=== PATIENT | male | born 1950 | race Caucasian/White ===

== ENCOUNTER 2022-08-23 13:56 | Emergency (ER) | payer MEDICARE, OTHER, SELFPAY ==
[2022-08-23] VITALS (10 sets, daily range): BP systolic 94–176; BP diastolic 71–99; PULSE 72–83; RESP 14–20; TEMP 36.8; O2SAT 88–100; BMI 25.2
--- NOTE | 2022-08-23 14:07 | ECG_ITS ---
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
--- NOTE | 2022-08-23 14:07 | XR_ITS ---
The [place] [id number] Patient Name: LYSSA VÁZQUEZ MRN: [id number] date: 1950 Sex: M Assigned Patient Location: ER Current Patient Location: ED.MAIN Accession/Order Number: [id number] Exam Date: 08/23/2022 14:20 Report Date: 08/23/2022 15:00 At the request of: ASTER LOPES Procedure: XR chest 1V EXAMINATION: XR chest 1V HISTORY: Dyspnea COMPARISON: XR chest 04/22/2022 FINDINGS: LUNGS: Hyperexpanded lungs without appreciable infiltrates or mass. VASCULATURE: No increased pulmonary vasculature. PLEURA: No pneumothorax, effusion, or pleural thickening. CARDIAC: No cardiomegaly or cardiac silhouette abnormality. MEDIASTINUM: No visible mass or adenopathy. BONES: No fracture or visible bone lesion. OTHER: Negative. IMPRESSION: 1. No acute cardiopulmonary process. Stable chest. Electronically authenticated by: HUGO DELEON Date: 08/23/2022 15:00
--- NOTE | 2022-08-23 14:11 | ED.SOB1 ---
HPI - SOB/Dyspnea General Chief Complaint: Shortness of Breath/Dyspnea Stated Complaint: SHORTNESS OF BREATH Time Seen by Provider: 08/23/22 13:58 Source: patient and family Mode of arrival: walk-in Limitations: no limitations History of Present Illness HPI Narrative: Patient is a 72-year-old male who presents to the emergency department for the evaluation of increasing shortness of breath over the last three days. 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 He wears oxygen by 3 L most of the time while he is at home and ambulatory although he arrives without oxygen. He states he is more winded when he is up and moving around although he states he is in no distress or significant dyspnea at rest. He reports some tightness in the chest when he feels like he cannot take a deep breath but has no chest pain. He denies fevers, vomiting, diarrhea, leg swelling. He has had cough with yellow sputum production. No hemoptysis. He has not been on any recent antibiotics or steroids. Related Data Previous Rx's Medication Instructions Recorded azithromycin 250 mg tablet See Rx Instructions PO .COMPLEX #6 08/23/22 (Zithromax Z-Robert) tabs prednisone 20 mg tablet 60 mg PO DAILY #12 tabs 08/23/22 Allergies Allergy/AdvReac Type Severity Reaction Status Date / Time ciprofloxacin [From Cipro] AdvReac Severe Cramping Verified 08/23/22 14:56 of the Muscles levofloxacin AdvReac Severe Cramping Verified 08/23/22 14:56 of the Muscles Review of Systems ROS Constitutional Denies: fever or chills Ears, nose, mouth, and throat Denies: throat pain Cardiovascular Denies: chest pain Respiratory Reports: shortness of breath and cough Gastrointestinal Denies: nausea or vomiting Integumentary/Breast Denies: rash Allergic/Immunologic Denies: hives PFSH PFSH Social History Smoking status: Former smoker Exam Narrative Exam Narrative: Gen.: Awake, alert, in no distress Head: Normocephalic, atraumatic ENT: Moist mucous membranes Respiratory: No respiratory distress, speaks in full sentences, diminished lung sounds globally Cardio: Regular rate and rhythm Gastrointestinal: Abdomen is soft, nondistended and nontender to palpation Extremities: Moves extremities equally, no injuries noted, no pedal edema Psych: Normal mood and affect Neuro: No focal neuro deficit Skin: Warm, dry, intact Constitutional Vital Signs - 24 hr 08/23/22 14:00 08/23/22 14:27 08/23/22 14:28 Temperature 98.2 F Pulse Rate 83 Pulse Rate [Monitor] 83 Respiratory Rate 18 Blood Pressure [Left Arm] 176/99 H Pulse Oximetry 88 L 99 Oxygen Delivery Method Room Air Nasal Cannula Oxygen Delivery Flow Rate 2.5 Course Vital Signs Vital signs: Vital Signs Temperature 98.2 F 08/23/22 14:00 Pulse Rate 83 08/23/22 14:00 Respiratory Rate 18 08/23/22 14:00 Blood Pressure 176/99 H 08/23/22 14:00 Pulse Oximetry 88 L 08/23/22 14:00 Oxygen Delivery Method Room Air 08/23/22 14:00 Temperature 98.2 F 08/23/22 14:00 Pulse Rate 83 08/23/22 14:27 Respiratory Rate 18 08/23/22 14:00 Blood Pressure 176/99 H 08/23/22 14:00 Pulse Oximetry 99 08/23/22 14:28 Oxygen Delivery Method Nasal Cannula 08/23/22 14:28 Oxygen Delivery Flow Rate 2.5 08/23/22 14:28 MDM - SOB/Dyspnea MDM Narrative Medical decision making narrative: Patient was treated with IV steroids, breathing treatments in the emergency department. He has no hypoxia on his regular home oxygen by nasal cannula. Lab studies show normal troponin and BNP. Chest x-ray is stable. Patient with no tachycardia and blood pressure improved on reevaluation. He will be started on antibiotics and steroids for chronic obstructive pulmonary disease exacerbation. He is encouraged to continue to wear his oxygen [id number], continue breathing treatments and inhalers at home. Follow-up with pulmonology and PCP and return to the emergency department if symptoms change or worsen. Patient reevaluated by attending physician prior to discharge in no distress. Medical Records Attestation: I reviewed the patient's medical records. Lab Data Attestation: I reviewed the patient's lab results. Labs: Lab Results 08/23/22 Range/Units 14:10 WBC 10.3 (4.0-11.0) 10^3/uL RBC 4.69 L (4.70-6.10) 10^6/uL Hgb 15.2 (14.0-18.0) g/dL Hct 46.9 (42.0-54.0) % MCV 100.0 H (80.0-94.0) fL MCH 32.4 (25.9-34.0) pg MCHC 32.4 (29.9-35.2) g/dL RDW 12.7 (11.0-15.0) % Plt Count 231 (150-450) 10^3/uL MPV 10.3 (9.5-13.5) fL Neut % (Auto) 70.5 (43.0-75.0) % Lymph % (Auto) 17.6 L (20.5-60.0) % [place] % (Auto) 7.1 (1.7-12.0) % Eos % (Auto) 3.2 (0.9-7.0) % Baso % (Auto) 0.3 (0.2-2.0) % Neut # (Auto) 7.2 H (1.4-6.5) 10^3/uL Lymph # (Auto) 1.8 (1.2-3.8) 10^3/uL [place] # (Auto) 0.7 (0.3-0.8) 10^3/uL Eos # (Auto) 0.3 (0.0-0.7) 10^3/uL Baso # (Auto) 0.0 (0.0-0.1) 10^3/uL Abs Immat Gran (auto) 0.13 H (0.00-0.03) 10^3/uL Imm/Tot Granulo (auto) 1.3 H (0.0-0.5) % PT 9.9 (9.0-11.6) sec INR 0.93 APTT 29.2 (22.3-36.2) sec Sodium 141 (136-145) mmol/L Potassium 4.1 (3.5-5.1) mmol/L Chloride 103 (98-107) mmol/L Carbon Dioxide 33.0 H (21.0-32.0) mmol/L Anion Gap 9.1 BUN 11.0 (7.0-18.0) mg/dL Creatinine 0.80 (0.70-1.30) mg/dL Est GFR ( Amer) >60 (>=60) Est GFR (Non-Af Amer) >60 (>=60) BUN/Creatinine Ratio 13.8 Glucose 105 (74-106) mg/dL Calcium 9.0 (8.5-10.1) mg/dL Total Bilirubin 0.3 (0.2-1.0) mg/dL AST 22 (15-37) U/L ALT 37 (16-63) U/L Alkaline Phosphatase 82 (46-116) U/L Troponin I High Sens 9.0 (4.0-76.1) pg/mL NT-Pro-B Natriuret Pep 255.0 (<=900.0) pg/mL Total Protein 7.4 (6.4-8.2) g/dL Albumin 3.8 (3.4-5.0) g/dL Globulin 3.6 g/dL Albumin/Globulin Ratio 1.1 Imaging Data Chest x-ray: Radiologist's impression: Procedure: XR chest 1V EXAMINATION: XR chest 1V HISTORY: Dyspnea COMPARISON: XR chest 04/22/2022 FINDINGS: LUNGS: Hyperexpanded lungs without appreciable infiltrates or mass. VASCULATURE: No increased pulmonary vasculature. PLEURA: No pneumothorax, effusion, or pleural thickening. CARDIAC: No cardiomegaly or cardiac silhouette abnormality. MEDIASTINUM: No visible mass or adenopathy. BONES: No fracture or visible bone lesion. OTHER: Negative. IMPRESSION: 1. No acute cardiopulmonary process. Stable chest. Electronically authenticated by: HUGO DELEON Date: 08/23/2022 15:00 ECG Data Attestation: ?I have reviewed the pertinent ECG results. (Normal sinus rhythm at a rate of seventy-two with no acute [address] elevation or ectopy. EKG reviewed by attending physician) ECG interpretation date: 08/23/22 ECG interpretation time: 14:14 Discharge Plan Discharge Chief Complaint: Shortness of Breath/Dyspnea Clinical Impression: Shortness of breath, Chronic obstructive pulmonary disease Patient Disposition: Home, Self-Care Time of Disposition Decision: 15:07 Condition: Good Prescriptions / Home Meds: New prednisone 20 mg tablet 60 mg PO DAILY Qty: 12 0RF Rx Instructions: 3 tabs daily for 2 days, then 2 tabs daily for 2 days, then 1 tab daily for 2 days azithromycin [Zithromax Z-Robert] 250 mg tablet See Rx Instructions .ROUTE .COMPLEX Qty: 6 0RF Rx Instructions: For 250 mg dose pack: take 500 mg today (day 1), then 250 mg for 4 days (days 2-5) Instructions: COPD (Chronic Obstructive Pulmonary Disease) (ED), Dyspnea (ED) Stand Alone Forms: Portal Instructions Referrals: BRITTANI CALERO [Primary Care Provider] - 1 week
[2022-08-23 14:27] LABS: Basophils Percent Auto 0.3 % (0.2-2.0); Eosinophils Absolute Auto 0.3 10^3/uL (0.0-0.7); Eosinophils Percent Auto 3.2 % (0.9-7.0); Hematocrit 46.9 % (42.0-54.0); Hemoglobin 15.2 g/dL (14.0-18.0); Immature Granulocytes Abs Auto 0.13 10^3/uL (0.00-0.03); Immature Granulocytes Pct Auto 1.3 % (0.0-0.5); Lymphocytes Absolute Auto 1.8 10^3/uL (1.2-3.8); Lymphocytes Percent Auto 17.6 % (20.5-60.0); Mean Corpuscular HGB Conc 32.4 g/dL (29.9-35.2); Mean Corpuscular Hemoglobin 32.4 pg (25.9-34.0); Mean Platelet Volume 10.3 fL (9.5-13.5); Monocytes Absolute Auto 0.7 10^3/uL (0.3-0.8); Monocytes Percent Auto 7.1 % (1.7-12.0); Neutrophils Absolute Auto 7.2 10^3/uL (1.4-6.5); Neutrophils Percent Auto 70.5 % (43.0-75.0); Platelet Count 231 10^3/uL (150-450); Red Blood Count 4.69 10^6/uL (4.70-6.10); Red Cell Distribution Width 12.7 % (11.0-15.0); White Blood Count 10.3 10^3/uL (4.0-11.0)
[2022-08-23] MEDS: IPRATROPIUM/ALBUTEROL SULFATE 3 ML AMPUL.NEB IH (14:27)
[2022-08-23] MEDS: ALBUTEROL SULFATE 2.5 MG/3 ML VIAL NEB IH (14:27)
--- NOTE | 2022-08-23 14:29 | RESP.RT ---
titrated down to 1L
[2022-08-23 14:47] LABS: INR 0.93; Partial Thromboplastin Time 29.2 sec (22.3-36.2); Prothrombin Time 9.9 sec (9.0-11.6)
[2022-08-23 14:51] LABS: Alanine Aminotransferase 37 U/L (16-63); Albumin Globulin Ratio 1.1; Albumin Level 3.8 g/dL (3.4-5.0); Alkaline Phosphatase 82 U/L (46-116); Anion Gap 9.1; Aspartate Amino Transferase 22 U/L (15-37); BUN Creatinine Ratio 13.8; Bilirubin Total 0.3 mg/dL (0.2-1.0); Chloride 103 mmol/L (98-107); Estimated GFR (African America >60 (>=60); Estimated GFR (Non-African Ame >60 (>=60); Globulin 3.6 g/dL; Glucose 105 mg/dL (74-106); Potassium 4.1 mmol/L (3.5-5.1); Sodium 141 mmol/L (136-145); Total Protein 7.4 g/dL (6.4-8.2)
[2022-08-23] MEDS: METHYLPREDNISOLONE SOD SUCC PF 125 MG/2 ML VIAL IVP (14:55)
--- NOTE | 2022-08-23 15:06 | PC.NURSE ---
placed on home O2 upon arrival of 3L NC -- pt did not bring his home 02. SpO2 upon arrival was 88-89% on RA. Pt did walk back to room. pt has h/o COPD
== END 2022-08-23 15:48 | disposition home or self-care (01) ==
PROVIDERS: Physician Assistant; Emergency Provider Emergency Medicine Emergency Medical Services; PCP Family Medicine
DX: R06.02 Shortness of breath (principal); J44.9 Chronic obstructive pulmonary disease, unspecified; Z99.81 Dependence on supplemental oxygen; Z87.891 Personal history of nicotine dependence
CPT/HCPCS: 36415; 71045; 80053; 83880; 84484; 85025; 85610; 85730; 93005; 94640; 96374; 99285; J2930

== ENCOUNTER 2022-12-31 12:27 | Emergency (ER) | payer MEDICARE, OTHER, SELFPAY ==
[2022-12-31] VITALS (12 sets, daily range): BP systolic 128–180; BP diastolic 70–98; PULSE 70–80; RESP 8–22; TEMP 36.7; O2SAT 88–100; BMI 24.4
--- NOTE | 2022-12-31 12:30 | XR_ITS ---
The [address] [address] Patient Name: LYSSA VÁZQUEZ MRN: [id number] date: 1950 Sex: M Assigned Patient Location: ER Current Patient Location: ER Accession/Order Number: [id number] Exam Date: 12/31/2022 13:15 Report Date: 12/31/2022 14:08 At the request of: SAPNA BRUNO Procedure: XR chest 1V EXAM: XR chest 1V INDICATION: cp. COMPARISON: Chest radiograph 08/23/2022 TECHNIQUE: Single frontal view of the chest FINDINGS: Normal cardiomediastinal contours. No acute infiltrative process. No pleural effusion or pneumothorax. No acute osseous abnormality. XR/XR chest 1V IMPRESSION: No acute cardiopulmonary process. Electronically authenticated by: ASHOK WATKINS Date: 12/31/2022 14:08
--- NOTE | 2022-12-31 12:30 | ECG_ITS ---
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
--- NOTE | 2022-12-31 12:41 | PC.NURSE ---
Patient pulse ox, 88-90% on room air after walking back to room, patient feels SOB with exertion. After resting pulsd Ox. up to 96% on room air. Patient does use home oxygen.
--- NOTE | 2022-12-31 12:48 | ED.SOB1 ---
HPI - SOB/Dyspnea General Chief Complaint: Shortness of Breath/Dyspnea Stated Complaint: CHEST PAIN FLAM AND SHORTNESS OF BREATH Time Seen by Provider: 12/31/22 12:30 Source: patient Mode of arrival: walk-in Limitations: no limitations History of Present Illness HPI Narrative: Patient presented to us with a 2 days 3 of cough productive associated shortness of breath and chest congestion, there was no exposure to anybody with similar symptoms the patient also had no fever chills or nausea or vomiting or any diarrhea Otherwise he have no complaints Related Data Home Medications Medication Instructions Recorded Confirmed albuterol sulfate 90 mcg/actuation 2 puff inhalation Q6H PRN 12/31/22 12/31/22 aerosol inhaler shortness of breath or wheezing budesonide-formoterol HFA 160 1 puff inhalation Q12H 12/31/22 12/31/22 mcg-4.5 mcg/actuation aerosol inhaler (Symbicort) ipratropium 0.5 mg-albuterol 3 mg ml inhalation Q6H 12/31/22 (2.5 mg base)/3 mL nebulization soln levothyroxine 88 mcg tablet 88 mcg PO DAILY 12/31/22 12/31/22 metoprolol succinate 100 mg 100 mg PO DAILY 12/31/22 12/31/22 tablet,extended release 24 hr primidone 50 mg tablet 50 mg PO DAILY 12/31/22 12/31/22 tamsulosin 0.4 mg capsule 0.4 mg PO Q24H 12/31/22 12/31/22 Previous Rx's Medication Instructions Recorded azithromycin 250 mg tablet See Rx Instructions PO .COMPLEX #6 12/31/22 (Zithromax Z-Robert) tabs prednisone 20 mg tablet 40 mg PO DAILY 5 days #10 tabs 12/31/22 Allergies Allergy/AdvReac Type Severity Reaction Status Date / Time ciprofloxacin [From Cipro] AdvReac Severe Cramping Verified 12/31/22 12:33 of the Muscles levofloxacin AdvReac Severe Cramping Verified 12/31/22 12:33 of the Muscles Review of Systems ROS Status of ROS 10 or more systems reviewed and unremarkable except as noted in history and below PFSH PFSH Social History Smoking status: Former smoker Exam Narrative Exam Narrative: Nurses notes and vital signs reviewed and patient is not hypoxic. General: Well-appearing and in no apparent distress. Skin: Warm, dry, no pallor noted. No rash. Head: Normocephalic, atraumatic. Neck: Supple, non-tender. Eye: Pupils are equal, round and EOMI. No scleral icterus. Ears, Nose, Mouth, and Throat: TM are clear, no nasal mucosal hypertrophy. Oral mucosa is moist, no posterior oropharynx erythema, uvula is mid-line Cardiovascular: Regular Rate and Rhythm without murmur, gallop or rub. Respiratory: No accessory muscle use or respiratory distress. Lungs there is distant breathing sound in both lung rocha and decreased airway in the bases Chest Wall: no tenderness Back: No midline thoracic or lumbar vertebral tenderness. No CVA tenderness Musculoskeletal: normal ROM, no calf or popliteal tenderness, no lower extremity edema/swelling GI: Abdomen is soft, non-distended. Normal bowel sounds. No masses appreciated. No tenderness to palpation. No rebound, guarding, or rigidity noted. Neurological: A&O x4. No cranial nerve dysfunction observed. No truncal ataxia. Moves all extremities. Sensation intact. Psychiatric: Cooperative and interactive. Normal mood and affect. Constitutional Vital Signs, click to edit/add: Last Vital Signs Temp 98.0 F 12/31/22 12:33 Pulse 70 12/31/22 14:00 Resp 13 12/31/22 14:00 BP 128/70 12/31/22 14:00 Pulse Ox 95 12/31/22 14:00 O2 Del Method Room Air 12/31/22 13:02 Course Vital Signs Vital signs: Vital Signs Temperature 98.0 F 12/31/22 12:33 Pulse Rate 80 12/31/22 12:33 Respiratory Rate 22 12/31/22 12:33 Blood Pressure 180/98 H 12/31/22 12:33 Pulse Oximetry 90 L 12/31/22 12:33 Oxygen Delivery Method Room Air 12/31/22 12:33 Temperature 98.0 F 12/31/22 12:33 Pulse Rate 70 12/31/22 14:00 Respiratory Rate 13 12/31/22 14:00 Blood Pressure 128/70 12/31/22 14:00 Pulse Oximetry 95 12/31/22 14:00 Oxygen Delivery Method Room Air 12/31/22 13:02 MDM - SOB/Dyspnea MDM Narrative Medical decision making narrative: The patient EKG showing sinus rhythm with a heart rate of [address] elevation or depression he also has a right bundle masha block The patient chest x-ray showed no acute pathology and the CBC and chemistry are within normal Also negative troponin but the patient did not had any chest pain mostly chest congestion secondary to his COPD exacerbation The patient feeling better after being treated with Solu-Medrol he had to stop his prednisone 5 mg daily right now and continue 5 Days course of 40 mg daily The patient also started on a Z-Robert he is instructed to follow-up with his primary care within a week The patient is to follow up with primary care physician in next 2-3 days or to return to the emergency department should any of the signs or symptoms worsen or new symptoms develop. The patient agrees with the following Diagnosis and Treatment plan and the patient will be discharged home. Lab Data Labs: Lab Results 12/31/22 Range/Units 12:45 WBC 9.9 (4.0-11.0) 10^3/uL RBC 4.45 L (4.70-6.10) 10^6/uL Hgb 14.5 (14.0-18.0) g/dL Hct 44.5 (42.0-54.0) % MCV 100.0 H (80.0-94.0) fL MCH 32.6 (25.9-34.0) pg MCHC 32.6 (29.9-35.2) g/dL RDW 12.6 (11.0-15.0) % Plt Count 175 (150-450) 10^3/uL MPV 10.6 (9.5-13.5) fL Neut % (Auto) 62.4 (43.0-75.0) % Lymph % (Auto) 24.7 (20.5-60.0) % [place] % (Auto) 7.9 (1.7-12.0) % Eos % (Auto) 3.2 (0.9-7.0) % Baso % (Auto) 0.5 (0.2-2.0) % Neut # (Auto) 6.2 (1.4-6.5) 10^3/uL Lymph # (Auto) 2.4 (1.2-3.8) 10^3/uL [place] # (Auto) 0.8 (0.3-0.8) 10^3/uL Eos # (Auto) 0.3 (0.0-0.7) 10^3/uL Baso # (Auto) 0.1 (0.0-0.1) 10^3/uL Abs Immat Gran (auto) 0.13 H (0.00-0.03) 10^3/uL Imm/Tot Granulo (auto) 1.3 H (0.0-0.5) % PT 10.4 (9.0-11.6) sec INR 0.98 Sodium 140 (136-145) mmol/L Potassium 4.3 (3.5-5.1) mmol/L Chloride 103 (98-107) mmol/L Carbon Dioxide 33.1 H (21.0-32.0) mmol/L Anion Gap 8.2 BUN 14.0 (7.0-18.0) mg/dL Creatinine 0.90 (0.70-1.30) mg/dL Est GFR ( Amer) >60 (>=60) Est GFR (Non-Af Amer) >60 (>=60) BUN/Creatinine Ratio 15.6 Glucose 92 (74-106) mg/dL Calcium 8.9 (8.5-10.1) mg/dL Total Bilirubin 0.7 (0.2-1.0) mg/dL AST 33 (15-37) U/L ALT 38 (16-63) U/L Alkaline Phosphatase 76 (46-116) U/L Troponin I High Sens 21.7 (4.0-76.1) pg/mL Total Protein 7.0 (6.4-8.2) g/dL Albumin 3.8 (3.4-5.0) g/dL Globulin 3.2 g/dL Albumin/Globulin Ratio 1.2 Discharge Plan Discharge Chief Complaint: Shortness of Breath/Dyspnea Clinical Impression: COPD exacerbation Patient Disposition: Home, Self-Care Condition: Good Prescriptions / Home Meds: New azithromycin [Zithromax Z-Robert] 250 mg tablet See Rx Instructions .ROUTE .COMPLEX Qty: 6 0RF Rx Instructions: For 250 mg dose pack: take 500 mg today (day 1), then 250 mg for 4 days (days 2-5) prednisone 20 mg tablet 40 mg PO DAILY 5 Days Qty: 10 0RF Discontinued prednisone 20 mg tablet 60 mg PO DAILY Qty: 12 0RF Rx Instructions: 3 tabs daily for 2 days, then 2 tabs daily for 2 days, then 1 tab daily for 2 days azithromycin [Zithromax Z-Robert] 250 mg tablet See Rx Instructions .ROUTE .COMPLEX Qty: 6 0RF Rx Instructions: For 250 mg dose pack: take 500 mg today (day 1), then 250 mg for 4 days (days 2-5) No Action albuterol sulfate 90 mcg/actuation HFA aerosol inhaler 2 puff INHALATION Q6H PRN (Reason: shortness of breath or wheezing) budesonide-formoterol [Symbicort] 160-4.5 mcg/actuation HFA aerosol inhaler 1 puff INHALATION Q12H ipratropium-albuterol 0.5 mg-3 mg(2.5 mg base)/3 mL solution for nebulization INHALATION Q6H levothyroxine 88 mcg tablet 88 mcg PO DAILY metoprolol succinate 100 mg tablet extended release 24 hr 100 mg PO DAILY primidone 50 mg tablet 50 mg PO DAILY tamsulosin 0.4 mg capsule 0.4 mg PO Q24H Instructions: COPD (Chronic Obstructive Pulmonary Disease) (ED) Stand Alone Forms: Portal Instructions Referrals: BRITTANI CALERO [Primary Care Provider] - 1 week
[2022-12-31 13:02] LABS: Basophils Absolute Auto 0.1 10^3/uL (0.0-0.1); Basophils Percent Auto 0.5 % (0.2-2.0); Eosinophils Absolute Auto 0.3 10^3/uL (0.0-0.7); Eosinophils Percent Auto 3.2 % (0.9-7.0); Hematocrit 44.5 % (42.0-54.0); Hemoglobin 14.5 g/dL (14.0-18.0); Immature Granulocytes Abs Auto 0.13 10^3/uL (0.00-0.03); Immature Granulocytes Pct Auto 1.3 % (0.0-0.5); Lymphocytes Absolute Auto 2.4 10^3/uL (1.2-3.8); Lymphocytes Percent Auto 24.7 % (20.5-60.0); Mean Corpuscular HGB Conc 32.6 g/dL (29.9-35.2); Mean Corpuscular Hemoglobin 32.6 pg (25.9-34.0); Mean Platelet Volume 10.6 fL (9.5-13.5); Monocytes Absolute Auto 0.8 10^3/uL (0.3-0.8); Monocytes Percent Auto 7.9 % (1.7-12.0); Neutrophils Absolute Auto 6.2 10^3/uL (1.4-6.5); Neutrophils Percent Auto 62.4 % (43.0-75.0); Platelet Count 175 10^3/uL (150-450); Red Blood Count 4.45 10^6/uL (4.70-6.10); Red Cell Distribution Width 12.6 % (11.0-15.0); White Blood Count 9.9 10^3/uL (4.0-11.0)
[2022-12-31 13:09] LABS: INR 0.98; Prothrombin Time 10.4 sec (9.0-11.6)
[2022-12-31 13:13] LABS: Anion Gap 8.2
[2022-12-31 13:16] LABS: Alanine Aminotransferase 38 U/L (16-63); Albumin Globulin Ratio 1.2; Albumin Level 3.8 g/dL (3.4-5.0); Alkaline Phosphatase 76 U/L (46-116); Aspartate Amino Transferase 33 U/L (15-37); BUN Creatinine Ratio 15.6; Bilirubin Total 0.7 mg/dL (0.2-1.0); Calcium 8.9 mg/dL (8.5-10.1); Carbon Dioxide 33.1 mmol/L (21.0-32.0); Chloride 103 mmol/L (98-107); Estimated GFR (African America >60 (>=60); Estimated GFR (Non-African Ame >60 (>=60); Globulin 3.2 g/dL; Glucose 92 mg/dL (74-106); Potassium 4.3 mmol/L (3.5-5.1); Sodium 140 mmol/L (136-145); Troponin I High Sensitivity 21.7 pg/mL (4.0-76.1)
[2022-12-31] MEDS: IPRATROPIUM/ALBUTEROL SULFATE 3 ML AMPUL.NEB IH (13:16)
[2022-12-31] MEDS: METHYLPREDNISOLONE SOD SUCC PF 125 MG/2 ML VIAL IVP (13:21)
[2022-12-31] MEDS: AZITHROMYCIN 250 MG TABLET 500 MG PO (14:38)
== END 2022-12-31 14:49 | disposition home or self-care (01) ==
PROVIDERS: Emergency Provider Emergency Medicine; PCP Family Medicine
DX: J44.1 Chronic obstructive pulmonary disease with (acute) exacerbation (principal); Z87.891 Personal history of nicotine dependence; Z79.899 Other long term (current) drug therapy; Z79.890 Hormone replacement therapy
CPT/HCPCS: 36415; 71045; 80053; 84484; 85025; 85610; 93005; 94640; 96374; 99285; J2930

== ENCOUNTER 2023-02-08 13:03 | Outpatient (OUT) | payer MEDICARE, OTHER, SELFPAY | END 2023-02-08 13:04 | disposition home or self-care (01) | LOC: LAB 13:05 | PROVIDERS: PCP Family Medicine; Visit Provider Psychiatry & Neurology Neurology | DX: G21.8 Other secondary parkinsonism (principal) | CPT/HCPCS: 36415; 82607; 82746; 84443 ==

== ENCOUNTER 2023-03-21 10:30 | Outpatient (OUT) | payer MEDICARE, OTHER, SELFPAY ==
--- OUTSIDE RECORDS SUMMARY | 2023-03-21 10:37 | XMS_ITS | CCD ---
Author Name Unknown Address [address] [facility] [place] [address] Organization [facility] Care Team Providers Care Court Recorder Name Role Phone SIOBHAN CALERO Primary Care Physician [phone] SUSANA KAYE Attending Unavailable LOS George, SUSANA Admitting Unavailable MARCELLA HENDERSON Consulting Unavailable ABDIAS, DR PETER Primary Care Unavailable LOS George, SUSANA Consulting Unavailable DEEPIKA HENDRICKS Admitting Unavailable DEEPIKA HENDRICKS Attending Unavailable DEEPIKA HENDRICKS Consulting Unavailable ABDIAS, DR PETER Primary Care Unavailable LOS George, SUSANA Admitting Unavailable ADRIENNE, DR HUGO Mahajan Consulting Unavailable SUSANA KAYE Attending Unavailable ABDIAS, DR PETER Primary Care Unavailable SUSANA KAYE Consulting Unavailable ABDIAS, DR PETER Primary Care Unavailable DIAB ., SAPNA Admitting Unavailable LETICIA MARTINEZ Consulting Unavailable DAMION .ODINM Attending Unavailable DAMION ., SAPNA Consulting Unavailable ABDIAS, DR PETER Admitting Unavailable ABDIAS, DR PETER Attending Unavailable ABDIAS, DR PETER Consulting Unavailable ABDIAS, DR PETER Primary Care Unavailable Edwige Lindsey Unavailable Guy PATRICIA Attending Unavailable SIOBHAN KRAUSE Attending Unavailable SIOBHAN KRAUSE Attending Unavailable KVNG ARTHUR Attending Unavailable KVNG ARTHUR Referring Unavailable SIOBHAN CALERO Primary Care Unavailable Allergies Allergy Classification Reported Allergen(s) Allergy Type Date of Onset Reaction(s) Facility (1 source) Ciprofloxacin Drug Allergy [facility] Repository (2 sources) levoFLOXacin; Translations: [LEVOFLOXACIN] Drug Allergy 04-06-2021 [facility] Repository (1 source) Ciprofloxacin; Translations: [CIPROFLOXACIN] Drug Allergy 01-06-2023 [facility] Repository Medications Current Medications Medication Drug Class(es) Dates Sig (Normalized) Sig (Original) Aircast AirSport Ankle Brace 1 (1 source) Start: 11-13-2016 Aircast AirSport Ankle Brace 1 as directed air cast as directed for days Nov, Active Ascorbic Acid (1 source) Vitamin C Vitamin C Active Aspir-81 (1 source) Aspir-81 Active Symbicort (3 sources) Corticosteroid, beta2-Adrenergic Agonist Start: 12-11-2018 Symbicort Start Date: 12/11/18 Status: Ordered Symbicort Active Co Q-10 (1 source) Co Q-10 Active levothyroxine sodium 0.125 mg oral tablet (2 sources) l-Thyroxine Start: 03-22-19 levothyroxine 125 mcg (0.125 mg) Tab Refills(s) 0 Start Date: 03/22/22 Status: Ordered Lisinopril (1 source) Angiotensin Converting Enzyme Inhibitor Lisinopril Active 24 hr metoprolol succinate 50 mg extended release oral tablet (3 sources) beta-Adrenergic Ace Start: 12-12-19 take 1 tablet by mouth once daily metoprolol 50 mg ER Tab 50 mg = 1 tab(s), Oral, Daily Start Date: 12/11/18 Status: Ordered Metoprolol Tartr ate Active predniSONE 20 mg oral tablet (3 sources) Start: 11-18-2022 take 1 tablet by sony th every twenty-four hours predniSONE 20 MG 1 tablet Orally Once a day for 5 days Nov, Active Start: 03-22-2022 predniSONE 5 m g Tab Refills(s) 0 Start Date: 03/22/22 Status: Ordered primidone 50 mg oral tablet (2 sources) Anti-epileptic Agent Start: 08-24-2022 primidone 50 mg Tab Refills(s) 0 Start Date: 08/24/22 Status: Ordered Primidone Active simvastatin 40 mg oral tablet (2 sources) HMG-CoA Reductase Inhibitor Start: 12-11-2018 take 1 tablet by mouth once daily simvastatin 40 mg Tab 40 mg = 1 tab(s), Oral, Daily Start Date: 12/11/18 Status: Ordered Spiriva HandiHaler (1 source) Spiriva HandiHal er Active tamsulosin hydrochloride 0.4 mg oral capsule (3 sources) alpha-Adrenergic Ace Start: 03-22-2022 End: 03-17-2023 take 1 capsule by mouth twice daily tamsulosin 0.4 mg Cap 0.4 mg = 1 cap(s), Oral, BID, X 90 day(s), # 180 cap(s), Refills(s) 3, Pharmacy: [facility]/pharmacy #[id number], 175, cm, 03/22/22 14:18:00 EST, Height/Length Dosing, 90, kg, 03/22/22 14:18:00 EST, Weight Dosing Start Date: 03/22/22 Stop Date: 03/17/23 Status: Ordered Tamsulosin HCl A ctive Vitamin B Complex (1 source) Vitamin B-Comple x Active Vitamin D (1 source) Vitamin D Active Vitamin E (1 source) Vitamin E Active Completed/Discontinued Medications Medication Drug Class(es) Dates Sig (Normalized) Sig (Original) atorvastatin (1 source) HMG-CoA Reductase Inhibitor Atorvastatin Calcium Not-Taking Problems Active Problems Problem Classification Problem Date Documented Date Episodic/Chronic Acute myocardial infarction (2 sources) Myocardial infarction 12-11-2018 Chronic Asthma (2 sources) Asthma 12-11-2018 Chronic Chronic obstructive pulmonary disease and bronchiectasis (6 sources) Chronic obstructive pulmonary disease with (acute) exacerbation; Translations: [Chronic obstructive pulmonary disease, unspecified] Onset: 2 Chronic Coronary atherosclerosis and other heart disease (1 source) Atherosclerotic heart disease of havasupai coronary artery without angina pectoris; Translations: [ASHD [place] CA W/O ANGINA PECTORIS] Onset: 3 Chronic Disorders of lipid metabolism (1 source) Pure hypercholesterolemia, unspecified; Translations: [PURE HYPERCHOLESTEROLEMIA UNSPEC] Onset: 3 Chronic Essential hypertension (1 source) Essential (primary) hypertension; Translations: [ESSENTIAL PRIMARY HYPERTENSION] Onset: 3 Chronic Genitourinary symptoms and ill-defined conditions (2 sources) Post-micturition incontinence 03-03-2020 Chronic Genitourinary symptoms and ill-defined conditions (2 sources) Nocturia 03-03-2020 Episodic Hyperplasia of prostate (6 sources) Benign prostatic hypertrophy with outflow obstruction; Translations: [Benign prostatic hyperplasia with lower urinary tract symptoms] Onset: 3 Chronic Menopausal disorders (1 source) Hormone replacement therapy; Translations: [HORMONE REPLACEMENT THERAPY] Onset: 3 Episodic Mood disorders (2 sources) Depressive disorder 12-11-2018 Chronic Other aftercare (1 source) skilled nursing (current) use of aspirin; Translations: [SHELTER CURRENT USE OF ASPIRIN] Onset: 3 Episodic Other aftercare (1 source) Other prison (current) drug therapy; Translations: [OTH MUSEUM SECURITY CHIEF CURRENT DRUG THERAPY] Onset: 3 Episodic Other lower respiratory disease (4 sources) Shortness of breath; Translations: [SHORTNESS OF BREATH] Onset: 2 Episodic Other lower respiratory disease (1 source) Personal history of other diseases of the respiratory system Episodic Other lower respiratory disease (1 source) Wheezing Episodic Other male genital disorders (2 sources) Impotence 12-11-2018 Chronic Other nervous system disorders (1 source) Other secondary parkinsonism; 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] Onset: 4 Chronic Other nervous system disorders (2 sources) Tremor 12-11-2018 Episodic Other screening for suspected conditions (not mental disorders or infectious disease) (4 sources) Raised prostate specific antigen; Translations: [Elevated prostate specific antigen [PSA]] Onset: 3 Episodic Residual codes; unclassified (2 sources) Sleep apnea 12-11-2018 Chronic Residual codes; unclassified (1 source) Sleep apnea, unspecified; Translations: [SLEEP APNEA UNSPECIFIED] Onset: 3 Chronic Respiratory failure; insufficiency; arrest (adult) (1 source) Dependence on supplemental oxygen; Translations: [DEPENDENCE ON SUPPLEMENTAL OXYGEN] Onset: 3 Chronic Screening and history of mental health and substance abuse codes (1 source) Personal history of nicotine dependence; Translations: [PERSONAL HISTORY OF NICOTINE DEPEND] Onset: 3 Episodic Substance-related disorders (2 sources) Smoker 03-03-2020 Chronic Comment on above: Added secondary to d ocumentation in Social History. Unclassified (1 source) CONTACT W/AND (SUSP) EXPOS COVID-19; Translations: [CONTACT W/AND (SUSP) EXPOS COVID-19] Onset: 2 Past or Other Problems Problem Classification Problem Date Documented Da te Episodic/Chronic E Codes: Cut/pierceb (1 source) Other foreign body or object entering through skin, initial encounter; Translations: [OTH FB/OBJ ENTERING THRU SKIN INIT] Onset: 09-08-2021 Episodic Immunizations and screening for infectious disease (1 source) Encounter for immunization; Translations: [ENCOUNTER FOR IMMUNIZATION] Onset: 09-08-2021 Episodic Nonspecific chest pain (4 sources) Chest pain, unspecified; Translations: [CHEST PAIN UNSPECIFIED] Onset: 08-15-2021 Episodic Open wounds of extremities (1 source) Laceration without foreign body, left lower leg, initial encounter; Translations: [LACERATION W/O FB LT LOW LEG INIT] Onset: 09-08-2021 Episodic Superficial injury; contusion (3 sources) Abrasion, left lower leg, initial encounter; Translations: [ABRASION LEFT LOWER LEG INITIAL ENC] Onset: 09-04-2021 Episodic Results Test Name Value Interpretation Reference Range Facility CT BRAIN WO CONTon CT BRAIN WO CONT CT BRAIN WO CONT HISTORY: A 72-year-old male with the history of the parkinsonian syndrome and confusion. EXAM/TECHNIQUE: Multidetector spiral CT scan of brain is obtained. Multiplanar reconstruction images are reformatted. All CT scans at this facility use dose modulation, iterative reconstruction, and/or weight based dosing when appropriate to reduce radiation dose to as low as reasonably achievable. COMPARISON: None available. FINDINGS: The ventricular system is normal in size and configuration. There is mild degree of generalized atrophy. There is normal differentiation of li and white matters. There is no evidence of intracranial hemorrhage or acute pathology. The cerebellum and brainstem are unremarkable. No mass effect, midline shift of the structures or extra-axial fluid collections are noted. The calvarium is intact. The visualized paranasal sinuses and mastoid air cells are clear. IMPRESSION: * No evidence of intracranial hemorrhage or acute pathology. * Mild degree of generalized atrophy. Finalized by Yo Parisi MD on 03/08/2023 4:12 PM Normal [facility] Lab Reportson 11-01-2022 Lab Reports [id number]: 127 Normal [facility] Screenson 08-26-2022 Screens [id number] :127 Normal [facility] Patient Educationon 08-25-19 Patient Education Urology Transurethral Resection of the Prostate Transurethral resection of the prostate (TURP) is the removal, or resection, of part of the prostate tissue. This procedure is done to treat an enlarged prostate gland (benign prostatic hyperplasia). The goal of TURP is to remove enough prostate tissue to allow for a normal flow of urine. The procedure will allow you to empty your bladder more completely when you urinate so that you can urinate less often. In a transurethral resection, a thin telescope with a light, a camera, and an electric cutting edge (resectoscope) is passed through the urethra and into the prostate. The opening of the urethra is at the end of the penis. Tell a health care provider about: ? Any allergies you have. ? All medicines you are taking, including vitamins, herbs, eye drops, creams, and umox-sbk-lvpbqyz medicines. ? Any problems you or family members have had with anesthetic medicines. ? Any bleeding problems you have. ? Any surgeries you have had. ? Any medical conditions you have. ? Any prostate infections you have had. What are the risks? Generally, this is a safe procedure. However, problems may occur, including: ? Infection. ? Bleeding. ? Allergic reactions to medicines. ? Blood in the urine (hematuria). ? Damage to nearby structures or organs. Other problems may occur, but they are rare. They include: ? Dry ejaculation, or having no semen come out during orgasm. ? Erectile dysfunction, or being unable to have or keep an erection. ? Scarring that leads to narrowing of the urethra. This narrowing may block the flow of urine. ? Inability to control when you urinate (incontinence). ? Deep vein thrombosis. This is a blood clot that can develop in your leg. ? TURP syndrome. This can happen when you lose too much sodium during or after the procedure. Some signs and symptoms of this condition include: ? Weakness. ? Headaches. ? Nausea or vomiting. ? Muscle cramping. What happens before the procedure? When to stop eating and drinking Follow instructions from your health care provider about what you may eat and drink before your procedure. These may include: ? 8 hours before your procedure ? Stop eating most foods. Do not eat meat, fried foods, or fatty foods. ? Eat only light foods, such as toast or crackers. ? All liquids are okay except energy drinks and alcohol. ? 6 hours before your procedure ? Stop eating. ? Drink only clear liquids, such as water, clear fruit juice, black coffee, plain tea, and sports drinks. ? Do not drink energy drinks or alcohol. ? 2 hours before your procedure ? Stop drinking all liquids. ? You may be allowed to take medicines with small sips of water. If you do not follow your health care provider's instructions, your procedure may be delayed or canceled. Medicines Ask your health care provider about: ? Changing or stopping your regular medicines. This is especially important if you are taking diabetes medicines or blood thinners. ? Taking medicines such as aspirin and ibuprofen. These medicines can thin your blood. Do not take these medicines unless your health care provider tells you to take them. ? Taking asms-uup-ouczfds medicines, vitamins, herbs, and supplements. Surgery safety Ask your health care provider what steps will be taken to help prevent infection. These steps may include: ? Removing hair at the surgery site. ? Washing skin with a germ-killing soap. ? Taking antibiotic medicine. General instructions ? Do not use any products that contain nicotine or tobacco for at least 4 weeks before the procedure. These products include cigarettes, chewing tobacco, and vaping devices, such as e-cigarettes. If you need help quitting, ask your health care provider. ? If you will be going home right after the procedure, plan to have a responsible adult: ? Take you home from the hospital or clinic. You will not be allowed to drive. ? Care for you for the time you are told. What happens during the procedure? ? An IV will be inserted into one of your veins. ? You will be given one or more of the following: ? A medicine to help you relax (sedative). ? A medicine to make you fall asleep (general anesthetic). ? A medicine that is injected into your spine to numb the area below and slightly above the injection site (spinal anesthetic). ? Your legs will be placed in foot rests (stirrups) so that your legs are apart and your knees are bent. ? The resectoscope will be passed through your urethra to your prostate. ? Parts of your prostate will be resected using the cutting edge of the resectoscope. ? Fluid will be passed to rinse out the cut tissues (irrigation). ? The resectoscope will be removed. ? A small, thin tube (catheter) will be passed through your urethra and into your bladder. The catheter will drain urine into a bag outside of your body. The procedure may vary among health care (more content not included)... Normal [facility] Urology Office/Clinic Noteon 08-24-2022 Urology Office/Clinic Note Chief Complaint Follow up to Flomax Dosage Change HPI Staff Follow up to Flomax dosage change. Was previously taking Tamsulosin TID from Dr Goyal. Called for refill, instructed to decrease to BID then follow up. DX: Elevated PSA & BPH Last seen by JUAN JOSÉ in office 03/22/22. To repeat PSA in September then 1yr follow up scheduled for 03/22/23 w/PSA Has not noticed any changes in voiding since decreasing dosage. Content with current voiding habits. No concerns at this time. History of Present Illness staff HPI reviewed and agree. Review of Systems PHQ Score Initial Depression Screen Score: 0 no fever, chills, malaise, myalgia. no rash/lesions. no chest pain, palpitations, or SOB. no abdominal pain, nausea, vomiting. no unilateral calf swelling, redness, pain Physical Exam Vitals & Measurements HR: 68(Peripheral) RR: 16 BP: 130/70 HT: 69 in HT: 175 cm WT: 75.5 kg WT: 166.1 lb BMI: 24.65 General: nontoxic, NAD Mouth: moist mucosa Lungs: normal respiratory effort Cardio: regular rate, good distal perfusion Abdomen: nondistended, no suprapubic distention or tenderness, no CVA tenderness Neurologic: Grossly normal Skin: No rashes or suspicious lesions Assessment/Plan UA today is negative for blood and infection. 1. BPH with urinary obstruction (N40.1: Benign prostatic hyperplasia with lower urinary tract symptoms) per message 06/27/22: --Patient was instructed by Dr. Goyal to take three tablets a day of his tamsulosin, 2 in the morning and 1 in the evening. his prescription is not written to accommodate this many pills and he is running out before he is allowed to refill. Can the quantity per month be changed or how should he handle this? He uses the [facility] mail order. --I've never prescribed that many per day. I would recommend he just use 2 per day (and be sure the rx reflects this) and then schedule f/u w me in about 6-8 weeks to see how he's doing on 2 a day. JUAN JOSÉ Pt is here to discuss the change in dosage of Tamsulosin, was taking 3 tabs a day. Pt is now taking tamsulosin BID. Pt states his symptoms have improved since the change in med dosage and he is highly satisfied with overall symptom control. IPSS 8, QOL 1. Pt is experiencing no side effects. Will continue at this dose. 2. Elevated PSA (R97.20: Elevated prostate specific antigen [PSA]) PSA 03/23 - 2.95 05/22 - 4.70 01/23 - 3.37 03/27 - 2.20 03/08/22 - 4.58 Pt due to repeat PSA f&t in September 2022, as of prior OV, and we will call pt w results (assuming things stable/improve). Then he will f/u in Mar 2023 w another PSA prior. Follow-up With When Contact Information JIMI GARCIA, SIOBHAN Bullock, URL [address] [place] [address] Additional Instructions: Patient Education Transurethral Resection of the Prostate Documentation recorded by the scribara Parker accurately reflects the services(s) I performed and decisions made by me. Authenticated by Siobhan Krause PA-C on 08/24/2022 16:16:14. I, Mariam Parker, personally scribed for Siobhan Krause PA-C on 08/24/2022 15:30:42. . Problem List/Past Medical History Ongoing Asthma BPH with urinary obstruction Depression Elevated PSA Enlarged prostate with urinary obstruction Impotence Myocardial infarction Nocturia Post-void dribbling Sleep apnea Smoker Tremor Historical No qualifying data Procedure/Surgical History Carotid endarterectomy (12/22/2018), Cystoscopy (09/28/2012), Eye surgery, Hand Surgery, Nose Surgery, Repair of inguinal hernia. Medications levothyroxine 125 mcg (0.125 mg) Tab metoprolol 50 mg ER Tab, 50 mg= 1 tab(s), Oral, Daily predniSONE 5 mg Tab primidone 50 mg Tab simvastatin 40 mg Tab, 40 mg= 1 tab(s), Oral, Daily Symbicort tamsulosin 0.4 mg Cap, 0.4 mg= 1 cap(s), Oral, BID, 3 refills Allergies No Known Allergies Social History Alcohol - Denies Alcohol Use, 12/18/2018 Tobacco - Low Risk, 01/22/2019 Former smoker, quit more than 30 days ago Tobacco Use:. Never Smokeless Tobacco Use:. Cigarettes, Household tobacco concerns: No. Yes, 08/24/2022 Family History BPH - benign prostatic hyperplasia: Father. Immunizations Vaccine Date Status Comments zoster vaccine, inactivated 01/11/2022 Recorded influenza virus vaccine, inactivated 01/11/2022 Recorded pneumococcal 23-valent vaccine 07/15/2021 Recorded zoster vaccine, inactivated 02/16/2021 Recorded influenza virus vaccine, inactivated 12/29/2020 Recorded SARS-CoV-2 (COVID-19) mRNA-1273 vaccine 12/23/2020 Recorded influenza virus vaccine, inactivated 12/16/2020 Recorded SARS-CoV-2 (COVID-19) mRNA BNT-162b2 vax 12/16/2020 Recorded SARS-CoV-2 (COVID-19) mRNA-1273 vaccine 11/29/2020 Recorded SARS-CoV-2 (COVID-19) mRNA BNT-162b2 vax 05/06/2020 Recorded 2022-03-22: TPV65 SARS-CoV-2 (COVID-19) mRNA BNT-162b2 vax 04/14/2020 Recorded 2022-03-22: TPV70 SARS-CoV-2 (COVID-19) mRNA BNT-162b2 va (more content not included)... Normal [facility] Comment on above: Result Comment: Elec tronically Signed By: SIOBHAN KRAUSE PA-C\.br\Date and Time Signed: 08/24/22 16:16 EDT\.br\Electronically Co-Signed By: Mariam Parker\.br\Date and Time Co-Signed: 08/24/22 15:31 EDT BNPon 04-22-2022 Natriuretic peptide B (Bld) [Mass/Vol] 289.0 pg/mL Normal <=900.0 [facility] Comment on above: Performed By: #### B ZINC MINER, CMP, CMADM #### [facility] [address] [place] [address] Dr. Oliver Thornton CARDIAC STEPHANIA ADMITon 023 CK [Catalytic activity/Vol] 224 U/L Normal 39-308 [facility] Comment on above: Performed By: #### B ZINC MINER, CMP, CMADM #### [facility] [address] [address] [address] Oliver Thornton CK.MB [Mass/Vol] 12.03 ng/mL Critically high <=3.60 [facility] Comment on above: Performed By: #### B ZINC MINER, CMP, CMADM #### [facility] [address] [place] [address] Dr. Oliver Thornton HSTROP 8.3 pg/mL Normal 4.0-76.1 [facility] Comment on above: Result Comment: CUT- OFF POINTS HAVE BEEN ESTABLISHED BASED ON THE FOURTH UNIVERSAL DEFINITIONS OF MYOCARDIAL INFARCTION. THE UPPER REFERENCE LIMIT (URL) OF TROPONIN, DEFINED THE 99TH PERCENTILE OF cTnI DISTRIBUTION IN A REFERENCE POPULATION, HAS BEEN CONFIRMED THE DECISION THRESHOLD FOR DE DIAGNOSIS. Performed By: #### B ZINC MINER, CMP, CMADM #### [facility] [address] [place] [address] Dr. Oliver Thornton KARON 149 ng/mL Critically high 16-96 [facility] Comment on above: Performed By: #### B ZINC MINER, CMP, CMADM #### [facility] [address] [place] [address] Dr. Oliver Thornton CBC AUTO DIFFon 04-22-2022 BASO # 0.0 103/ul Normal 0.0-0.1 [facility] Comment on above: Performed By: #### C BC #### [facility] [address] [place] [address] Dr. Oliver Thornton Basophils/100 WBC (Bld) 0.3 % Normal 0.2-2.0 [facility] Comment on above: Performed By: #### C BC #### [facility] [address] [place] [address] Dr. Oliver Thornton EO # 0.3 103/ul Normal 0.0-0.7 [facility] Comment on above: Performed By: #### C BC #### [facility] [address] [place] [address] Dr. Oliver Thornton Eosinophils/100 WBC (Bld) 2.9 % Normal 0.9-7.0 [facility] Comment on above: Performed By: #### C BC #### [facility] [address] [place] [address] Dr. Oliver Thornton Erythrocyte distribution width (RBC) [Ratio] 12.5 % Normal 11.0-15.0 [facility] Comment on above: Performed By: #### C BC #### [facility] [address] [place] [address] Dr. Oliver Thornton Hematocrit (Bld) [Volume fraction] 45.5 % Normal 42.0-54.0 [facility] Comment on above: Performed By: #### C BC #### [facility] [address] [place] [address] Dr. Oliver Thornton Hemoglobin (Bld) [Mass/Vol] 14.9 g/dL Normal 14.0-18.0 [facility] Comment on above: Performed By: #### C BC #### [facility] [address] [place] [address] Dr. Oliver Thornton IG # 0.12 10e3/ul Critically high 0.00-0.03 [facility] Comment on above: Performed By: #### C BC #### [facility] [address] [place] [address] Dr. Oliver Thornton IG % 1.2 % Critically high 0.0-0.5 [facility] Comment on above: Performed By: #### C BC #### [facility] [address] [place] [id number] Dr. Oliver Thornton LYMPH # 2.9 103/ul Normal 1.2-3.8 [facility] Comment on above: Performed By: #### C BC #### [facility] [address] [place] [address] Dr. Oliver Thornton Lymphocytes/100 WBC (Bld) 27.7 % Normal 20.5-60.0 [facility] Comment on above: Performed By: #### C BC #### [facility] [address] [place] [address] Dr. Oliver Thornton MANUAL DIFF REQ NO Normal [facility] Comment on above: Performed By: #### C BC #### [facility] [address] [place] [address] Dr. Oliver Thornton MCH (RBC) [Entitic mass] 32.0 pg Normal 25.9-34.0 [facility] Comment on above: Performed By: #### C BC #### [facility] [address] [place] [address] Dr. Oliver Thornton MCHC (RBC) [Mass/Vol] 32.7 g/dL Normal 29.9-35.2 [facility] Comment on above: Performed By: #### C BC #### [facility] [address] [place] [address] Dr. Oliver Thornton MCV (RBC) [Entitic vol] 97.8 fL Critically high 80.0-94.0 [facility] Comment on above: Performed By: #### C BC #### [facility] [address] [place] [address] Dr. Oliver Thornton MONO # 0.9 103/ul Critically high 0.3-0.8 [facility] Comment on above: Performed By: #### C BC #### [facility] [address] [place] [address] Dr. Oliver Thornton Monocytes/100 WBC (Bld) 8.6 % Normal 1.7-12.0 [facility] Comment on above: Performed By: #### C BC #### [facility] [address] [place] [address] Dr. Oliver Thornton NEUT # 6.2 103/ul Normal 1.4-6.5 [facility] Comment on above: Performed By: #### C BC #### [facility] [address] [place] [address] Dr. Oliver Thornton Neutrophils/100 WBC (Bld) 59.3 % Normal 43.0-75.0 [facility] Comment on above: Performed By: #### C BC #### [facility] [address] [place] [address] Dr. Oliver Thornton Platelet mean volume (Bld) [Entitic vol] 10.2 fL Normal 9.5-13.5 [facility] Comment on above: Performed By: #### C BC #### [facility] [address] [place] [address] Dr. Oliver Thornton PLT 239 103/ul Normal 150-450 [facility] Comment on above: Performed By: #### C BC #### [facility] [address] [place] [address] Dr. Oliver Thornton RBC 4.65 106/ul Critically low 4.70-6.10 [facility] Comment on above: Performed By: #### C BC #### [facility] [address] [place] [address] Dr. Oliver Thornton WBC 10.4 103/ul Normal 4.0-11.0 [facility] Comment on above: Performed By: #### C BC #### [facility] [address] [place] [address] Dr. Oliver Thornton PROF 14(COMP METB)on 023 Albumin [Mass/Vol] 3.8 g/dL Normal 3.4-5.0 [facility] Comment on above: Performed By: #### B ZINC MINER, CMP, CMADM #### [facility] [address] [place] [address] Dr. Oliver Thornton Albumin/Globulin [Mass ratio] 1.2 {ratio} Normal [facility] Comment on above: Performed By: #### B ZINC MINER, CMP, CMADM #### [facility] [address] [place] [address] Dr. Oliver Thornton ALP [Catalytic activity/Vol] 91 U/L Normal 46-116 [facility] Comment on above: Performed By: #### B ZINC MINER, CMP, CMADM #### [facility] [address] [place] [address] Dr. Oliver Thornton ALT [Catalytic activity/Vol] 41 U/L Normal 16-63 [facility] Comment on above: Performed By: #### B ZINC MINER, CMP, CMADM #### [facility] [address] [place] [address] Dr. Oliver Thornton Anion gap [Moles/Vol] 8.3 mmol/L Normal [facility] Comment on above: Performed By: #### B ZINC MINER, CMP, CMADM #### [facility] [address] [place] [address] Dr. Oliver Thornton AST [Catalytic activity/Vol] 29 U/L Normal 15-37 [facility] Comment on above: Performed By: #### B ZINC MINER, CMP, CMADM #### [facility] [address] [place] [address] Dr. Oliver Thornton Bilirubin [Mass/Vol] 0.2 mg/dL Normal 0.2-1.0 [facility] Comment on above: Performed By: #### B ZINC MINER, CMP, CMADM #### [facility] [address] [place] [address] Dr. Oliver Thornton Calcium [Mass/Vol] 9.1 mg/dL Normal 8.5-10.1 [facility] Comment on above: Performed By: #### B ZINC MINER, CMP, CMADM #### [facility] [address] [place] [address] Dr. Oliver Thornton Chloride [Moles/Vol] 104 mmol/L Normal 98-107 [facility] Comment on above: Performed By: #### B ZINC MINER, CMP, CMADM #### [facility] [address] [place] [address] Dr. Oliver Thornton CO2 [Moles/Vol] 33.6 mmol/L Critically high 21.0-32.0 [facility] Comment on above: Performed By: #### B ZINC MINER, CMP, CMADM #### [facility] [address] [place] [address] Dr. Oliver Thornton Creatinine [Mass/Vol] 0.99 mg/dL Normal 0.70-1.30 [facility] Comment on above: Performed By: #### B ZINC MINER, CMP, CMADM #### [facility] [address] [place] [address] Dr. Oliver Thornton EGFR-AF FILIPINO >60 Normal >=60 [facility] Comment on above: Performed By: #### B ZINC MINER, CMP, CMADM #### [facility] [address] [address] [address] Oliver Thornton EGFR-NON AF FILIPINO >60 Normal >=60 [facility] Comment on above: Performed By: #### B ZINC MINER, CMP, CMADM #### [facility] [address] [address] [address] Oliver Thornton Globulin (S) [Mass/Vol] 3.1 g/dL Normal [facility] Comment on above: Performed By: #### B ZINC MINER, CMP, CMADM #### [facility] [address] [address] [address] Oliver Thornton Glucose [Mass/Vol] 111 mg/dL Critically high 74-106 [facility] Comment on above: Performed By: #### B ZINC MINER, CMP, CMADM #### [facility] [address] [place] [address] Dr. Oliver Thornton Potassium [Moles/Vol] 3.9 mmol/L Normal 3.5-5.1 [facility] Comment on above: Performed By: #### B ZINC MINER, CMP, CMADM #### [facility] [address] [address] [address] Oliver Thornton Protein [Mass/Vol] 6.9 g/dL Normal 6.4-8.2 [facility] Comment on above: Performed By: #### B ZINC MINER, CMP, CMADM #### [facility] [address] [address] [address] Oliver Thornton Sodium [Moles/Vol] 142 mmol/L Normal 136-145 [facility] Comment on above: Performed By: #### B ZINC MINER, CMP, CMADM #### [facility] [address] [address] [address] Oliver Thornton Urea nitrogen [Mass/Vol] 13.0 mg/dL Normal 7.0-18.0 [facility] Comment on above: Performed By: #### B ZINC MINER, CMP, CMADM #### [facility] [address] [address] [address] Oliver Thornton Urea nitrogen/Creatinin e [Mass ratio] 13.1 mg/mg Normal [facility] Comment on above: Performed By: #### B ZINC MINER, CMP, CMADM #### [facility] [id number] Oliver Thornton TROPONIN, HIGH SENSITIVITYon 04-22-2022 HSTROP 8.0 pg/mL Normal 4.0-76.1 [facility] Comment on above: Result Comment: CUT- OFF POINTS HAVE BEEN ESTABLISHED BASED ON THE FOURTH UNIVERSAL DEFINITIONS OF MYOCARDIAL INFARCTION. THE UPPER REFERENCE LIMIT (URL) OF TROPONIN, DEFINED THE 99TH PERCENTILE OF cTnI DISTRIBUTION IN A REFERENCE POPULATION, HAS BEEN CONFIRMED THE DECISION THRESHOLD FOR DE DIAGNOSIS. Performed By: #### H STROPN #### [facility] [id number] Oliver Thornton XR CHEST 1 Von 04-22-2022 XR CHEST 1 V EXAM: XR CHEST 1 V HISTORY: SHORTNESS OF BREATH COMPARISON: 12/30/2021 TECHNIQUE: Chest single view. FINDINGS: Lines/tubes/devices: EKG leads overlie the chest. No indwelling lines are seen. Cardiomediastinum: Cardiac silhouette appears normal in size. Unremarkable mediastinal silhouette. Vasculature: No increased pulmonary vasculature. Lungs/pleura: Lungs appear hyperinflated with interstitial coarsening, findings suggestive of COPD/emphysema. No consolidation, sizeable effusion, or visible pneumothorax. Bones/soft tissues: Bony thorax appears grossly intact as seen. Regional soft tissues unremarkable. IMPRESSION: Changes of COPD/emphysema suggested, without evidence of acute superimposed airspace disease. Electronically authenticated by: LETICIA MARTINEZ Date: 2022-04-22 00:48 Normal [facility] Lab Reportson 03-23-2022 Lab Reports [id number]: 127 Normal [facility] Screenson 03-23-2022 Screens [id number] [id number]: 127 Normal [facility] Patient Educationon 03-22-19 Patient Education Urology Benign Prostatic Hyperplasia Benign prostatic hyperplasia (BPH) is an enlarged prostate gland that is caused by the normal aging process and not by cancer. The prostate is a walnut-sized gland that is involved in the production of semen. It is located in front of the rectum and below the bladder. The bladder stores urine and the urethra is the tube that carries the urine out of the body. The prostate may get bigger as a man gets older. An enlarged prostate can press on the urethra. This can make it harder to pass urine. The build-up of urine in the bladder can cause infection. Back pressure and infection may progress to bladder damage and kidney (renal) failure. What are the causes? This condition is part of a normal aging process. However, not all men develop problems from this condition. If the prostate enlarges away from the urethra, urine flow will not be blocked. If it enlarges toward the urethra and compresses it, there will be problems passing urine. What increases the risk? This condition is more likely to develop in men over the age of 50 years. What are the signs or symptoms? Symptoms of this condition include: ? Getting up often during the night to urinate. ? Needing to urinate frequently during the day. ? Difficulty starting urine flow. ? Decrease in size and strength of your urine stream. ? Leaking (dribbling) after urinating. ? Inability to pass urine. This needs immediate treatment. ? Inability to completely empty your bladder. ? Pain when you pass urine. This is more common if there is also an infection. ? Urinary tract infection (UTI). How is this diagnosed? This condition is diagnosed based on your medical history, a physical exam, and your symptoms. Tests will also be done, such as: ? A post-void bladder scan. This measures any amount of urine that may remain in your bladder after you finish urinating. ? A digital rectal exam. In a rectal exam, your health care provider checks your prostate by putting a lubricated, gloved finger into your rectum to feel the back of your prostate gland. This exam detects the size of your gland and any abnormal lumps or growths. ? An exam of your urine (urinalysis). ? A prostate specific antigen (PSA) screening. This is a blood test used to screen for prostate cancer. ? An ultrasound. This test uses sound waves to electronically produce a picture of your prostate gland. Your health care provider may refer you to a specialist in kidney and prostate diseases (urologist). How is this treated? Once symptoms begin, your health care provider will monitor your condition (active surveillance or watchful waiting). Treatment for this condition will depend on the severity of your condition. Treatment may include: ? Observation and yearly exams. This may be the only treatment needed if your condition and symptoms are mild. ? Medicines to relieve your symptoms, including: ? Medicines to shrink the prostate. ? Medicines to relax the muscle of the prostate. ? Surgery in severe cases. Surgery may include: ? Prostatectomy. In this procedure, the prostate tissue is removed completely through an open incision or with a laparoscope or robotics. ? Transurethral resection of the prostate (TURP). In this procedure, a tool is inserted through the opening at the tip of the penis (urethra). It is used to cut away tissue of the inner core of the prostate. The pieces are removed through the same opening of the penis. This removes the blockage. ? Transurethral incision (TUIP). In this procedure, small cuts are made in the prostate. This lessens the prostate's pressure on the urethra. ? Transurethral microwave thermotherapy (TUMT). This procedure uses microwaves to create heat. The heat destroys and removes a small amount of prostate tissue. ? Transurethral needle ablation (TUNA). This procedure uses radio frequencies to destroy and remove a small amount of prostate tissue. ? Interstitial laser coagulation (ILC). This procedure uses a laser to destroy and remove a small amount of prostate tissue. ? Transurethral electrovaporization (TUVP). This procedure uses electrodes to destroy and remove a small amount of prostate tissue. ? Prostatic urethral lift. This procedure inserts an implant to push the lobes of the prostate away from the urethra. Follow these instructions at home: ? Take [id number]-hco-[id number] and prescription medicines only as told by your health care provider. ? Monitor your symptoms for any changes. Contact your health care provider with any changes. ? Avoid drinking large amounts of liquid before going to bed or out in public. ? Avoid or reduce how much caffeine or alcohol you drink. ? Give yourself time when you urinate. ? Keep all follow-up visits as told by your health care provider. This is important. Contact a health care provider if: ? You have unexplained back pain. ? Your symptoms do not get better with treatment. ? You d (more content not included)... Normal [facility] Urology Office/Clinic Noteon 01-17-2023 Urology Office/Clinic Note Chief Complaint 1yr PSA HPI Staff 1yr w/PSA due to elevated PSA. Additional DX: BPH *Tamsulosin 0.4mg BID therapy. PSA done 03/08/22- 4.58 IPSS 6Pt denies all urinary complaints at this time. History of Present Illness staff HPI reviewed and agree. Review of Systems PHQ Score Initial Depression Screen Score: 0 no fever, chills, malaise, myalgia. no rash/lesions. no chest pain, palpitations, or SOB. no abdominal pain, nausea, vomiting. no unilateral calf swelling, redness, pain Physical Exam Vitals & Measurements HR: 68(Peripheral) RR: 16 BP: 132/82 HT: 69 in HT: 175 cm WT: 90 kg WT: 198 lb BMI: 29.39 General: nontoxic, NAD Mouth: moist mucosa Lungs: normal respiratory effort Cardio: regular rate, good distal perfusion Abdomen: nondistended, no suprapubic distention or tenderness, no CVA tenderness Neurologic: Grossly normal Skin: No rashes or suspicious lesions ROXANE: benign. no discrete nodules, asymmetry, induration. Assessment/Plan UA completed in office today shows no microhematuria or signs of infection. 1. Elevated PSA (R97.20: Elevated prostate specific antigen [PSA]) PSA back up, but has been slightly higher previously. 03/08/22 - 4.Mar - 2.06 Dec 2019 - 3.May - 4.12 Mar 2017 - 2.95 I discussed the pros and cons of PSA with the patient today. The various causes of PSA elevation were outlined, including prostate cancer, prostate enlargement, infection of the prostate, inflammation without infection, as well as prostate manipulation. The options regarding this PSA elevation, including prostate biopsy versus close monitoring, versus obtaining an MRI of the prostate were discussed. The patient has decided upon close monitoring. Will repeat PSA f&t in 6 mos and call pt w results (assuming things improve). If they continue to rise, could consider Select MDX vs biopsy. (Pt has cardiac stent that he says is NOT compatible w MRI) f/u 1 yr w another PSA f&t. Ordered: E&M of Est. Patient Moderate 30-39 Min 32787 PSA Free & Total PSA Free & Total Urnls Dip Stick Auto w/o Microscopy POC [id number] 2. BPH with urinary obstruction (N40.1: Benign prostatic hyperplasia with lower urinary tract symptoms) Pt is taking tamsulosin BID and is highly satisfiedwith overall symptom control. Pt is experiencing noside effects. We discussed current dose and optional changes: decreasing tamsulosin to QD adding an additional agent such as finasteride/dutasteride I discussed with the patient the different surgical treatment options for bladder outlet obstruction including TURP, Rezum, and Urolift. The patient prefers to continue the BPH medications at this time. Pt prefers to continue current regimen with no changes at this time. Ordered: E&M of Est. Patient Moderate 30-39 Min [id number] Orders: tamsulosin, 0.4 mg = 1 cap(s), Oral, BID, X 90 day(s), # 180 cap(s), Refills(s) 3, Pharmacy: [facility]/pharmacy #[id number], 175, cm, 03/22/22 14:18:00 EST, Height/Length Dosing, 90, kg, 03/22/22 14:18:00 EST, Weight Dosing Follow-up With When Contact Information SIOBHAN KRAUSE PA-C, URL Within 1 year Additional Instructions: Patient Education Benign Prostatic Hyperplasia Problem List/Past Medical History Ongoing Asthma BPH with urinary obstruction Depression Elevated PSA Enlarged prostate with urinary obstruction Impotence Myocardial infarction Nocturia Post-void dribbling Sleep apnea Smoker Tremor Historical No qualifying data Procedure/Surgical History Carotid endarterectomy (12/22/2018), Cystoscopy (09/28/2012), Eye surgery, Hand Surgery, Nose Surgery, Repair of inguinal hernia. Medications levothyroxine 125 mcg (0.125 mg) Tab metoprolol 50 mg ER Tab, 50 mg= 1 tab(s), Oral, Daily predniSONE 5 mg Tab simvastatin 40 mg Tab, 40 mg= 1 tab(s), Oral, Daily Symbicort tamsulosin 0.4 mg Cap, 0.4 mg= 1 cap(s), Oral, BID, 3 refills Allergies No Known Allergies Social History Alcohol - Denies Alcohol Use, 12/18/2018 Tobacco - Low Risk, 01/22/2019 Former smoker, quit more than 30 days ago Tobacco Use:. Cigarettes, 03/22/2022 Family History BPH - benign prostatic hyperplasia: Father. Immunizations Vaccine Date Status Comments zoster vaccine, inactivated 01/11/2022 Recorded influenza virus vaccine, inactivated 01/11/2022 Recorded pneumococcal 23-valent vaccine 07/15/2021 Recorded zoster vaccine, inactivated 02/16/2021 Recorded influenza virus vaccine, inactivated 12/29/2020 Recorded SARS-CoV-2 (COVID-19) mRNA-1273 vaccine 12/23/2020 Recorded influenza virus vaccine, inactivated 12/16/2020 Recorded SARS-CoV-2 (COVID-19) mRNA BNT-162b2 vax 12/16/2020 Recorded SARS-CoV-2 (COVID-19) mRNA-1273 vaccine 11/29/2020 Recorded SARS-CoV-2 (COVID-19) mRNA BNT-162b2 vax 05/06/2020 Recorded 2022-03-22: [id number] SARS-CoV-2 (COVID-19) mRNA BNT-162b2 vax 04/14/2020 Recorded 2022-03-22: [id number] SARS-CoV-2 (COVID-19) mRNA BNT-162b2 vax 2020 Recorded Pt states he (more content not included)... Normal [facility] Comment on above: Result Comment: Elec tronically Signed By: JIMI GARCIA, SIOBHAN Bullock\.br\Date and Time Signed: 03/22/22 14:51 EST BNPon 12-30-2021 Natriuretic peptide B (Bld) [Mass/Vol] 514.0 pg/mL Normal <=900.0 [facility] Comment on above: Performed By: #### B ZINC MINER, CMP #### [facility] [address] [place] [address] Dr. Oliver Thornton CBC AUTO DIFFon 12-30-2021 BASO # 0.0 103/ul Normal 0.0-0.1 [facility] Comment on above: Performed By: #### B ZINC MINER, CMP #### [facility] [address] [place] [address] Dr. Oliver Thornton Basophils/100 WBC (Bld) 0.2 % Normal 0.2-2.0 [facility] Comment on above: Performed By: #### B ZINC MINER, CMP #### [facility] [address] [address] [address] Oliver Thornton EO # 0.1 103/ul Normal 0.0-0.7 [facility] Comment on above: Performed By: #### B ZINC MINER, CMP #### [facility] [address] [place] [address] Dr. Oliver Thornton Eosinophils/100 WBC (Bld) 1.2 % Normal 0.9-7.0 [facility] Comment on above: Performed By: #### B ZINC MINER, CMP #### [facility] [address] [place] [address] Dr. Oliver Thornton Erythrocyte distribution width (RBC) [Ratio] 12.6 % Normal 11.0-15.0 [facility] Comment on above: Performed By: #### B ZINC MINER, CMP #### [facility] [address] [place] [address] Dr. Oliver Thornton Hematocrit (Bld) [Volume fraction] 45.2 % Normal 42.0-54.0 [facility] Comment on above: Performed By: #### B ZINC MINER, CMP #### [facility] [address] [place] [address] Dr. Oliver Thornton Hemoglobin (Bld) [Mass/Vol] 14.9 g/dL Normal 14.0-18.0 [facility] Comment on above: Performed By: #### B ZINC MINER, CMP #### [facility] [address] [place] [address] Dr. Oliver Thornton IG # 0.06 10e3/ul Critically high 0.00-0.03 [facility] Comment on above: Performed By: #### B ZINC MINER, CMP #### [facility] [address] [place] [address] Dr. Oliver Thornton IG % 0.6 % Critically high 0.0-0.5 [facility] Comment on above: Performed By: #### B ZINC MINER, CMP #### [facility] [address] [place] [address] Dr. Oliver Thornton LYMPH # 1.5 103/ul Normal 1.2-3.8 [facility] Comment on above: Performed By: #### B ZINC MINER, CMP #### [facility] [address] [place] [address] Dr. Oliver Thornton Lymphocytes/100 WBC (Bld) 15.7 % Critically low 20.5-60.0 [facility] Comment on above: Performed By: #### B ZINC MINER, CMP #### [facility] [address] [place] [address] Dr. Oliver Thornton MANUAL DIFF REQ NO Normal [facility] Comment on above: Performed By: #### B ZINC MINER, CMP #### [facility] [address] [place] [address] Dr. Oliver Thornton MCH (RBC) [Entitic mass] 32.0 pg Normal 25.9-34.0 [facility] Comment on above: Performed By: #### B ZINC MINER, CMP #### [facility] [address] [place] [address] Dr. Oliver Thornton MCHC (RBC) [Mass/Vol] 33.0 g/dL Normal 29.9-35.2 The [facility] Comment on above: Performed By: #### B ZINC MINER, CMP #### [facility] [address] [place] [address] Dr. Oliver Thornton MCV (RBC) [Entitic vol] 97.0 fL Critically high 80.0-94.0 [facility] Comment on above: Performed By: #### B ZINC MINER, CMP #### [facility] [address] [place] [address] Dr. Oliver Thornton MONO # 0.7 103/ul Normal 0.3-0.8 [facility] Comment on above: Performed By: #### B ZINC MINER, CMP #### [facility] [address] [place] [address] Dr. Olvier Thornton Monocytes/100 WBC (Bld) 6.6 % Normal 1.7-12.0 [facility] Comment on above: Performed By: #### B ZINC MINER, CMP #### [facility] [address] [place] [address] Dr. Oliver Thornton NEUT # 7.4 103/ul Critically high 1.4-6.5 [facility] Comment on above: Performed By: #### B ZINC MINER, CMP #### [facility] [address] [address] [address] Oliver Thornton Neutrophils/100 WBC (Bld) 75.7 % Critically high 43.0-75.0 [facility] Comment on above: Performed By: #### B ZINC MINER, CMP #### [facility] [address] [address] [address] Oliver Thornton Platelet mean volume (Bld) [Entitic vol] 9.8 fL Normal 9.5-13.5 [facility] Comment on above: Performed By: #### B ZINC MINER, CMP #### [facility] [address] [address] [address] Oliver Thornton PLT 209 103/ul Normal 150-450 [facility] Comment on above: Performed By: #### B ZINC MINER, CMP #### [facility] [address] [place] [address] Dr. Oliver Thornton RBC 4.66 106/ul Critically low 4.70-6.10 [facility] Comment on above: Performed By: #### B ZINC MINER, CMP #### [facility] [address] [address] [address] Oliver Thornton WBC 9.8 103/ul Normal 4.0-11.0 [facility] Comment on above: Performed By: #### B ZINC MINER, CMP #### [facility] [address] [address] [address] Oliver Thornton Covid-19 PCR ([facility])on 12-05 SARS-CoV-2 (COVID-19) RNA REGULO+probe Ql (Unsp spec) Not detected Normal NOT DETECTED [facility] Comment on above: Result Comment: When diagnostic testing is negative, the possibility of a false negative should be considered in the context of a patient's recent exposures and the presence of clinical signs and symptoms consistent with SARS-CoV-2. This test is not yet approved or cleared by the [place] FDA. When there are no FDA-approved or cleared tests available, and other criteria are met, FDA can make tests available under an emergency access mechanism called an Emergency Use Authorization (EUA). The EUA for this test is supported by the Drawing Tracer of Health and Human Service's declaration that circumstances exist to justify the emergency use of in vitro diagnostics for the detection and/or diagnosis of the virus that causes COVID-19. This EUA will remain in effect for the duration of the COVID-19 declaration justifying emergency of IVDs, unless it is terminated or revoked by the FDA (after which the test may no longer be used). Performed By: #### C VDTB #### [facility] [address] [place] [address] Dr. Oliver Thornton PROF 14(COMP METB)on 022 Albumin [Mass/Vol] 3.7 g/dL Normal 3.4-5.0 [facility] Comment on above: Performed By: #### B ZINC MINER, CMP #### [facility] [address] [place] [address] Dr. Oliver Thornton Albumin/Globulin [Mass ratio] 1.2 {ratio} Normal [facility] Comment on above: Performed By: #### B ZINC MINER, CMP #### [facility] [address] [place] [address] Dr. Oliver Thornton ALP [Catalytic activity/Vol] 78 U/L Normal 46-116 [facility] Comment on above: Performed By: #### B ZINC MINER, CMP #### [facility] [address] [place] [address] Dr. Oliver Thornton ALT [Catalytic activity/Vol] 38 U/L Normal 16-63 [facility] Comment on above: Performed By: #### B ZINC MINER, CMP #### [facility] [address] [place] [address] Dr. Oliver Thornton Anion gap [Moles/Vol] 8.0 mmol/L Normal [facility] Comment on above: Performed By: #### B ZINC MINER, CMP #### [facility] [address] [place] [address] Dr. Oliver Thornton AST [Catalytic activity/Vol] 29 U/L Normal 15-37 [facility] Comment on above: Performed By: #### B ZINC MINER, CMP #### [facility] [address] [place] [address] Dr. Oliver Thornton Bilirubin [Mass/Vol] 0.3 mg/dL Normal 0.2-1.0 [facility] Comment on above: Performed By: #### B ZINC MINER, CMP #### [facility] [address] [place] [address] Dr. Oliver Thornton Calcium [Mass/Vol] 8.7 mg/dL Normal 8.5-10.1 [facility] Comment on above: Performed By: #### B ZINC MINER, CMP #### [facility] [address] [place] [address] Dr. Oliver Thornton Chloride [Moles/Vol] 103 mmol/L Normal 98-107 [facility] Comment on above: Performed By: #### B ZINC MINER, CMP #### [facility] [address] [place] [address] Dr. Oliver Thornton CO2 [Moles/Vol] 32.1 mmol/L Critically high 21.0-32.0 [facility] Comment on above: Performed By: #### B ZINC MINER, CMP #### [facility] [address] [place] [address] Dr. Oliver Thornton Creatinine [Mass/Vol] 0.75 mg/dL Normal 0.70-1.30 [facility] Comment on above: Performed By: #### B ZINC MINER, CMP #### [facility] [address] [place] [address] Dr. Oliver Thornotn EGFR-AF FILIPINO >60 Normal >=60 [facility] Comment on above: Performed By: #### B ZINC MINER, CMP #### [facility] [address] [place] [address] Dr. Oliver Thornton EGFR-NON AF FILIPINO >60 Normal >=60 [facility] Comment on above: Performed By: #### B ZINC MINER, CMP #### [facility] [address] [place] [address] Dr. Oliver Thornton Globulin (S) [Mass/Vol] 3.1 g/dL Normal [facility] Comment on above: Performed By: #### B ZINC MINER, CMP #### [facility] [address] [place] [address] Dr. Oliver Thornton Glucose [Mass/Vol] 101 mg/dL Normal 74-106 [facility] Comment on above: Performed By: #### B ZINC MINER, CMP #### [facility] [address] [place] [address] Dr. Oliver Thornton Potassium [Moles/Vol] 4.1 mmol/L Normal 3.5-5.1 [facility] Comment on above: Performed By: #### B ZINC MINER, CMP #### [facility] [address] [place] [address] Dr. Oliver Thornton Protein [Mass/Vol] 6.8 g/dL Normal 6.4-8.2 [facility] Comment on above: Performed By: #### B ZINC MINER, CMP #### [facility] [address] [place] [address] Dr. Oliver Thornton Sodium [Moles/Vol] 139 mmol/L Normal 136-145 [facility] Comment on above: Performed By: #### B ZINC MINER, CMP #### [facility] [address] [place] [address] Dr. Oliver Thornton Urea nitrogen [Mass/Vol] 9.0 mg/dL Normal 7.0-18.0 [facility] Comment on above: Performed By: #### B ZINC MINER, CMP #### [facility] [address] [place] [address] Dr. Oliver Thornton Urea nitrogen/Creatinin e [Mass ratio] 12.0 mg/mg Normal [facility] Comment on above: Performed By: #### B ZINC MINER, CMP #### [facility] [address] [place] [address] Dr. Oliver Thornton TROPONIN, HIGH SENSITIVITYon 12-30-2021 HSTROP 16.4 pg/mL Normal 4.0-76.1 [facility] Comment on above: Result Comment: CUT- OFF POINTS HAVE BEEN ESTABLISHED BASED ON THE FOURTH UNIVERSAL DEFINITIONS OF MYOCARDIAL INFARCTION. THE UPPER REFERENCE LIMIT (URL) OF TROPONIN, DEFINED THE 99TH PERCENTILE OF cTnI DISTRIBUTION IN A REFERENCE POPULATION, HAS BEEN CONFIRMED THE DECISION THRESHOLD FOR DE DIAGNOSIS. Performed By: #### B ZINC MINER, CMP #### [facility] [address] [place] [address] Dr. Oliver Thornton HSTROP 14.9 pg/mL Normal 4.0-76.1 [facility] Comment on above: Result Comment: CUT- OFF POINTS HAVE BEEN ESTABLISHED BASED ON THE FOURTH UNIVERSAL DEFINITIONS OF MYOCARDIAL INFARCTION. THE UPPER REFERENCE LIMIT (URL) OF TROPONIN, DEFINED THE 99TH PERCENTILE OF cTnI DISTRIBUTION IN A REFERENCE POPULATION, HAS BEEN CONFIRMED THE DECISION THRESHOLD FOR DE DIAGNOSIS. Performed By: #### B ZINC MINER, CMP #### [facility] [id number] Oliver Thornton XR CHEST 1 Von 12-30-2021 XR CHEST 1 V EXAMINATION: XR CHES T 1 V HISTORY: SHORTNESS OF BREATH COMPARISON: XR chest 08/15/2021 FINDINGS: LUNGS: No significant pulmonary parenchymal abnormalities. VASCULATURE: No increased pulmonary vasculature. PLEURA: No pneumothorax, effusion, or pleural thickening. CARDIAC: No cardiomegaly or cardiac silhouette abnormality. MEDIASTINUM: No visible mass or adenopathy. BONES: No fracture or visible bone lesion. OTHER: Negative. IMPRESSION: 1. Slightly hyperexpanded lungs. No acute cardiopulmonary process. Stable chest. Electronically authenticated by: HUGO DELEON Date: 2021-12-30 13:30 Normal [facility] XR Chest 2 Views*on 10-23-19 22 XR Chest 2 Views* FINDINGS: Comparison made with prior examination of August 04, 2021. No change. Persistent indistinctness of the right cardiophrenic angle, hemidiaphragm dome with underlying hyper-epxanded COPD. No acute cardiac or pulmonary disease is identified. No worrisome mass lesions or infiltrates are seen. No pulmonary edema or pneumothorax is present. Cardiac silhouette size is normal IMPRESSION: 1. Stable, chronic COPD changes. 2. No pulmonary edema or localizing infiltrates. COMMENT: Low dose chest CT imaging would be of assistance if the patient has a significant pack year smoking history. Report reported and signed by Austen Maria on 10/22/2021 1447 Normal [facility] Closing Coordinator BNPon 08-15-2021 Natriuretic peptide B (Bld) [Mass/Vol] 148.0 pg/mL Normal <=900.0 [facility] Comment on above: Performed By: #### B ZINC MINER, CMP #### [facility] [address] [place] [address] Dr. Oliver Thornton CBC AUTO DIFFon 08-15-2021 BASO # 0.1 103/ul Normal 0.0-0.1 [facility] Comment on above: Performed By: #### B ZINC MINER, CMP #### [facility] [address] [place] [address] Dr. Oliver Thornton Basophils/100 WBC (Bld) 0.7 % Normal 0.2-2.0 [facility] Comment on above: Performed By: #### B ZINC MINER, CMP #### [facility] [address] [place] [address] Dr. Oliver Thornton EO # 0.3 103/ul Normal 0.0-0.7 [facility] Comment on above: Performed By: #### B ZINC MINER, CMP #### [facility] [address] [place] [address] Dr. Oliver Thornton Eosinophils/100 WBC (Bld) 1.6 % Normal 0.9-7.0 [facility] Comment on above: Performed By: #### B ZINC MINER, CMP #### [facility] [address] [place] [address] Dr. Oliver Thornton Erythrocyte distribution width (RBC) [Ratio] 12.5 % Normal 11.0-15.0 [facility] Comment on above: Performed By: #### B ZINC MINER, CMP #### [facility] [address] [place] [address] Dr. Oliver Thornton Hematocrit (Bld) [Volume fraction] 48.0 % Normal 42.0-54.0 [facility] Comment on above: Performed By: #### B ZINC MINER, CMP #### [facility] [address] [place] [address] Dr. Oliver Thornton Hemoglobin (Bld) [Mass/Vol] 15.6 g/dL Normal 14.0-18.0 [facility] Comment on above: Performed By: #### B ZINC MINER, CMP #### [facility] [address] [place] [address] Dr. Oliver Thornton IG # 0.80 10e3/ul Critically high 0.00-0.03 [facility] Comment on above: Performed By: #### B ZINC MINER, CMP #### [facility] [address] [address] [address] Oliver Thornton IG % 4.8 % Critically high 0.0-0.5 [facility] Comment on above: Performed By: #### B ZINC MINER, CMP #### [facility] [address] [address] [address] Oliver Thornton LYMPH # 2.2 103/ul Normal 1.2-3.8 [facility] Comment on above: Performed By: #### B ZINC MINER, CMP #### [facility] [address] [address] [address] Oliver Thornton Lymphocytes/100 WBC (Bld) 13.2 % Critically low 20.5-60.0 [facility] Comment on above: Performed By: #### B ZINC MINER, CMP #### [facility] [address] [address] [address] Oliver Thornton MANUAL DIFF REQ NO Normal [facility] Comment on above: Performed By: #### B ZINC MINER, CMP #### [facility] [address] [address] [address] Oliver Thornton MCH (RBC) [Entitic mass] 32.0 pg Normal 25.9-34.0 [facility] Comment on above: Performed By: #### B ZINC MINER, CMP #### [facility] [address] [address] [address] Oliver Thornton MCHC (RBC) [Mass/Vol] 32.5 g/dL Normal 29.9-35.2 [facility] Comment on above: Performed By: #### B ZINC MINER, CMP #### [facility] [address] [address] [address] Oliver Thornton MCV (RBC) [Entitic vol] 98.4 fL Critically high 80.0-94.0 [facility] Comment on above: Performed By: #### B ZINC MINER, CMP #### [facility] [address] [address] [address] Oliver Thornton MONO # 1.1 103/ul Critically high 0.3-0.8 [facility] Comment on above: Performed By: #### B ZINC MINER, CMP #### [facility] [address] [place] [address] Dr. Oliver Thornton Monocytes/100 WBC (Bld) 6.6 % Normal 1.7-12.0 [facility] Comment on above: Performed By: #### B ZINC MINER, CMP #### [facility] [address] [place] [address] Dr. Oliver Thornton NEUT # 12.1 103/ul Critically high 1.4-6.5 [facility] Comment on above: Performed By: #### B ZINC MINER, CMP #### [facility] [address] [place] [address] Dr. Oliver Thornton Neutrophils/100 WBC (Bld) 73.1 % Normal 43.0-75.0 [facility] Comment on above: Performed By: #### B ZINC MINER, CMP #### [facility] [address] [place] [address] Dr. Oliver Thornton Platelet mean volume (Bld) [Entitic vol] 9.9 fL Normal 9.5-13.5 [facility] Comment on above: Performed By: #### B ZINC MINER, CMP #### [facility] [address] [place] [address] Dr. Oliver Thornton PLT 229 103/ul Normal 150-450 [facility] Comment on above: Performed By: #### B ZINC MINER, CMP #### [facility] [address] [place] [address] Dr. Oliver Thornton RBC 4.88 106/ul Normal 4.70-6.10 [facility] Comment on above: Performed By: #### B ZINC MINER, CMP #### [facility] [address] [place] [address] Dr. Oliver Thornton WBC 16.5 103/ul Critically high 4.0-11.0 [facility] Comment on above: Performed By: #### B ZINC MINER, CMP #### [facility] [address] [place] [address] Dr. Oliver Thornton PROF 14(COMP METB)on 022 Albumin [Mass/Vol] 3.4 g/dL Normal 3.4-5.0 [facility] Comment on above: Performed By: #### B ZINC MINER, CMP #### [facility] [address] [place] [address] Dr. Oliver Thornton Albumin/Globulin [Mass ratio] 1.1 {ratio} Normal [facility] Comment on above: Performed By: #### B ZINC MINER, CMP #### [facility] [address] [place] [address] Dr. Oliver Thornton ALP [Catalytic activity/Vol] 100 U/L Normal 46-116 [facility] Comment on above: Performed By: #### B ZINC MINER, CMP #### [facility] [address] [place] [address] Dr. Oliver Thornton ALT [Catalytic activity/Vol] 58 U/L Normal 16-63 [facility] Comment on above: Performed By: #### B ZINC MINER, CMP #### [facility] [address] [place] [address] Dr. Oliver Thornton Anion gap [Moles/Vol] 8.8 mmol/L Normal [facility] Comment on above: Performed By: #### B ZINC MINER, CMP #### [facility] [address] [place] [address] Dr. Oliver Thornton AST [Catalytic activity/Vol] 25 U/L Normal 15-37 [facility] Comment on above: Performed By: #### B ZINC MINER, CMP #### [facility] [address] [place] [address] Dr. Oliver Thornton Bilirubin [Mass/Vol] 0.6 mg/dL Normal 0.2-1.0 [facility] Comment on above: Performed By: #### B ZINC MINER, CMP #### [facility] [address] [place] [address] Dr. Oliver Thornton Calcium [Mass/Vol] 8.6 mg/dL Normal 8.5-10.1 [facility] Comment on above: Performed By: #### B ZINC MINER, CMP #### [facility] [address] [place] [address] Dr. Oliver Thornton Chloride [Moles/Vol] 101 mmol/L Normal 98-107 [facility] Comment on above: Performed By: #### B ZINC MINER, CMP #### [facility] [address] [place] [address] Dr. Oliver Thornton CO2 [Moles/Vol] 32.4 mmol/L Critically high 21.0-32.0 [facility] Comment on above: Performed By: #### B ZINC MINER, CMP #### [facility] [address] [place] [address] Dr. Oliver Thornton Creatinine [Mass/Vol] 0.89 mg/dL Normal 0.70-1.30 [facility] Comment on above: Performed By: #### B ZINC MINER, CMP #### [facility] [address] [place] [address] Dr. Oliver Thornton EGFR-AF FILIPINO >60 Normal >=60 [facility] Comment on above: Performed By: #### B ZINC MINER, CMP #### [facility] [address] [place] [address] Dr. Oliver Thornton EGFR-NON AF FILIPINO >60 Normal >=60 [facility] Comment on above: Performed By: #### B ZINC MINER, CMP #### [facility] [address] [place] [address] Dr. Oliver Thornton Globulin (S) [Mass/Vol] 3.1 g/dL Normal [facility] Comment on above: Performed By: #### B ZINC MINER, CMP #### [facility] [address] [place] [address] Dr. Oliver Thornton Glucose [Mass/Vol] 126 mg/dL Critically high 74-106 [facility] Comment on above: Performed By: #### B ZINC MINER, CMP #### [facility] [address] [place] [address] Dr. Oliver Thornton Potassium [Moles/Vol] 4.2 mmol/L Normal 3.5-5.1 [facility] Comment on above: Performed By: #### B ZINC MINER, CMP #### [facility] [address] [place] [address] Dr. Oliver Thornton Protein [Mass/Vol] 6.5 g/dL Normal 6.4-8.2 [facility] Comment on above: Performed By: #### B ZINC MINER, CMP #### [facility] [address] [place] [address] Dr. Oliver Thornton Sodium [Moles/Vol] 138 mmol/L Normal 136-145 [facility] Comment on above: Performed By: #### B ZINC MINER, CMP #### [facility] [address] [place] [address] Dr. Oliver Thornton Urea nitrogen [Mass/Vol] 18.0 mg/dL Normal 7.0-18.0 [facility] Comment on above: Performed By: #### B ZINC MINER, CMP #### [facility] [address] [place] [address] Dr. Oliver Thornton Urea nitrogen/Creatinin e [Mass ratio] 20.2 mg/mg Normal [facility] Comment on above: Performed By: #### B ZINC MINER, CMP #### [facility] [address] [place] [address] Dr. Oliver Thornton PROTIMEon 08-15-2021 INR Coag (PPP) [Relative time] 0.94 {INR} Normal [facility] Comment on above: Performed By: #### B ZINC MINER, CMP #### [facility] [address] [place] [address] Dr. Oliver Thornton INR GUIDELINES SEE BELOW Normal [facility] Comment on above: Result Comment: LEILANI RED INR: 2.0 - 3.0 CONDITIONS NOT LISTED BELOW 2.5 - 3.5 FOR PROSTHETIC HEART VALVE REPLACEMENT 2.5 - 3.5 RECURRENT THROMBOSIS Performed By: #### B ZINC MINER, CMP #### [facility] [address] [place] [address] Dr. Oliver Thornton PT Coag (PPP) [Time] 10.2 s Normal 9.0-11.6 [facility] Comment on above: Performed By: #### B ZINC MINER, CMP #### [facility] [address] [place] [address] Dr. Oliver Thornton PTTon 08-15-2021 aPTT Coag (Bld) [Time] 24.3 s Normal 22.3-36.2 [facility] Comment on above: Performed By: #### B ZINC MINER, CMP #### [facility] [address] [place] [address] Dr. Oliver Thornton TROPONIN, HIGH SENSITIVITYon 08-15-2021 HSTROP 16.6 pg/mL Normal 4.0-76.1 [facility] Comment on above: Result Comment: CUT- OFF POINTS HAVE BEEN ESTABLISHED BASED ON THE FOURTH UNIVERSAL DEFINITIONS OF MYOCARDIAL INFARCTION. THE UPPER REFERENCE LIMIT (URL) OF TROPONIN, DEFINED THE 99TH PERCENTILE OF cTnI DISTRIBUTION IN A REFERENCE POPULATION, HAS BEEN CONFIRMED THE DECISION THRESHOLD FOR DE DIAGNOSIS. Performed By: #### H STROPN #### [facility] [address] [address] [address] Oliver Thornton HSTROP 14.8 pg/mL Normal 4.0-76.1 [facility] Comment on above: Result Comment: CUT- OFF POINTS HAVE BEEN ESTABLISHED BASED ON THE FOURTH UNIVERSAL DEFINITIONS OF MYOCARDIAL INFARCTION. THE UPPER REFERENCE LIMIT (URL) OF TROPONIN, DEFINED THE 99TH PERCENTILE OF cTnI DISTRIBUTION IN A REFERENCE POPULATION, HAS BEEN CONFIRMED THE DECISION THRESHOLD FOR DE DIAGNOSIS. Performed By: #### B ZINC MINER, CMP #### [facility] [id number] Oliver Thornton XR CHEST 1 Von 08-15-2021 XR CHEST 1 V EXAMINATION: XR CHES T 1 V, , 08/15/2021 1:40 PM EDT INDICATION: CHEST PAIN, UNSPECIFIED HISTORY: Ordering Provider Reason for Exam: Technologist Note: Additional: COMPARISON: Chest x-ray of 04/06/2021. TECHNIQUE: Chest x-ray: One view. FINDINGS: No pneumothorax, pleural effusion or focal airspace consolidation. Heart is normal in size. Bony thorax is unremarkable. IMPRESSION: No acute cardiopulmonary process. Electronically authenticated by: MARCELLA HENDERSON Date: 2021-08-15 15:03 Normal [facility] XR Chest 2 Views*on 08-05-19 22 XR Chest 2 Views* FINDINGS: Comparison made with prior examination of May 11, 2018. No change. Lung volumes are slightly increased consistent with early COPD changes. No focal infiltrates, nodules or suspicious mass lesions are seen. Cardiac silhouette and skeletal structure are unremarkable. IMPRESSION: 1. COPD, stable appearance 2. No acute disease Report reported and signed by Austen Maria on 08/05/2021 0653 Normal [facility] Complete Blood Counton 07-15 Erythrocyte distribution width (RBC) [Ratio] 12.3 % Normal 11.0-15.0 [facility] Comment on above: Performed By: #### F T4, VITD, TSH reflex FT4, LIPD, CBC, CMP #### [facility] [address], [place] [id number] Hematocrit (Bld) [Volume fraction] 47.3 % Normal 38.5-50.0 [facility] Comment on above: Performed By: #### F T4, VITD, TSH reflex FT4, LIPD, CBC, CMP #### [facility] [address], [place] [id number] Hemoglobin (Bld) [Mass/Vol] 15.5 g/dL Normal 13.0-17.1 [facility] Comment on above: Performed By: #### F T4, VITD, TSH reflex FT4, LIPD, CBC, CMP #### [facility] [address], [place] [id number] MCH (RBC) [Entitic mass] 32.2 pg Normal 27.0-33.0 [facility] Comment on above: Performed By: #### F T4, VITD, TSH reflex FT4, LIPD, CBC, CMP #### [facility] [address], [place] [id number] MCHC (RBC) [Mass/Vol] 32.8 g/dL Normal 32.0-36.0 [facility] Comment on above: Performed By: #### F T4, VITD, TSH reflex FT4, LIPD, CBC, CMP #### [facility] [address], [place] [id number] MCV (RBC) [Entitic vol] 98 fL Normal 80-100 [facility] Comment on above: Performed By: #### F T4, VITD, TSH reflex FT4, LIPD, CBC, CMP #### [facility] [address] [place], [place] [id number] Platelet mean volume (Bld) [Entitic vol] 11.00 fL Normal 7.50-12.50 [facility] Comment on above: Performed By: #### F T4, VITD, TSH reflex FT4, LIPD, CBC, CMP #### [facility] [address], [place] [id number] Platelets (Bld) [#/Vol] 243 10*3/uL Normal 140-400 [facility] Comment on above: Performed By: #### F T4, VITD, TSH reflex FT4, LIPD, CBC, CMP #### [facility] [address], [place] [id number] RBC (Bld) [#/Vol] 4.82 10*6/uL Normal 4.20-5.80 [facility] Comment on above: Performed By: #### F T4, VITD, TSH reflex FT4, LIPD, CBC, CMP #### [facility] [address], [place] [id number] RDW-SD 44.6 fL Normal 37.0-50.0 [facility] Comment on above: Performed By: #### F T4, VITD, TSH reflex FT4, LIPD, CBC, CMP #### [facility] [address], [place] [id number] WBC (Bld) [#/Vol] 10.4 10*3/uL Normal 3.8-11.0 [facility] Comment on above: Performed By: #### F T4, VITD, TSH reflex FT4, LIPD, CBC, CMP #### [facility] [address] [place], [place] [id number] Comprehensive Metabolic Pane [facility] 07-15-2021 Albumin [Mass/Vol] 4.7 g/dL Normal 3.6-5.[address] [facility] Comment on above: Performed By: #### F T4, VITD, TSH reflex FT4, LIPD, CBC, CMP #### [facility] [address] [place], [place] [id number] Albumin/Globulin [Mass ratio] 2.2 {ratio} Normal 1.0-2.5 [facility] Comment on above: Performed By: #### F T4, VITD, TSH reflex FT4, LIPD, CBC, CMP #### [facility] [address] [place], [place] [id number] ALP [Catalytic activity/Vol] 91 U/L Normal 40-129 [facility] Comment on above: Performed By: #### F T4, VITD, TSH reflex FT4, LIPD, CBC, CMP #### [facility] [address] [place], [place] [id number] ALT [Catalytic activity/Vol] 36 U/L Normal 9-46 [facility] Comment on above: Result Comment: 02/03 Female reference range changed. Performed By: #### F T4, VITD, TSH reflex FT4, LIPD, CBC, CMP #### [facility] [address] [place], [place] [id number] Anion gap [Moles/Vol] 16 mmol/L Normal 12-20 [facility] Comment on above: Result Comment: Effe ctive 03/11/2019 reference range changed. Performed By: #### F T4, VITD, TSH reflex FT4, LIPD, CBC, CMP #### [facility] [address], [place] [id number] AST [Catalytic activity/Vol] 37 U/L Normal 10-40 [facility] Comment on above: Performed By: #### F T4, VITD, TSH reflex FT4, LIPD, CBC, CMP #### [facility] [address] [place], [place] [id number] Bilirubin [Mass/Vol] 0.33 mg/dL Normal 0.30-1.20 [facility] Comment on above: Performed By: #### F T4, VITD, TSH reflex FT4, LIPD, CBC, CMP #### [facility] [address] [place], [place] [id number] BUN/CREA 22 Ratio Normal 6-22 [facility] Comment on above: Performed By: #### F T4, VITD, TSH reflex FT4, LIPD, CBC, CMP #### [facility] [address] [place], [place] [id number] Calcium [Mass/Vol] 9.7 mg/dL Normal 8.6-10.[address] [facility] Comment on above: Performed By: #### F T4, VITD, TSH reflex FT4, LIPD, CBC, CMP #### [facility] [address] [place], [place] [id number] Chloride [Moles/Vol] 102 mmol/L Normal 98-107 [facility] Comment on above: Performed By: #### F T4, VITD, TSH reflex FT4, LIPD, CBC, CMP #### [facility] [address] [place], [place] [id number] CO2 [Moles/Vol] 28 mmol/L Normal 20-31 [facility] Comment on above: Performed By: #### F T4, VITD, TSH reflex FT4, LIPD, CBC, CMP #### [facility] [address], [place] [id number] Creatinine [Mass/Vol] 0.8 mg/dL Normal 0.7-1.4 [facility] Comment on above: Performed By: #### F T4, VITD, TSH reflex FT4, LIPD, CBC, CMP #### [facility] [address] [place], [place] [id number] eGFRAA 117 mL/min/1.73m2 Normal >60 [facility] Comment on above: Performed By: #### F T4, VITD, TSH reflex FT4, LIPD, CBC, CMP #### [facility] [address], [place] [id number] eGFRNAA 97 mL/min/1.73m2 Normal >60 [facility] Comment on above: Performed By: #### F T4, VITD, TSH reflex FT4, LIPD, CBC, CMP #### [facility] [address], [place] [id number] Globulin (S) [Mass/Vol] 2.1 g/dL Normal 1.9-3.7 [facility] Comment on above: Performed By: #### F T4, VITD, TSH reflex FT4, LIPD, CBC, CMP #### [facility] [address], [place] [id number] Glucose [Mass/Vol] 106 mg/dL High 65-[address] [facility] Comment on above: Result Comment: For FASTING Glucose --- ADA reference ranges: Normal 65-99 mg/dl Prediabetes 100-125 Diabetes >/= 126 Performed By: #### F T4, VITD, TSH reflex FT4, LIPD, CBC, CMP #### [facility] [address], [place] [id number] Potassium [Moles/Vol] 4.4 mmol/L Normal 3.5-5.5 [facility] Comment on above: Performed By: #### F T4, VITD, TSH reflex FT4, LIPD, CBC, CMP #### [facility] [address], [place] [id number] Protein [Mass/Vol] 6.8 g/dL Normal 6.1-8.1 [facility] Comment on above: Performed By: #### F T4, VITD, TSH reflex FT4, LIPD, CBC, CMP #### [facility] [address], [place] [id number] Sodium [Moles/Vol] 142 mmol/L Normal 135-146 [facility] Comment on above: Performed By: #### F T4, VITD, TSH reflex FT4, LIPD, CBC, CMP #### [facility] [address], [place] [id number] Urea nitrogen [Mass/Vol] 17 mg/dL Normal 7-25 [facility] Comment on above: Performed By: #### F T4, VITD, TSH reflex FT4, LIPD, CBC, CMP #### [facility] [address], [place] [id number] Free T4on 07-15-2021 Free T4 [Mass/Vol] 1.25 ng/dL Normal 0.80-1.80 [facility] Comment on above: Performed By: #### F T4, VITD, TSH reflex FT4, LIPD, CBC, CMP #### [facility] [address], [place] [id number] Lipid Panelon 07-15-2021 Cholesterol [Mass/Vol] 138 mg/dL Normal 125-200 [facility] Comment on above: Result Comment: Low risk < 200mg/dL Borderline risk 201-239 mg/dl High risk > or equal to 240 Performed By: #### F T4, VITD, TSH reflex FT4, LIPD, CBC, CMP #### [facility] [address], [place] [id number] Cholesterol in HDL [Mass/Vol] 51 mg/dL Normal >40 [facility] Comment on above: Result Comment: High Cardiovascular Risk HDL <40 mg/dL Low Cardiovascular Risk HDL > or equal to 60 mg/dl Performed By: #### F T4, VITD, TSH reflex FT4, LIPD, CBC, CMP #### [facility] [address], [place] [id number] Cholesterol in LDL [Mass/Vol] 67 mg/dL Normal [facility] Comment on above: Result Comment: LDL ATP III CLASSIFICATION LDL less than 100 mg/dl Optimal LDL 100-129 mg/dl Near or above optimal LDL 130-159 Borderline high LDL 160-189 High LDL greater than 189 mg/dl Very High Performed By: #### F T4, VITD, TSH reflex FT4, LIPD, CBC, CMP #### [facility] [address], [place] [id number] Cholesterol in VLDL [Mass/Vol] 20 mg/dL Normal [facility] Comment on above: Performed By: #### F T4, VITD, TSH reflex FT4, LIPD, CBC, CMP #### [facility] [address], [place] [id number] Cholesterol.total/ Cholesterol in HDL [Mass ratio] 3 {ratio} Normal [facility] Comment on above: Performed By: #### F T4, VITD, TSH reflex FT4, LIPD, CBC, CMP #### [facility] [address], [place] [id number] Triglyceride [Mass/Vol] 101 mg/dL Normal 30-150 [facility] Comment on above: Result Comment: TRIG ATPIII CLASSIFICATIONS TRIG less than 150 mg/dl Normal TRIG 150-199 mg/dl Borderline High TRIG 200-500 mg/dl High TRIG greather than 500 mg/dl Very High Performed By: #### F T4, VITD, TSH reflex FT4, LIPD, CBC, CMP #### [facility] [address], [place] [id number] TSH w/ Reflex to Free T4on 0 07-15-2021 FT4 reflex Free T4 Normal [facility] Comment on above: Performed By: #### F T4, VITD, TSH reflex FT4, LIPD, CBC, CMP #### [facility] [address] [place], [place] [id number] TSH 4.570 uIU/mL High 0.400-4.500 [facility] Comment on above: Performed By: #### F T4, VITD, TSH reflex FT4, LIPD, CBC, CMP #### [facility] [address] [place], [place] [id number] Vitamin D 25-OHon 07-15-2021 VIT D 25 OH 66 ng/ml Normal >29 [facility] Comment on above: Result Comment: Anu min D Status Deficiency <20 ng/mL Insufficiency 20-29 ng/mL Optimal 30-100 ng/mL Possible Toxicity >=150 ng/mL Performed By: #### F T4, VITD, TSH reflex FT4, LIPD, CBC, CMP #### [facility] [address] [place], [place] [id number] XR Wrist 2 Views Righton XR Wrist 2 Views Right FINDINGS: Mild dorsal lunate tilt. Mild generalized wrist soft tissue swelling. No fracture. Widening of the scapholunate space (5 mm) with suboptimal visualization of the scaphoid body/neck junction on the PA view, no displaced fracture seen on the lateral view. 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 IMPRESSION: 1. Unusual scaphoid morphology, remote fracture vs acute injury. If localizing symptoms are present, MRI will be of assistance for further characterization 2. Widening of the scapholunate joint consistent with ligament disruption Report reported and signed by Austen Maria on 07/15/2021 1509 Normal [facility] Prostatic Specific Antigen, Totalon 03-08-2021 TPSA 4.140 ng/mL High <4.000 [facility] Comment on above: Result Comment: PSA Test Method: ECLIA/Breanna e 601 Performed By: #### P SA #### [facility] [address], [place] [id number] Vital Signs Date Time Vital Sign Value Performing Clinician Facility 11-18-2022 13:05-0400 Body height 175.26 cm Edwige Lindsey Other [facility] Other 11-18-2022 13:05-0400 Body mass index (BMI) [Ratio] 25.54 kg/m2 Edwige Lindsey Other [facility] 11-18-2022 13:05-0400 Body temperature 98.1 [degF] Edwige Lindsey Other [facility] Other 11-18-2022 13:05-0400 Body weight 78.47 kg Edwige Lindsey Other [facility] Other 11-18-2022 13:05-0400 Diastolic blood pressure 73 mm[Hg] Edwige Lindsey Other [facility] Other 11-18-2022 13:05-0400 Respiratory rate 18 /min Edwige Lindsey Other [facility] Other 11-18-2022 13:05-0400 SaO2% (BldA) [Mass fraction] 92 % Edwige Lindsey Other [facility] Other 11-18-2022 13:05-0400 Systolic blood pressure 124 mm[Hg] Edwige Lindsey Other [facility] Other 08-24-2022 14:45-0400 Blood Pressure Location SIOBHAN KRAUSE [facility] 08-24-2022 14:45-0400 Diastolic blood pressure 70 mm[Hg] SIOBHAN KRAUSE [facility] 08-24-2022 14:45-0400 Heart rate 68 /min SIOBHAN JIMI [facility] 08-24-2022 14:45-0400 Respiratory rate 16 /min SIOBHAN JIMI [facility] 08-24-2022 14:45-0400 Systolic blood pressure 130 mm[Hg] SIOBHAN JIMI [facility] 03-22-2022 14:16-0500 Blood Pressure Location SIOBHAN JIMI [facility] 03-22-2022 14:16-0500 Diastolic blood pressure 82 mm[Hg] SIOBHAN JIMI [facility] 03-22-2022 14:16-0500 Heart rate 68 /min SIOBHAN JIMI [facility] 03-22-2022 14:16-0500 Respiratory rate 16 /min SIOBHAN JIMI [facility] 03-22-2022 14:16-0500 Systolic blood pressure 132 mm[Hg] SIOBHAN JIMI [facility] Encounters Encounter Date Encounter Type Care Provider Facility Start: 03-08-2023 End: 03-09-2023 ambulatory KVNG ARTHUR [facility] Start: 11-18-2022 End: 11-18-2022 ambulatory Edwige Lindsey Other [facility] Other Start: 11-18-2022 Office outpatient ne w 10 minutes Edwige Lindsey [facility] Start: 08-24-2022 End: 08-25-2022 ambulatory SIOBHAN KRAUSE Facility:[facility] Start: 08-24-2022 End: 08-24-2022 Patient encounter procedure SIOBHAN ARAGONRY [facility] Start: 04-22-2022 End: 04-22-[address] SIOBHAN CALERO Facility: Start: 03-22-2022 End: 03-23-2022 ambulatory SIOBHAN KRAUSE Facility:[facility] Start: 03-22-2022 End: 03-22-2022 Patient encounter procedure [facility]IOBHAN KRAUSE [facility] Start: 12-30-2021 End: 12-30-2021 ambulatory SUSANA MADISON . Facility:[facility] Start: 09-04-2021 End: 09-04-2021 ambulatory DEEPIKA HENDRICKS Facility:[facility] Start: 08-15-2021 End: 08-15-2021 ambulatory SUSANA MADISON . Facility:[facility] Start: 06-22-2021 End: 01-06-[address] SIOBHAN CALERO Facility: Procedures Date Procedure Procedure Detail Performing Clinician Start: 12-22-2018 Carotid endarterectomy SIOBHAN KRAUSE Comment on above: Left side Start: 09-28-2012 Cystoscopy SIOBHAN SHAW Hand Surgery SIOBHAN KRAUSE Nose Surgery SIOBHAN KRAUSE Ophthalmic surgery (qualifier value) SIOBHAN KRAUSE Repair of inguinal hernia JE HANNA ARAGONRY Plan of Treatment Date Care Activity Detail Author Start: 03-31-2023 ambulatory Ambulatory Facility:[facility] Immunizations Immunization Date Immunization Notes Care Provider Latisha millan 01-11-2022 influenza virus vacc ine, unspecified formulation SIOBHAN KRAUSE [facility] 01-11-2022 zoster vaccine recombinant SIOBHAN KRAUSE [facility] 07-15-2021 pneumococcal polysaccharide vaccine, 23 valent SIOBHAN JIMI [facility] 02-16-2021 zoster vaccine recombinant SIOBHAN JIMI [facility] 12-29-2020 influenza virus vacc ine, unspecified formulation SIOBHAN JIMI [facility] 12-23-2020 SARS-CoV-2 (COVID-19 ) mRNA-1273 vaccine SIOBHAN JIMI [facility] 12-16-2020 influenza virus vacc ine, unspecified formulation SIOBHAN JIMI [facility] 12-16-2020 SARS-CoV-2 (COVID-19 ) mRNA BNT-162b2 vax SIOBHAN JIMI [facility] 11-29-2020 SARS-CoV-2 (COVID-19 ) mRNA-1273 vaccine SIOBHAN JIMI [facility] 05-06-2020 SARS-CoV-2 (COVID-19 ) mRNA BNT-162b2 vax SIOBHAN JIMI [facility] Comment on above: Result Comment: 2022: [id number] 04-14-2020 SARS-CoV-2 (COVID-19 ) mRNA BNT-162b2 vax SIBOHAN JIMI [facility] Comment on above: Result Comment: 2022: [id number] 03-06-2020 SARS-CoV-2 (COVID-19 ) mRNA BNT-162b2 vax SIOBHAN JIMI [facility] Comment on above: Result Comment: Pt s geovanny he had 3 shots to date 01-22-2020 influenza virus vacc ine, unspecified formulation SIOBHAN JIMI [facility] 11-26-2019 influenza virus vacc ine, unspecified formulation SIOBHAN JIMI [facility] 12-04-2018 influenza virus vacc ine, unspecified formulation SIOBHAN JIMI [facility] 11-22-2018 influenza virus vacc ine, unspecified formulation SIOBHAN JIMI [facility] 01-22-2018 influenza virus vacc ine, unspecified formulation SIOBHAN JIMI [facility] 11-15-2016 influenza virus vacc ine, unspecified formulation SIOBHAN JIMI [facility] 01-29-2016 pneumococcal polysaccharide vaccine, 23 valent SIOBHAN JIMI [facility] 12-09-2015 influenza virus vacc ine, unspecified formulation SIOBHAN JIMI [facility] 01-14-2015 influenza virus vacc ine, unspecified formulation SIOBHAN JIMI [facility] 01-14-2015 pneumococcal conjuga te vaccine, 13 valent SIOBHAN JIMI [facility] 12-20-2013 influenza virus vacc ine, unspecified formulation SIOBHAN JIMI [facility] 05-21-2013 tetanus toxoid, redu wilma diphtheria toxoid, and acellular pertussis vaccine, adsorbed SIOBHAN JIMI [facility] 12-07-2012 influenza virus vacc ine, unspecified formulation SIOBHAN JIMI [facility] 01-02-2012 influenza virus vacc ine, unspecified formulation SIOBHAN JIMI [facility] 01-02-2012 pneumococcal polysaccharide vaccine, 23 valent SIOBHAN JIMI [facility] 12-14-2010 influenza, whole SIOBHAN PE RRY [facility] 01-21-2010 influenza virus vacc ine, unspecified formulation SIOBHAN JIMI [facility] Payers Date Payer Category Payer Medicare [id number] 1960 Unknown [id number] 1950 Unknown [id number] 2.16.84 [id number] 1950 Unknown [id number] 2.16.84 [id number] 1949 Unknown [id number] 2.16.84 [id number] 1949 Unknown [id number] 2.16.84 [id number] 1949 Unknown [id number] 2.16.84 [id number] 1949 Unknown [id number] 2.16.8 [id number] 1949 Unknown [id number] 2.16.8 [id number] 1949 Unknown [id number] 2.16.8 [id number] 1949 Unknown [id number] 2.16.84 [id number] Social History Date Type Detail Facility Start: 03-22-2022 End: 08-24-2022 Tobacco smoking status Ex-smoker (finding) [facility] Sex Assigned At Male [facility] Tobacco smoking status Never [facility] Functional Status Date Assessment Result Facility 08-24-2022 Functional Status N/A [facility] 03-22-2022 Functional Status N/A [facility] Evaluation note 11-18-2022 Note Date & Type Note Facility 11-18-2022 Evaluation note Encounter Date Diagnosis Assessment Notes Nov, History of COPD (ICD-10 - Z87.09) Drink plenty fluids, get plenty of rest. Continue home medications as prescribed. Take the prednisone as prescribed until gone. Call your doctor on Monday for reevaluation next week. Nov, Wheezing (ICD-10 - R06.2) [facility] Other Hospital Discharge instructions 08-24-2022 Note Date & Type Note Facility 08-24-2022 Hospital Discharg e instructions Patient Education 08/24/2022 15:30:17 Transurethral Resection of the Prostate Transurethral Resection of the Prostate Transurethral resection of the prostate (TURP) is the removal, or resection, of part of the prostate tissue. This procedure is done to treat an enlarged prostate gland (benign prostatic hyperplasia). The goal of TURP is to remove enough prostate tissue to allow for a normal flow of urine. The procedure will allow you to empty your bladder more completely when you urinate so that you can urinate less often. In a transurethral resection, a thin telescope with a light, a camera, and an electric cutting edge (resectoscope) is passed through the urethra and into the prostate. The opening of the urethra is at the end of the penis. Tell a health care provider about: Any allergies you have. All medicines you are taking, including vitamins, herbs, eye drops, creams, and onoc-ehm-rsrizim medicines. Any problems you or family members have had with anesthetic medicines. Any bleeding problems you have. Any surgeries you have had. Any medical conditions you have. Any prostate infections you have had. What are the risks? Generally, this is a safe procedure. However, problems may occur, including: Infection. Bleeding. Allergic reactions to medicines. Blood in the urine (hematuria). Damage to nearby structures or organs. Other problems may occur, but they are rare. They include: Dry ejaculation, or having no semen come out during orgasm. Erectile dysfunction, or being unable to have or keep an erection. Scarring that leads to narrowing of the urethra. This narrowing may block the flow of urine. Inability to control when you urinate (incontinence). Deep vein thrombosis. This is a blood clot that can develop in your leg. TURP syndrome. This can happen when you lose too much sodium during or after the procedure. Some signs and symptoms of this condition include: ?Weakness. ?Headaches. ?Nausea or vomiting. ?Muscle cramping. What happens before the procedure? When to stop eating and drinking Follow instructions from your health care provider about what you may eat and drink before your procedure. These may include: 8 hours before your procedure ?Stop eating most foods. Do not eat meat, fried foods, or fatty foods. ?Eat only light foods, such as toast or crackers. ?All liquids are okay except energy drinks and alcohol. 6 hours before your procedure ?Stop eating. ?Drink only clear liquids, such as water, clear fruit juice, black coffee, plain tea, and sports drinks. ?Do not drink energy drinks or alcohol. 2 hours before your procedure ?Stop drinking all liquids. ?You may be allowed to take medicines with small sips of water. If you do not follow your health care provider's instructions, your procedure may be delayed or canceled. Medicines Ask your health care provider about: Changing or stopping your regular medicines. This is especially important if you are taking diabetes medicines or blood thinners. Taking medicines such as aspirin and ibuprofen. These medicines can thin your blood. Do not take these medicines unless your health care provider tells you to take them. Taking llhi-rfj-euxgwrq medicines, vitamins, herbs, and supplements. Surgery safety Ask your health care provider what steps will be taken to help prevent infection. These steps may include: Removing hair at the surgery site. Washing skin with a germ-killing soap. Taking antibiotic medicine. General instructions Do not use any products that contain nicotine or tobacco for at least 4 weeks before the procedure. These products include cigarettes, chewing tobacco, and vaping devices, such as e-cigarettes. If you need help quitting, ask your health care provider. If you will be going home right after the procedure, plan to have a responsible adult: ?Take you home from the hospital or clinic. You will not be allowed to drive. ?Care for you for the time you are told. What happens during the procedure? An IV will be inserted into one of your veins. You will be given one or more of the following: ?A medicine to help you relax (sedative). ?A medicine to make you fall asleep (general anesthetic). ?A medicine that is injected into your spine to numb the area below and slightly above the injection site (spinal anesthetic). Your legs will be placed in foot rests (stirrups) so that your legs are apart and your knees are bent. The resectoscope will be passed through your urethra to your prostate. Parts of your prostate will be resected using the cutting edge of the resectoscope. Fluid will be passed to rinse out the cut tissues (irrigation). The resectoscope will be removed. A small, thin tube (catheter) will be passed through your urethra and into your bladder. The catheter will drain urine into a bag outside of your body. The procedure may vary among health care providers and hospitals. What happens after the procedure? Your blood pressure, heart rate, breathing rate, and blood oxygen level will be monitored until you leave the hospital or clinic. You will be given fluids through the IV. The IV will be removed when you start eating and drinking normally. You may have some pain. Pain medicine will be available to help you. You will have a catheter draining your urine. ?You may have blood in your urine. Your catheter may be kept in until your urine is clear. ?Your urinary drainage will be monitored. If necessary, your bladder may be rinsed out (irrigated) through your catheter. You will be encouraged to walk around as soon as possible. You may have to wear compression stockings. These stockings help to prevent blood clots and reduce swelling in your legs. If you were given a sedative during the procedure, it can affect you for several hours. Do not drive or operate machinery until your health care provider says that it is safe. Summary Transurethral resection of the prostate (TURP) is the removal (resection) of part of the prostate tissue. The goal of this procedure is to remove enough prostate tissue to allow for a normal flow of urine. Follow instructions from your health care provider about taking medicines and about eating and drinking before the procedure. This information is not intended to replace advice given to you by your health care provider. Make sure you discuss any questions you have with your health care provider. Document Revised: 11/16/2021 Document Reviewed: 11/16/2021 [employer] Patient Education 2022 [employer]. Follow Up Care 06/27/2022 16:39:34 With:JIMI GARCIA, SIOBHAN Bullock, URL Address: [address] [place] [address] When: Unknown [facility] Hospital Discharge instructions 03-22-2022 Note Date & Type Note Facility 03-22-2022 Hospital Discharge instructions Patient Education 03/22/2022 14:48:50 Benign Prostatic Hyperplasia Benign Prostatic Hyperplasia Benign prostatic hyperplasia (BPH) is an enlarged prostate gland that is caused by the normal aging process and not by cancer. The prostate is a walnut-sized gland that is involved in the production of semen. It is located in front of the rectum and below the bladder. The bladder stores urine and the urethra is the tube that carries the urine out of the body. The prostate may get bigger as a man gets older. An enlarged prostate can press on the urethra. This can make it harder to pass urine. The build-up of urine in the bladder can cause infection. Back pressure and infection may progress to bladder damage and kidney (renal) failure. What are the causes? This condition is part of a normal aging process. However, not all men develop problems from this condition. If the prostate enlarges away from the urethra, urine flow will not be blocked. If it enlarges toward the urethra and compresses it, there will be problems passing urine. What increases the risk? This condition is more likely to develop in men over the age of 50 years. What are the signs or symptoms? Symptoms of this condition include: Getting up often during the night to urinate. Needing to urinate frequently during the day. Difficulty starting urine flow. Decrease in size and strength of your urine stream. Leaking (dribbling) after urinating. Inability to pass urine. This needs immediate treatment. Inability to completely empty your bladder. Pain when you pass urine. This is more common if there is also an infection. Urinary tract infection (UTI). How is this diagnosed? This condition is diagnosed based on your medical history, a physical exam, and your symptoms. Tests will also be done, such as: A post-void bladder scan. This measures any amount of urine that may remain in your bladder after you finish urinating. A digital rectal exam. In a rectal exam, your health care provider checks your prostate by putting a lubricated, gloved finger into your rectum to feel the back of your prostate gland. This exam detects the size of your gland and any abnormal lumps or growths. An exam of your urine (urinalysis). A prostate specific antigen (PSA) screening. This is a blood test used to screen for prostate cancer. An ultrasound. This test uses sound waves to electronically produce a picture of your prostate gland. Your health care provider may refer you to a specialist in kidney and prostate diseases (urologist). How is this treated? Once symptoms begin, your health care provider will monitor your condition (active surveillance or watchful waiting). Treatment for this condition will depend on the severity of your condition. Treatment may include: Observation and yearly exams. This may be the only treatment needed if your condition and symptoms are mild. Medicines to relieve your symptoms, including: ?Medicines to shrink the prostate. ?Medicines to relax the muscle of the prostate. Surgery in severe cases. Surgery may include: ?Prostatectomy. In this procedure, the prostate tissue is removed completely through an open incision or with a laparoscope or robotics. ?Transurethral resection of the prostate (TURP). In this procedure, a tool is inserted through the opening at the tip of the penis (urethra). It is used to cut away tissue of the inner core of the prostate. The pieces are removed through the same opening of the penis. This removes the blockage. ?Transurethral incision (TUIP). In this procedure, small cuts are made in the prostate. This lessens the prostate's pressure on the urethra. ?Transurethral microwave thermotherapy (TUMT). This procedure uses microwaves to create heat. The heat destroys and removes a small amount of prostate tissue. ?Transurethral needle ablation (TUNA). This procedure uses radio frequencies to destroy and remove a small amount of prostate tissue. ?Interstitial laser coagulation (ILC). This procedure uses a laser to destroy and remove a small amount of prostate tissue. ?Transurethral electrovaporization (TUVP). This procedure uses electrodes to destroy and remove a small amount of prostate tissue. ?Prostatic urethral lift. This procedure inserts an implant to push the lobes of the prostate away from the urethra. Follow these instructions at home: Take rnub-vko-giyxhge and prescription medicines only as told by your health care provider. Monitor your symptoms for any changes. Contact your health care provider with any changes. Avoid drinking large amounts of liquid before going to bed or out in public. Avoid or reduce how much caffeine or alcohol you drink. Give yourself time when you urinate. Keep all follow-up visits as told by your health care provider. This is important. Contact a health care provider if: You have unexplained back pain. Your symptoms do not get better with treatment. You develop side effects from the medicine you are taking. Your urine becomes very dark or has a bad smell. Your lower abdomen becomes distended and you have trouble passing your urine. Get help right away if: You have a fever or chills. You suddenly cannot urinate. You feel lightheaded, or very dizzy, or you faint. There are large amounts of blood or clots in the urine. Your urinary problems become hard to manage. You develop moderate to severe low back or flank pain. The flank is the side of your body between the ribs and the hip. These symptoms may represent a serious problem that is an emergency. Do not wait to see if the symptoms will go away. Get medical help right away. Call your local emergency services (911 in the [place] Do not drive yourself to the hospital. Summary Benign prostatic hyperplasia (BPH) is an enlarged prostate that is caused by the normal aging process and not by cancer. An enlarged prostate can press on the urethra. This can make it hard to pass urine. This condition is part of a normal aging process and is more likely to develop in men over the age of 50 years. Get help right away if you suddenly cannot urinate. This information is not intended to replace advice given to you by your health care provider. Make sure you discuss any questions you have with your health care provider. Document Released: 02/20/2006 Document Revised: 01/15/2019 Document Reviewed: 03/27/2017 [employer] Patient Education 2020 [employer]. Follow Up Care 03/11/2021 15:40:43 With:SIOBHAN KRAUSE PA-C, URL Address: When:1 year [facility] Evaluation + Plan note Note Date & Type Note Facility Evaluation + Plan note Future Appointments Appointment Date:03/22/2023 02:20:00 PM Scheduled Provider:SIOBHAN KRAUSE PA-C Location:[facility] Appointment Type:URO Office Visit Diagnostic Tests PendingPSA Free & Total 03/22/22PSA Free & Total 03/22/22 [facility] Evaluation + Plan note Note Date & Type Note Facility Evaluation + Plan note Future Appointments Appointment Date:03/22/2023 02:20:00 PM Scheduled Provider:SIOBHAN KRAUSE PA-C Location:[facility] Appointment Type:URO Office Visit [facility] History general Narrative - Reported Note Date & Type Note Facility History general Narrative - Reported Type Medical History Chronic obstructive pulmonary disease, unspecified COPD type Medical History Uncomplicated asthma , unspecified asthma severity Medical History ST elevation myocard ial infarction (STEMI), unspecified artery Medical History Hypercholesterolemia Medical History Benign essential HTN Medical History Benign prostatic hyp erplasia, unspecified whether lower urinary tract symptoms present Surgical History umbilical hernia repair Surgical History colonoscopy Hospitalization History see above [facility] Other Hospital course Narrative Note Date & Type Note Facility Hospital course Narrative No data available for this section [facility] Progress note Note Date & Type Note Facility Progress note No data available for this section [facility] Summary Purpose Family History No Family History Records FoundNo Family History Records FoundNo Family History Records FoundNo Family History Records Found Advance Directives No Advanced Directives Records FoundNo Advanced Directives Records FoundNo Advanced Directives Records FoundNo Advanced Directives Records Found Additional Source Comments (unrecognized sect ion and content) No Status Records FoundNo Status Records FoundNo Status Records FoundNo Status Records Found INFORMATION SOURCE (unrecogn ized section and content) DATE CREATED AUTHOR 10/28/2021 [facility] dical Specialist DATE CREATED AUTHOR AUTHOR'S ORGANIZ ATION 04/26/2022 [facility] DATE CREATED AUTHOR AUTHOR'S ORGANIZ ATION 01/04/2023 Payan Vinton [facility] DATE CREATED AUTHOR AUTHOR'S ORGANIZ ATION 03/12/2023 [facility] Patient Care team informatio n (unrecognized section and content) Personnel Name: SIOBHAN CALERO MD Address: Address: [address] [place] [address] [place] [address] Personnel Name: SIOBHAN CALERO MD Address: Address: [address] [place], [place] [id number] REASON FOR VISIT (unrecogniz ed section and content) COUGH, CONGESTION, POSS COPD FLARE UP INHALERS NOT WORKING, FOR RECORDS PERTAINING TO PATIENTS WHO ARE OR HAVE BEEN ENROLLED IN A CHEMICAL DEPENDENCY/SUBSTANCEABUSE PROGRAM, SOME INFORMATION MAY BE OMITTED. This clinical summary was aggregated from multiple sources. Caution should be exercised in using it in the provision of clinical care. This summary normalizes information from multiple sources, and as a consequence, information in this document may materially change the coding, format and clinical context of patient data. In addition, data may be omitted in some cases. CLINICAL DECISIONS SHOULD BE BASED ON THE PRIMARY CLINICAL RECORDS. [facility]. provides no warranty or guarantee of the accuracy or completeness of information in this document.
[2023-03-22 05:08] LABS: PSA, Free 0.95 ng/mL; Prostate Specific Ag 3.8 ng/mL (0.0-4.0)
== END 2023-03-21 10:31 | disposition home or self-care (01) ==
LOC: LAB 10:33
PROVIDERS: PCP Family Medicine; Visit Provider Physician Assistant
DX: R97.20 Elevated prostate specific antigen [PSA] (principal)
CPT/HCPCS: 36415; 84153; 84154

== ENCOUNTER 2023-08-01 13:16 | Inpatient (IN) | payer MEDICARE, OTHER, SELFPAY ==
[2023-08-01] VITALS (8 sets, daily range): BP systolic 122–168; BP diastolic 63–96; PULSE 85–114; TEMP 36.5–36.9; O2SAT 88–95; BMI 25.1; BMI 25.0
--- NOTE | 2023-08-01 13:32 | ECG_ITS ---
[facility] Test Date: 2023-08-01 Pat Name: LYSSA VÁZQUEZ Department: Room: - Gender: Male [employer] In[employer]: : 1950 Requested By: [id number] Order Number: [id number] Reading MD: VENKATA MURCIA Measurements Intervals Gipsy Rate: 100 P: 81 MN: 176 QRS: 270 QRSD: 122 T: 61 QT: 356 QTc: 413 Interpretive Statements 1120 Sinus tachycardia 2450 Right bundle branch block 2730 Left posterior fascicular block 0102 ARTIFACT PRESENT 9150 abnormal ECG Electronically Signed On 08-02-2023 6:53:50 EDT by VENKATA MURCIA
--- NOTE | 2023-08-01 13:32 | XR_ITS ---
[facility] [place] [id number] Patient Name: LYSSA VÁZQUEZ MRN: [id number] date: 1950 Sex: M Assigned Patient Location: ER Current Patient Location: ER Accession/Order Number: [id number] Exam Date: 08/01/2023 13:38 Report Date: 08/01/2023 13:53 At the request of: JANICE RAMIREZ Procedure: XR chest 1V EXAM: XR chest 1V at 1333 hours HISTORY: SOB COMPARISON: 12/31/2022 TECHNIQUE: AP upright portable chest x-ray FINDINGS: The heart is not enlarged and the vasculature is not distended. No acute infiltrate, effusion or pneumothorax is identified. The lungs are mildly overexpanded. The osseous structures are grossly intact. XR/XR chest 1V IMPRESSION: No acute infiltrate or evidence of cardiac decompensation. The overall appearance of the chest is essentially unchanged. Electronically authenticated by: JEANINE ESPOSITO Date: 08/01/2023 13:53
--- NOTE | 2023-08-01 13:33 | ED.SOB1 ---
HPI - SOB/Dyspnea General Chief Complaint: Shortness of Breath/Dyspnea Stated Complaint: SOB, COPD Time Seen by Provider: 08/01/23 13:21 Source: patient Mode of arrival: Wheelchair Limitations: physical limitation History of Present Illness HPI Narrative: 72-year-old male presents for difficulty breathing. He has not been feeling well for for 5 days but it was worse today. 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 He used his nebulizer at home and it helped some. He has not had a fever but has had a nonproductive cough. He is on 5 mg of prednisone every day and took 40 mg today. He has not needed to be admitted to the hospital this calendar year. He has no complaints of chest pain. Related Data Home Medications ?Medication ?Instructions ?Recorded ?Confirmed albuterol sulfate 90 mcg/actuation 2 puff inhalation Q6H PRN 12/31/22 08/01/23 aerosol inhaler shortness of breath or wheezing budesonide-formoterol HFA 160 1 puff inhalation Q12H 12/31/22 08/01/23 mcg-4.5 mcg/actuation aerosol inhaler (Symbicort) ipratropium 0.5 mg-albuterol 3 mg 3 ml inhalation Q6H 12/31/22 08/01/23 (2.5 mg base)/3 mL nebulization soln metoprolol succinate 100 mg 100 mg PO DAILY 12/31/22 08/01/23 tablet,extended release 24 hr primidone 50 mg tablet 50 mg PO DAILY 12/31/22 08/01/23 tamsulosin 0.4 mg capsule 0.8 mg PO Q24H 12/31/22 08/01/23 atorvastatin 80 mg tablet 80 mg PO DAILY 08/01/23 08/01/23 donepezil 10 mg tablet 10 mg PO DAILY 08/01/23 08/01/23 levothyroxine 100 mcg tablet 100 mcg PO DAILY 08/01/23 08/01/23 prednisone 5 mg tablet 5 mg PO DAILY 08/01/23 08/01/23 Allergies Allergy/AdvReac Type Severity Reaction Status Date / Time ciprofloxacin [From Cipro] AdvReac Severe Cramping Verified 08/01/23 13:23 of the Muscles levofloxacin AdvReac Severe Cramping Verified 08/01/23 13:23 of the Muscles Review of Systems ROS Narrative A ten point review of systems is negative except as noted above. PFSH PFSH Social History Smoking status: Former smoker Exam Narrative Exam Narrative: Nurses note and vital signs reviewed and patient is not hypoxic. General: The patient appears well and in no apparent distress. Patient is resting comfortably on cart. Skin: Warm, dry, no pallor noted. There is no rash noted. Head: Normocephalic, atraumatic Eye: Normal conjunctiva, no drainage Ears, Nose, Mouth, and Throat: oral mucosa is moist. Nares patent. Cardiovascular: Regular Rate and Rhythm Respiratory: Bilateral rhonchi present, breath sounds are equal Back: non-tender GI: Soft and nontender Musculoskeletal: The patient has no evidence of calf tenderness, symmetrical pulses noted bilaterally Neurological: A&O, normal speech Psychiatric: Cooperative Constitutional Vital Signs, click to edit/add: Last Vital Signs Temp 98.0 F 08/01/23 13:20 Pulse 100 H 08/01/23 14:32 Resp 24 H 08/01/23 14:32 BP 129/70 08/01/23 14:32 Pulse Ox 93 L 08/01/23 14:32 O2 Del Method Nasal Cannula 08/01/23 14:01 O2 Flow Rate 2 08/01/23 14:32 Course Vital Signs Vital signs: Vital Signs Temperature 98.0 F 08/01/23 13:20 Pulse Rate 114 H 08/01/23 13:20 Respiratory Rate 24 H 08/01/23 13:20 Blood Pressure 168/96 H 08/01/23 13:20 Pulse Oximetry 88 L 08/01/23 13:20 Oxygen Delivery Method Nasal Cannula 08/01/23 13:20 Oxygen Delivery Flow Rate 2 08/01/23 13:20 Temperature 98.0 F 08/01/23 13:20 Pulse Rate 100 H 08/01/23 14:32 Respiratory Rate 24 H 08/01/23 14:32 Blood Pressure 129/70 08/01/23 14:32 Pulse Oximetry 93 L 08/01/23 14:32 Oxygen Delivery Method Nasal Cannula 08/01/23 14:01 Oxygen Delivery Flow Rate 2 08/01/23 14:32 MDM - SOB/Dyspnea MDM Narrative Medical decision making narrative: The patient presents with COPD exacerbation. Chest x-ray shows no infiltrates and his respiratory panel is negative. Blood cultures were obtained and he was given IV antibiotic and he is being admitted. I do not clinically suspect pulmonary embolism. Treatment diagnosis and disposition were discussed with the patient and his . Differential Diagnosis Differential diagnosis: Likely acute exacerbation of chronic obstructive airways disease, congestive heart failure, community acquired pneumonia and other (COVID, influenza) Lab Data Attestation: I reviewed the patient's lab results. Labs: Lab Results 08/01/23 08/01/23 Range/Units 13:30 13:35 WBC 12.1 H (4.0-11.0) 10^3/uL RBC 4.85 (4.70-6.10) 10^6/uL Hgb 15.1 (14.0-18.0) g/dL Hct 48.3 (42.0-54.0) % MCV 99.6 H (80.0-94.0) fL MCH 31.1 (25.9-34.0) pg MCHC 31.3 (29.9-35.2) g/dL RDW 12.5 (11.0-15.0) % Plt Count 242 (150-450) 10^3/uL MPV 10.3 (9.5-13.5) fL Neut % (Auto) 89.3 H (43.0-75.0) % Lymph % (Auto) 6.9 L (20.5-60.0) % Mccreary % (Auto) 1.3 L (1.7-12.0) % Eos % (Auto) 0.7 L (0.9-7.0) % Baso % (Auto) 0.3 (0.2-2.0) % Neut # (Auto) 10.8 H (1.4-6.5) 10^3/uL Lymph # (Auto) 0.8 L (1.2-3.8) 10^3/uL Mccreary # (Auto) 0.2 L (0.3-0.8) 10^3/uL Eos # (Auto) 0.1 (0.0-0.7) 10^3/uL Baso # (Auto) 0.0 (0.0-0.1) 10^3/uL Abs Immat Gran (auto) 0.18 H (0.00-0.03) 10^3/uL Imm/Tot Granulo (auto) 1.5 H (0.0-0.5) % Sodium 142 (136-145) mmol/L Potassium 4.0 (3.5-5.1) mmol/L Chloride 103 (98-107) mmol/L Carbon Dioxide 36.6 H (21.0-32.0) mmol/L Anion Gap 6.4 BUN 13.0 (7.0-18.0) mg/dL Creatinine 0.91 (0.70-1.30) mg/dL Est GFR ( Amer) >60 (>=60) Est GFR (Non-Af Amer) >60 (>=60) BUN/Creatinine Ratio 14.3 Glucose 98 (74-106) mg/dL Calcium 9.2 (8.5-10.1) mg/dL Troponin I High Sens 8.4 (4.0-76.1) pg/mL Adenovirus (PCR) Not detected (NOT DETECTE) B. pertussis DNA (PCR) Not detected (NOT DETECTE) B.parapertussis DNA PCR Not detected (NOT DETECTE) C. pneumoniae DNA (PCR) Not detected (NOT DETECTE) Coronavirus Type OC43 Not detected (NOT DETECTE) Coronavirus Type HKU1 Not detected (NOT DETECTE) Coronavirus Type 229E Not detected (NOT DETECTE) Coronavirus Type NL63 Not detected (NOT DETECTE) Human Metapneumovir PCR Not detected (NOT DETECTE) Influenza Type A (PCR) Not detected (NOT DETECTE) Influenza Type B (PCR) Not detected (NOT DETECTE) M. pneumoniae (PCR) Not detected (NOT DETECTE) Parainfluenza PCR Not detected (NOT DETECTE) Parainfluenza 2 (PCR) Not detected (NOT DETECTE) Parainfluenza 3 (PCR) Not detected (NOT DETECTE) Parainfluenza 4 (PCR) Not detected (NOT DETECTE) RSV (RT-PCR) Not detected (NOT DETECTE) Entero/Rhino (PCR) Not detected (NOT DETECTE) SARS-CoV-2 (PCR) Not detected (NOT DETECTE) Imaging Data Chest x-ray: Radiologist's impression: ITS Impressions Chest X-Ray 08/01/23 13:32 IMPRESSION: No acute infiltrate or evidence of cardiac decompensation. The overall appearance of the chest is essentially unchanged. Electronically authenticated by: JEANINE ESPOSITO Date: 08/01/2023 13:53 ECG Data Attestation: I personally reviewed and interpreted this ECG as follows: (EKG on my interpretation shows sinus rhythm with a rate of 100 and some artifact.) Critical Care Time Critical Care Time Critical Care Time: Yes Total Critical Care Time: 35 Attestation: Due to the high probability of sudden and clinically significant deterioration in the patient's condition he/she required the highest level of my preparedness to intervene urgently I provided critical care time including documentation time, medication orders and management, reevaluation, vital sign assessment, ordering and reviewing of lab tests, ordering and reviewing of x-ray studies, and admission orders. Aggregate critical care time is 35 minutes including only time during which I was engaged in work directly related to his/her care and did not include time spent treating other patients simultaneously. Discharge Plan Discharge Chief Complaint: Shortness of Breath/Dyspnea Clinical Impression: Acute exacerbation of chronic obstructive pulmonary disease Patient Disposition: Admitted As Inpatient Time of Disposition Decision: 15:19 Condition: Fair Prescriptions / Home Meds: No Action albuterol sulfate 90 mcg/actuation HFA aerosol inhaler 2 puff INHALATION Q6H PRN (Reason: shortness of breath or wheezing) budesonide-formoterol [Symbicort] 160-4.5 mcg/actuation HFA aerosol inhaler 1 puff INHALATION Q12H ipratropium-albuterol 0.5 mg-3 mg(2.5 mg base)/3 mL solution for nebulization 3 ml INHALATION Q6H metoprolol succinate 100 mg tablet extended release 24 hr 100 mg PO DAILY primidone 50 mg tablet 50 mg PO DAILY tamsulosin 0.4 mg capsule 0.8 mg PO Q24H levothyroxine 100 mcg tablet 100 mcg PO DAILY atorvastatin 80 mg tablet 80 mg PO DAILY donepezil 10 mg tablet 10 mg PO DAILY prednisone 5 mg tablet 5 mg PO DAILY Print Language: Burkinan Referrals: BRITTANI CALERO [Primary Care Provider] - 1 week
--- OUTSIDE RECORDS SUMMARY | 2023-08-01 13:45 | XMS_ITS | CCD ---
Author Organization [facility] CliniSyhi Care Team Providers Care Telegraph And Teletype Operator Name Role Phone SIOBHAN CALERO Primary Care Physician [phone] SUSANA KAYE Attending Unavailable LOS George, SUSANA Admitting Unavailable MARCELLA HENDERSON Consulting Unavailable ABDIAS, DR PETER Primary Care Unavailable SUSANA KAYE Consulting Unavailable DEEPIKA HENDRICKS Admitting Unavailable DEEPIKA HENDRICKS Attending Unavailable DEEPIKA HENDRICKS Consulting Unavailable ABDIAS, DR PETER Primary Care Unavailable SUSANA KAYE Admitting Unavailable ADRIENNE, DR HUGO Mahajan Consulting Unavailable SUSANA KAYE Attending Unavailable ABDIAS, DR PETER Primary Care Unavailable SUSANA KAEY Consulting Unavailable ABDIAS, DR PETER Primary Care Unavailable DAMION ., SAPNA Admitting Unavailable LETICIA MARTINEZ Consulting Unavailable DAMION .ODINM Attending Unavailable DAMION ., SAPNA Consulting Unavailable BADIAS, DR PETER Admitting Unavailable ABDIAS, DR PETER Attending Unavailable ABDIAS, DR PETER Consulting Unavailable ABDIAS, DR PETER Primary Care Unavailable Edwige Lindsey Unavailable Siobhan Calero MD Unavailable [phone] Siobhan Calero MD Primary Care Provider SIOBHAN CALERO Primary Care Physician Bree Frias Attending Unavailable Bree Frias Attending Unavailable SIOBHAN KRAUSE Attending Unavailable Siobhan Calero MD Primary Care Provider DO Kvng Arthur Attending Provider NON STAFF Primary Care Provider Unavailabl e NON STAFF Primary Care Unavailable Kvng Arthur Attending Unavailable Kvng Arthur Admitting Unavailable SONA PALOMARES Attending Unavailable SONA PALOMARES Referring Unavailable SIOBHAN CALERO Primary Care Unavailable KVNG ARTHUR Attending Unavailable KVNG ARTHUR Referring Unavailable SIOBHAN CALERO Primary Care Unavailable EVETTE ODONNELL Attending Unavailab dima ODONNELL, VEETTE Chase Referring Unavailab KENDAL Martinez Attending Unavailable ROWAN MCCLELLAN Attending Unavailable SONA PALOMARES Attending Unavailable SIOBHAN CALERO Referring Unavailable SIOBHAN CALERO Primary Care Unavailable VIOLA LAMBERT Attending Unavailable SIOBHAN CALERO Referring Unavailable SIOBHAN CALERO Primary Care Unavailable SONA PALOMARES Attending Unavailable SIOBHAN CALERO Referring Unavailable SIOBHAN CALERO Primary Care Unavailable Allergies Allergy Classification Reported Allergen(s) Allergy Type Date of Onset Reaction(s) Facility (1 source) Ciprofloxacin Drug Allergy [facility] Repository (3 sources) levoFLOXacin; Translations: [LEVOFLOXACIN] Drug Allergy 04-06-2021 [facility] Repository (5 sources) Ciprofloxacin; Translations: [CIPROFLOXACIN] Drug Allergy 01-06-2023 [facility] Work Phone: (3 sources) levoFLOXacin Drug Allergy 07-26-2022 [facility] Healthcare Medications Current Medications Medication Drug Class(es) Dates Sig (Normalized) Sig (Original) Aircast AirSport Ankle Brace 1 (1 source) Start: 11-13-2016 Aircast AirSport Ankle Brace 1 as directed air cast as directed for days Nov, Active albuterol 0.83 mg/ml inhalation solution (5 sources) beta2-Adrenergic Agonist Start: 04-19-2023 albuterol 0.083% Inh Lilliana 3 mL Refill(s) 0 Start Date: 04/19/23 Status: Ordered Start: 04-10-2023 albuterol (2.5 MG/3ML) 0.083% nebulizer solution Indications: Chronic obstructive pulmonary disease, unspecified COPD type ([facility]) Take 3 mL (2.5 mg) by nebulization every 4 (four) hours if needed for wheezing or shortness of breath 75 mL 1 04/10/2023 Active Start: 03-29-2023 End: 06-27-2023 take 2 puff(s) by inhalation every four hours for wheezing albuterol HFA 90 mcg/act inhaler Indications: Panlobular emphysema ([facility]) , Chronic obstructive pulmonary disease, unspecified COPD type ([facility]) Inhale 2 puffs every 4 (four) hours if needed for shortness of breath or wheezing 54 g 0 03/29/2023 06/27/2023 Active Start: 10-31-2018 take 1 puff(s) by in halation every six hours as needed VENTOLIN HFA 90 mcg/actuation inhaler Inhale 1 puff every 6 (six) hours as needed. 0 10/31/2018 Active albuterol 0.833 mg/ml / ipratropium bromide 0.167 mg/ml inhalation solution (3 sources) Anticholinergic, beta2-Adrenergic Agonist Start: 04-27-2023 take 3 mL by inhalation every four hours ipratropium-albuteroL (DUONEB) 0.5 mg-3 mg(2.5 mg base)/3 mL nebulizer Indications: Stage 4 very severe COPD by GOLD classification ([facility]) Inhale 3 mL by nebulization every 4 (four) hours. 1620 mL 3 04/27/2023 Active Start: 05-09-2022 End: 04-27-2023 take 3 mL by inhalation four times daily ipratropium-albuteroL (DUONEB) 0.5 mg-3 mg(2.5 mg base)/3 mL nebulizer Indications: Stage 4 very severe COPD by GOLD classification ([facility]) Inhale 3 mL by nebulization 4 (four) times a day. 1080 mL 3 05/09/2022 04/27/2023 Discontinued (Reorder) ascorbic acid 1000 mg oral tablet (3 sources) Vitamin C take 1 tablet by sony th in the morning ascorbic acid, vitamin C, (VITAMIN C) 1000 mg tablet Take 1 tablet (1,000 mg total) by mouth in the morning. 0 Active Vitamin C Active Aspir-81 (1 source) Aspir-81 Active atorvastatin 80 mg oral tablet (5 sources) HMG-CoA Reductase Inhibitor Start: End: 5 take 1 tablet by mouth in the morning atorvastatin (Lipitor) 80 MG tablet Indications: Mixed hyperlipidemia ([facility]) Take 1 tablet (80 mg) by mouth in the morning. 90 tablet 1 04/18/2023 04/17/2024 Active End: 04-18-2023 take 1 tablet by mouth once daily atorvastatin (LIPITOR) 40 mg tablet Take 1 tablet (40 mg total) by mouth nightly. 0 Active Atorvastatin Timothy cium Not-Taking azithromycin 250 mg oral tablet (2 sources) Macrolide Antimicrobial Start: 04-04-2023 End: 06-27-2023 azithromycin (ZITHROMAX) 250 mg tablet Indications: Chronic obstructive pulmonary disease, unspecified COPD type (CMS-HCC) , Mucopurulent chronic bronchitis (CMS-HCC) 1 tablet PO on Monday, Monday and Monday 36 tablet 3 04/04/2023 06/27/2023 Active [id number]-[id number] rofolate-B6 5,000 mcg-1,360 mcg DFE-2.5 mg tablet,chewable (2 sources) C75-kmxuchfcbuta y drofolate-B6 5,000 mcg-1,360 mcg DFE-2.5 mg tablet,chewable Chew 5,000 mcg and swallow nightly. 0 Active 60 actuat budesonide 0.16 mg/actuat / formoterol fumarate 0.0045 mg/actuat metered dose inhaler (7 sources) Corticosteroid, beta2-Adrenergic Agonist Start: 04-10-2023 End: 07-09-2023 take 2 puff(s) by inhalation in the morning budesonide-formot cornelius (Symbicort) 160-4.5 MCG/ACT inhaler Indications: Chronic obstructive pulmonary disease, unspecified COPD type (CMS/HCC) , Panlobular emphysema (CMS/HCC) Inhale 2 puffs in the morning and 2 puffs before bedtime. 3 each 0 04/10/2023 07/09/2023 Active Start: 12-11-2018 Symbicort Star t Date: 12/11/18 Status: Ordered End: 06-08-2023 take 2 puff(s) by inhalation in the morning budesonide-formoteroL (SYMBICORT) 160-4.5 mcg/actuation inhaler Inhale 2 puffs in the morning and 2 puffs before bedtime. 0 06/08/2023 Discontinued (Therapy completed) take 2 puff(s) by in halation in the morning budesonide-formoteroL (SYMBICORT) 160-4.5 mcg/actuation inhaler Inhale 2 puffs in the morning and 2 puffs before bedtime. 0 Active Symbicort Active cholecalciferol 0.05 mg oral capsule (1 source) Vitamin D take 1 capsule by mouth once daily cholecalciferol (Vitamin D-3) 50 MCG (2000 UT) capsule Take 1 capsule by mouth 1 (one) time each day at the same time. 0 Active cholecalciferol, vitamin D3, (VITAMIN D3 ORAL) (2 sources) take 250 ug by mouth in the morning cholecalciferol, vitamin D3, (VITAMIN D3 ORAL) Take 250 mcg by mouth in the morning. 0 Active Co Q-10 (1 source) Co Q-10 Active donepezil hydrochloride 5 mg oral tablet (4 sources) Start: 01-07-2023 End: 01-07-2024 take 2 tablets by mouth once daily donepeziL (ARICEPT) 5 mg tablet Take 2 tablets (10 mg total) by mouth nightly. 0 01/07/2023 01/07/2024 Active Start: 01-07-2023 End: 02-28-2024 donepezil 5 mg Tab Refills(s ) 0 Start Date: 04/19/23 Status: Ordered 30 actuat fluticasone furoate 0.2 mg/actuat / vilanterol 0.025 mg/actuat dry powder inhaler (1 source) Corticosteroid, beta2-Adrenergic Agonist take 1 puff(s) by inhalation in the morning fluticasone furoate-vilanteroL (BREO ELLIPTA) 200-25 mcg/dose blister with device Inhale 1 puff in the morning. 0 Active levothyroxine sodium 0.088 mg oral tablet (7 sources) l-Thyroxine Start: 2022 End: 2023 levothyroxine (Synthroid, Levoxyl) 88 MCG tablet Indications: Acquired hypothyroidism (CMS/HCC) TAKE 1 TABLET EVERY MORNINGBEFORE A MEAL 90 tablet 0 04/18/2023 Active Start: 03-22-2022 levothyroxine 125 mcg (0.125 mg) Tab Refills(s) 0 Start Date: 03/22/22 Status: Ordered Start: 06-24-2019 levothyroxine (SYNTHROID, LEVOTHROID) 125 MCG tablet Take 100 mcg by mouth every morning before breakfast. Take on empty stomach 0 06/24/2019 Active Start: 06-24-2019 take 1 tablet by sony th once daily before breakfast levothyroxine (SYNTHROID, LEVOTHROID) 125 MCG tablet Take 1 tablet (125 mcg total) by mouth every morning before breakfast. Take on empty stomach 0 06/24/2019 Active Lisinopril (1 source) Angiotensin Converting Enzyme Inhibitor Lisinopril Active lutein 20 mg oral capsule (1 source) take 1 capsule by mouth once daily Lutein 20 MG capsule Take 1 capsule by mouth 1 (one) time each day at the same time. 0 Active 24 hr metoprolol succinate 100 mg extended release oral tablet (8 sources) beta-Adrenergic Ace Start: 2 End: 4 take 1 tablet by mouth every twenty-four hours in the morning metoprolol succinate XL (TOPROL XL) 100 mg 24 hr tablet Indications: Coronary artery disease involving [place] coronary artery of [place] heart without angina pectoris Take 1 tablet (100 mg total) by mouth in the morning. 90 tablet 3 10/12/2021 Active Start: 12-11-2018 take 1 tablet by sony th once daily metoprolol 50 mg ER Tab 50 mg = 1 tab(s), Oral, Daily Start Date: 12/11/18 Status: Ordered Metoprolol Tartr ate Active Misc Natural Products (Neuriva) capsule (1 source) take 1 capsule by mouth once daily Misc Natural Products (Neuriva) capsule Take by mouth Daily. 0 Active omega-3 fatty acids-fish oil 300-1,000 mg capsule (2 sources) take 2 capsules by mouth in the morning omega-3 fatty acids-fish oil 300-1,000 mg capsule Take 2 capsules (2 g total) by mouth in the morning. 0 Active predniSONE 20 mg oral tablet (8 sources) Start: 06-08-2023 End: 06-13-2023 take 2 tablets by mouth in the morning predniSONE (DELTASONE) 20 mg tablet Take 2 tablets (40 mg total) by mouth in the morning for 5 days. 10 tablet 0 06/08/2023 06/13/2023 Active Start: 03-24-2023 End: 04-27-2023 predniSONE (DELTASONE) 10 mg tablet Take 4 tablets PO x 2 days, 3 tablets PO x 3 days, 2 tablets PO x 3 days and then resume maintenance dose 23 tablet 0 03/24/2023 04/27/2023 Discontinued Start: 02-03-2023 predniSONE (DE LTASONE) 5 mg tablet Indications: Chronic obstructive pulmonary disease, unspecified COPD type (CMS-HCC) TAKE 1 TABLET EVERY MORNING. 90 tablet 3 02/03/2023 Active Start: 11-18-2022 take 1 tablet by sony th every twenty-four hours predniSONE 20 MG 1 tablet Orally Once a day for 5 days Nov, Active Start: 03-22-2022 predniSONE 5 m g Tab Refills(s) 0 Start Date: 03/22/22 Status: Ordered primidone 50 mg oral tablet (6 sources) Anti-epileptic Agent Start: 08-24-2022 primidone 50 mg Tab Refills(s) 0 Start Date: 08/24/22 Status: Ordered primidone (Mysol ine) 50 MG tablet Take by mouth every 12 (twelve) hours. Take 100mg in the morning and 50mg at night 0 Active Primidone Active simvastatin 40 mg oral tablet (3 sources) HMG-CoA Reductase Inhibitor Start: 12-11-2018 take 1 tablet by mouth once daily simvastatin 40 mg Tab 40 mg = 1 tab(s), Oral, Daily Start Date: 12/11/18 Status: Ordered Spiriva HandiHaler (1 source) Spiriva HandiHaler Active tamsulosin hydrochloride 0.4 mg oral capsule (8 sources) alpha-Adrenergic Ace Start: 04-19-2023 End: 04-13-2024 take 2 capsules by mouth once daily in the evening tamsulosin 0.4 mg Cap 0.8 mg = 2 cap(s), Oral, qPM, X 90 day(s), # 180 cap(s), Refills(s) 3, Pharmacy: [facility], 175, cm, 04/19/23 10:09:00 EST, Height/Length Dosing, 78.5, kg, 04/19/23 10:09:00 EST, Weight Dosing Start Date: 04/19/23 Stop Date: 04/13/24 Status: Ordered Start: 04-10-2023 End: 07-17-2023 take 1 capsule by mouth every twenty-four hours in the morning tamsulosin (Flomax) 0.4 MG 24 hr capsule Indications: Benign localized prostatic hyperplasia without lower urinary tract symptoms (LUTS) Take 1 capsule (0.4 mg) by mouth in the morning. 90 capsule 0 04/18/2023 07/17/2023 Active Start: 03-22-2022 End: 03-17-2023 take 1 capsule by mouth twice daily tamsulosin 0.4 mg Cap 0.4 mg = 1 cap(s), Oral, BID, X 90 day(s), # 180 cap(s), Refills(s) 3, Pharmacy: [facility]/pharmacy #[id number], 175, cm, 03/22/22 14:18:00 EST, Height/Length Dosing, 90, kg, 03/22/22 14:18:00 EST, Weight Dosing Start Date: 03/22/22 Stop Date: 03/17/23 Status: Ordered take 1 capsule by [facility] once daily tamsulosin (FLOMAX) 0.4 mg capsule Take 1 capsule (0.4 mg total) by mouth nightly. 0 Active Tamsulosin HCl A ctive ubidecarenone 30 mg oral capsule (3 sources) take 10 capsules by mouth once daily coenzyme Q10 30 mg capsule Take 100 mg by mouth daily. 0 Active take 1 capsule by mouth once jose juan ly coenzyme Q-10 60 MG capsule Take 1 capsule by mouth 1 (one) time each day at the same time. 0 Active Vitamin B Complex (1 source) Vitamin B-Comple x Active vitamin b12 0.5 mg oral tablet (3 sources) Vitamin B12 take 1 tablet by mouth in the morning cyanocobalamin 500 MCG tablet Take 1 tablet (500 mcg total) by mouth in the morning. 0 Active Vitamin D (1 source) Vitamin D Active vitamin e 180 mg oral capsule (4 sources) take 1 capsule by mouth in the morning VITAMIN E, DL,TOCOPHERYL ACET, (VITAMIN E, DL, ACETATE,) 400 unit capsule Take 1 capsule (400 Units total) by mouth in the morning. 0 Active take 1 capsule by mouth once jose juan ly alpha tocopherol (Vitamin E) 100 units capsule Take 1 capsule by mouth 1 (one) time each day at the same time. 0 Active Vitamin E Active Zinc Acetate (1 source) take 1 dose by mouth in the morning Zinc Acetate, Oral, (ZINC ACETATE PO) Take 1 each by mouth in the morning. 0 Active ZINC CITRATE (2 sources) zinc citrate 11 mg tablet,chewable Chew and swallow daily. 0 Active Completed/Discontinued Medications Medication Drug Class(es) Dates Sig (Normalized) Sig (Original) aspirin 81 mg delayed release oral tablet (1 source) Platelet Aggregation Inhibitor, Nonsteroidal Anti-inflammatory Drug End: 04-27-2023 take 1 tablet by mouth in the morning aspirin 81 mg Take 1 tablet (81 mg total) by mouth in the morning. 0 04/27/2023 Discontinued B-complex with vitamin C tablet (1 source) End: 04-27-2023 take 1 tablet by mouth in the morning B-complex with vitamin C tablet Take 1 tablet by mouth in the morning. 0 04/27/2023 Discontinued coffee xt/phosphatidyl serine (NEURIVA ORIGINAL ORAL) (1 source) End: 04-28-2023 coffee xt/phosphatidyl serine (NEURIVA ORIGINAL ORAL) Take by mouth. 0 04/28/2023 Discontinued Problems Active Problems Problem Classification Problem Date Documented Date Episodic/Chronic Abdominal pain (1 source) Abdominal pain Onset: 07-21-2023 Episodic Acute myocardial infarction (4 sources) Myocardial infarction; Translations: [Acute myocardial infarction, unspecified] Onset: 11-12-2022 12-11-2018 Chronic Anxiety disorders (1 source) Anxiety; Translations: [Anxiety disorder, unspecified] Onset: 08-23-2022 08-23-2022 Chronic Asthma (3 sources) Asthma 12-11-2018 Chronic Chronic obstructive pulmonary disease and bronchiectasis (20 sources) Chronic obstructive pulmonary disease with (acute) exacerbation; Translations: [Chronic obstructive pulmonary disease, unspecified] Onset: 05-31-2018 Chronic Coronary atherosclerosis and other heart disease (5 sources) Atherosclerotic heart disease of [place] coronary artery without angina pectoris; Translations: [Coronary arteriosclerosis] Onset: 12-04-2018 08-23-2022 Chronic Disorders of lipid metabolism (6 sources) Pure hypercholesterolemia, unspecified; Translations: [Mixed hyperlipidemia] Onset: 12-04-2018 04-18-2023 Chronic Diverticulosis and diverticulitis (3 sources) Diverticulosis of large intestine; Translations: [Diverticulosis of large intestine without perforation or abscess without bleeding] Onset: 09-23-2019 11-12-2022 Chronic Essential hypertension (3 sources) Essential (primary) hypertension; Translations: [Essential hypertension] Onset: 04-26-2022 04-18-2023 Chronic Genitourinary symptoms and ill-defined conditions (5 sources) Post-micturition incontinence ; Translations: [Dribbling of urine] Onset: 08-23-2022 03-03-2020 Chronic Genitourinary symptoms and ill-defined conditions (4 sources) Nocturia; Translations: [Nocturia] Onset: 11-12-2022 03-03-2020 Episodic Hyperplasia of prostate (12 sources) Benign prostatic hypertrophy with outflow obstruction; Translations: [Benign prostatic hyperplasia with lower urinary tract symptoms] Onset: 03-22-2022 Chronic Menopausal disorders (1 source) Hormone replacement therapy; Translations: [HORMONE REPLACEMENT THERAPY] Onset: 04-26-2022 Episodic Mood disorders (4 sources) Depressive disorder; Translations: [Depression] Onset: 11-12-2022 12-11-2018 Chronic Nutritional deficiencies (1 source) Vitamin D deficiency; Translations: [Vitamin D deficiency, unspecified] Onset: 08-23-2022 08-23-2022 Chronic Occlusion or stenosis of precerebral arteries (6 sources) Bilateral stenosis of carotid arteries; Translations: [Occlusion and stenosis of bilateral carotid arteries] Onset: 10-29-2018 08-23-2022 Chronic Other aftercare (1 source) intermediate accountant (current) use of aspirin; Translations: [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 CURRENT USE OF ASPIRIN] Onset: 04-26-2022 Episodic Other aftercare (1 source) Other intermediate accountant (current) drug therapy; Translations: [OTH 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 CURRENT DRUG THERAPY] Onset: 04-26-2022 Episodic Other and unspecified benign neoplasm (1 source) Personal history of colonic polyps; Translations: [Personal history of colonic polyps] Onset: 07-21-2023 Episodic Other hereditary and degenerative nervous system conditions (1 source) Essential tremor; Translations: [Essential tremor] Onset: 08-23-2022 08-23-2022 Chronic Other lower respiratory disease (5 sources) Shortness of breath; Translations: [SHORTNESS OF BREATH] Onset: 08-18-2021 Episodic Other lower respiratory disease (1 source) Personal history of other diseases of the respiratory system Episodic Other lower respiratory disease (1 source) Wheezing Episodic Other lower respiratory disease (1 source) Cough Onset: 06-08-2023 Episodic Other lower respiratory disease (1 source) Wheezing Onset: 06-08-2023 Episodic Other lower respiratory disease (1 source) Shortness of breath Onset: 06-08-2023 Episodic Other male genital disorders (3 sources) Impotence 12-11-2018 Chronic Other male genital disorders (2 sources) Other male erectile dysfunction; Translations: [Impotence of organic origin] Onset: 08-23-2022 08-23-2022 Chronic Other nervous system disorders (1 source) Other secondary parkinsonism; 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] Onset: 03-08-2023 Chronic Other nervous system disorders (4 sources) Tremor; Translations: [Tremor, unspecified] Onset: 11-12-2022 12-11-2018 Episodic Other screening for suspected conditions (not mental disorders or infectious disease) (11 sources) Raised prostate specific antigen; Translations: [Elevated prostate specific antigen [PSA]] Onset: 09-03-2019 Episodic Other upper respiratory disease (1 source) Vocal cord paralysis; Translations: [Paralysis of vocal cords and larynx, unspecified] Onset: 08-23-2022 08-23-2022 Chronic Other upper respiratory disease (1 source) Disorder of vocal cord; Translations: [Paralysis of vocal cords and larynx, unilateral] Onset: 08-23-2022 08-23-2022 Chronic Regional enteritis and ulcerative colitis (1 source) Inflammatory pseudotumor of colon; Translations: [Inflammatory polyps of colon without complications] Onset: 08-23-2022 08-23-2022 Chronic Residual codes; unclassified (4 sources) Sleep apnea Onset: 06-08-2023 12-11-2018 Chronic Residual codes; unclassified (1 source) Sleep apnea, unspecified; Translations: [SLEEP APNEA UNSPECIFIED] Onset: 04-26-2022 Chronic Residual codes; unclassified (5 sources) Obstructive sleep apnea syndrome; Translations: [Obstructive sleep apnea (adult) (pediatric)] Onset: 05-07-2020 08-23-2022 Chronic Residual codes; unclassified (1 source) Obstructive sleep apnea (adult) (pediatric); Translations: [Obstructive sleep apnea (adult) (pediatric)] Onset: 05-07-2020 Chronic Residual codes; unclassified (1 source) Other amnesia; Translations: [Other amnesia] Onset: 05-17-2023 Episodic Respiratory failure; insufficiency; arrest (adult) (9 sources) Dependence on supplemental oxygen; Translations: [Chronic respiratory failure] Onset: 05-07-2020 11-12-2022 Chronic Substance-related disorders (5 sources) Smoker; Translations: [Tobacco user] Onset: 08-23-2022 03-03-2020 Chronic Comment on above: Added secondary to d ocumentation in Social History. Thyroid disorders (3 sources) Acquired hypothyroidism; Translations: [Hypothyroidism, unspecified] Onset: 08-23-2022 04-18-2023 Chronic Transient cerebral ischemia (3 sources) Amaurosis fugax; Translations: [Amaurosis fugax] Onset: 10-29-2018 11-12-2022 Chronic Unclassified (1 source) CONTACT W/AND (SUSP) EXPOS COVID-19; Translations: [CONTACT W/AND (SUSP) EXPOS COVID-19] Onset: 01-03-2022 Past or Other Problems Problem Classification Problem [...] LT LOW LEG INIT] Onset: 09-08-2021 Episodic Other and unspecified benign neoplasm (1 source) Benign neoplasm of soft tissue; Translations: [Melanocytic nevi, unspecified] Onset: 08-23-2022 08-23-2022 Episodic Other and unspecified benign neoplasm (3 sources) Adenomatous polyp of colon ; Translations: [Benign neoplasm of descending colon] Onset: 09-23-2019 11-12-2022 Episodic Other connective tissue disease (1 source) Achillodynia; Translations: [Achilles tendinitis, unspecified leg] Onset: 08-23-2022 08-23-2022 Episodic Other upper respiratory disease (1 source) Hoarse; Translations: [Dysphonia] Onset: 08-23-2022 08-23-2022 Episodic Residual codes; unclassified (1 source) Amnesia; Translations: [Other amnesia] Onset: 08-23-2022 08-23-2022 Episodic Screening and history of mental health and substance abuse codes (3 sources) Personal history of nicotine dependence; Translations: [Tobacco use and exposure - finding] Onset: 05-31-2018 01-12-2023 Episodic Superficial injury; contusion (3 sources) Abrasion, left lower leg, initial encounter; Translations: [ABRASION LEFT LOWER LEG INITIAL ENC] Onset: 09-04-2021 Episodic Unclassified (2 sources) Onset: 09-03-2019 09-03-2019 Results Test Name Value Interpretation Reference Range Facility XR ABDOMEN 2 VIEWon 06-19-19 24 XR ABDOMEN 2 VIEW FINDINGS: Small to moderate (normal) volume of stool normally distributed throughout the abdomen and pelvis. Air-filled non-distended small bowel noted mid abdomen, greatest involvement right of midline, non-specific appearance. No free intraperitoneal air. No biliary or urinary tract stones. Extensive aorto-iliac arterial calcifications. IMPRESSION: Normal volume of colon stool, no obstruction. TRANSCRIBED BY: ELECTRONICALLY SIGNED BY: Austen Maria MD Normal Not Available Ambulatory Visit Summaryon 0 04-19-2023 Ambulatory Visit Summary LYSSA FROST :1950 Visit Date:04/19/2023 Ambulatory Visit Instructions Your Diagnosis Elevated PSA BPH with urinary obstruction Your Care Team Attending Physician - Rodriguez WILSON, Bree Valdez Primary Care Physician - ABDIAS WILSON, SIOBHAN Bernal This Is Your Medications List tamsulosin (tamsulosin 0.4 mg Cap) Contact prescribing physician if questions or concerns albuterol (albuterol 0.083% Inh Lilliana 3 mL) budesonide-formoterol (Symbicort) donepezil (donepezil 5 mg Tab) levothyroxine (levothyroxine 125 mcg (0.125 mg) Tab) metoprolol (metoprolol 50 mg ER Tab) predniSONE (predniSONE 5 mg Tab) primidone (primidone 50 mg Tab) simvastatin (simvastatin 40 mg Tab) Procedures Performed Carotid endarterectomy (12/22/2018), Cystoscopy (09/28/2012), Eye surgery, Hand Surgery, Nose Surgery, Placement of stent in cardiac conduit, Repair of inguinal hernia. Discharge Vitals Heart Rate (Peripheral) 80 Respiratory Rate 16 Blood Pressure 132/80 Height 175 cm Height 69 in Weight 78.5 kg Weight 172.7 lb BMI 25.63 What to do next Scheduled Follow-Up Appointments Monday 10:45 AM EST With: Bree Frias MD Where: [facility] Patient Educationon 04-19-19 24 Patient Education Oncology Prostate Cancer Screening Prostate cancer screening is testing that is done to check for the presence of prostate cancer in men. The prostate gland is a walnut-sized gland that is located below the bladder and in front of the rectum in males. The function of the prostate is to add fluid to semen during ejaculation. Prostate cancer is one of the most common types of cancer in men. Who should have prostate cancer screening? Screening recommendations vary based on age and other risk factors, as well as between the professional organizations who make the recommendations. In general, screening is recommended if: ? You are age 50 to 70 and have an average risk for prostate cancer. You should talk with your health care provider about your need for screening and how often screening should be done. Because most prostate cancers are slow growing and will not cause , screening in this age group is generally reserved for men who have a 10- to 15-year life expectancy. ? You are younger than age 50, and you have these risk factors: ? Having a father, brother, or uncle who has been diagnosed with prostate cancer. The risk is higher if your family member's cancer occurred at an early age or if you have multiple family members with prostate cancer at an early age. ? Being a male who is Black or is of Robi or sub-Saharan descent. In general, screening is not recommended if: ? You are younger than age 40. ? You are between the ages of 40 and 49 and you have no risk factors. ? You are 70 years of age or older. At this age, the risks that screening can cause are greater than the benefits that it may provide. If you are at high risk for prostate cancer, your health care provider may recommend that you have screenings more often or that you start screening at a younger age. How is screening for prostate cancer done? The recommended prostate cancer screening test is a blood test called the prostate-specific antigen (PSA) test. PSA is a protein that is made in the prostate. As you age, your prostate naturally produces more PSA. Abnormally high PSA levels may be caused by: ? Prostate cancer. ? An enlarged prostate that is not caused by cancer (benign prostatic hyperplasia, or BPH). This condition is very common in older men. ? A prostate gland infection (prostatitis) or urinary tract infection. ? Certain medicines such as male hormones (like testosterone) or other medicines that raise testosterone levels. A rectal exam may be done as part of prostate cancer screening to help provide information about the size of your prostate gland. When a rectal exam is performed, it should be done after the PSA level is drawn to avoid any effect on the results. Depending on the PSA results, you may need more tests, such as: ? A physical exam to check the size of your prostate gland, if not done as part of screening. ? Blood and imaging tests. ? A procedure to remove tissue samples from your prostate gland for testing (biopsy). This is the only way to know for certain if you have prostate cancer. What are the benefits of prostate cancer screening? ? Screening can help to identify cancer at an early stage, before symptoms start and when the cancer can be treated more easily. ? There is a small chance that screening may lower your risk of dying from prostate cancer. The chance is small because prostate cancer is a slow-growing cancer, and most men with prostate cancer from a different cause. What are the risks of prostate cancer screening? The main risk of prostate cancer screening is diagnosing and treating prostate cancer that would never have caused any symptoms or problems. This is called overdiagnosisand overtreatment. PSA screening cannot tell you if your PSA is high due to cancer or a different cause. A prostate biopsy is the only procedure to diagnose prostate cancer. Even the results of a biopsy may not tell you if your cancer needs to be treated. Slow-growing prostate cancer may not need any treatment other than monitoring, so diagnosing and treating it may cause unnecessary stress or other side effects. Questions to ask your health care provider ? When should I start prostate cancer screening? ? What is my risk for prostate cancer? ? How often do I need screening? ? What type of screening tests do I need? ? How do I get my test results? ? What do my results mean? ? Do I need treatment? Where to find more information ? The [place] [employer]: www.cancer.org ? [employer]: www.auanet.org Contact a health care provider if: ? You have difficulty urinating. ? You have pain when you urinate or ejaculate. ? You have blood in your urine or semen. ? You have pain in your back or in the area of your prostate. Summary ? Prostate cancer is a common type of cancer in men. The prostate gland is located below the bladder and in front of the rectum. This gland adds flu (more content not included)... Normal [facility] Screenson 04-19-2023 Screens [id number]# 1.00TIFF Normal [facility] Screens [id number] .00TIFF Normal [facility] Urology Office/Clinic Noteon 04-19-2023 Urology Office/Clinic Note Chief Complaint 6m PSA HPI Staff 8 month F/U with PSA Previous DX; BPH, Elevated PSA *Tamsulosin 0.4mg QD therapy PSA 09/07/22- 3.2 & 31% 03/21/23- 3.8 & 25.0% Denies pain/burning and visible blood in urine. Occasional frequency during the day, depends on fluid intake. 2x/night. Denies complaints with urinary stream. States as long as he is taking Tamsulosin no urinary symptoms. History of Present Illness Tests reviewed: reviewed UA, PSAs I have reviewed the previous health record information and history for this patient from DILIP Calvin and Dr. Goyal I have reviewed and verified the staff HPI to be accurate for this encounter. Review of Systems PHQ Score Initial Depression Screen Score: 0 SCORE ROS - Provider Constitutional: denies weight loss, denies hot flashes. Eyes: denies eye problems. Gastrointestinal: denies nausea, denies vomiting. Cardiovascular: denies chest pain or angina. Integumentary: no dryness Musculoskeletal: denies musculoskeletal symptoms. ENMT: denies otolaryngeal symptoms. Respiratory: no shortness of breath. Heme/Lymph: denies easy bleeding tendency, denies easy bruising tendency. Psychiatric: no confusion, no anxiety. Genitourinary: See HPI. Physical Exam Vitals & Measurements HR: 80(Peripheral) RR: 16 BP: 132/80 HT: 69 in HT: 175 cm WT: 78.5 kg WT: 172.7 lb BMI: 25.63 General Appearance: alert, no distress, well nourished, well developed male. Genitourinary: Flank Pain: none. Bladder: nonpalpable. Assessment/Plan Former Dr. Goyal pt being followed by JUAN JOSÉ, here for follow up of elevated PSA and BPH with LUTS Here with 1. Elevated PSA (R97.20: Elevated prostate specific antigen [PSA]) PSA 03/31/17 - 2.95 05/11/18 - 4.70 01/18/19 - 2.20 & 27.3% 12/19/19 - 3.37 03/08/21 - 4.14 03/08/22 - 4.58 09/07/22 - 3.2 & 31% 03/21/23 - 3.8 & 25% Hx of PSA fluctuation. No prior prostate biopsies. Discussed PSA level w/ pt, remains stable overall, still lower than peak in 2019. Discussed potential etiologies for elevated PSA. Educated pt percent free high which is favorable. Discussed management options going forward including MRI or continued surveillance. Patient would like to continue to monitor at this time. The patient was urged not to ride his bike, masturbate, have sex or undergo a ROXANE for at least 4 days prior to any repeat PSA testing. -PSA in 1 yr Ordered: 25436 Measure Post Void residual urine and/or bladder capacity by US- non-imaging Body Mass Index (BMI) documented 3008F Current tobacco non-user 1036F Depression Screening Negative 3352F Discharge medications reconciled with current medications in outpatient record 1111F Most recent diastolic blood pressure 80-89 mm Hg 3079F Patient screen for fall risk: no falls in last year or 1 fall with no injury in last year 1101F PSA Free & Total Systolic BP 130-139 mm Hg (Most Recent) 3075F 2. BPH with urinary obstruction (N40.1: Benign prostatic hyperplasia with lower urinary tract symptoms) IPSS 11 (8). PVR today 176 mL - done at end of visit. UA today negative for blood and infection. Taking Tamsulosin 0.4mg qPM. States he has mild urgency. Advised pt he can taking Tamsulosin 0.8mg qPM. Discussed management options including additional medications, behavioral modifications and further workup for outlet procedures. He would like to continue with optimizing medical therapy at this time of tamsulosin. -Increased Tamsulosin from 0.4mg to 0.8mg qPM. New rx sent. Risk benefits discussed -Timed voids q3hrs, avoid bladder irritants Ordered: Urnls Dip Stick Auto w/o Microscopy POC 82249 3. Impotence (N52.9: Male erectile dysfunction, unspecified) CHUN 20 - has desire. Discussed potential further workup including testosterone however good libido. Also discussed overall etiology and recommend heart health diet. Declined further discussion of treatment options at this time. -Patient to call us if he changes his mind to discuss treatment options including medications, ROSE and surgery Orders: tamsulosin, 0.8 mg = 2 cap(s), Oral, qPM, X 90 day(s), # 180 cap(s), Refills(s) 3, Pharmacy: [facility], 175, cm, 04/19/23 10:09:00 EST, Height/Length Dosing, 78.5, kg, 04/19/23 10:09:00 EST, Weight Dosing Follow-up With When Contact Information Rodriguez WILSON, Bree Valdez, URL, [facility] [address] [place] [address]- [phone] Additional Instructions: 1 yr w/ PSA Patient Education Prostate Cancer Screening Edwige Bob, personally scribed for Dr. Frias on 04/19/2023 10:45:09. . Documentation recorded by the diibEdwige saini, accurately reflects the services(s) I performed and decisions made by me. Authenticated by Dr. Frias on 04/19/2023 17:36:19. Problem List/Past Medical History Ongoing Asthma BPH with urinary obstruction Depression Elevated PSA Enlarged prostate with urinary obstruction Im (more content not included)... Normal [facility] Comment on above: Result Comment: Elec tronically Signed By: Bree Frias MD\.br\Date and Time Signed: 04/19/23 17:36 EST\.br\Electronically Co-Signed By: Edwige Padron.br\Date and Time Co-Signed: 04/19/23 10:48 EST Lab Reportson 03-24-2023 Lab Reports [id number] .00TIFF Normal [facility] CT BRAIN WO CONTon CT BRAIN WO [...] Parisi MD on 03/08/2023 4:12 PM Normal [facility] Lab Reportson 11-01-2022 Lab Reports [id number] .00CD:127 Normal [facility] Screenson 08-26-2022 Screens [id number] 1.00CD:127 Normal [facility] Patient Educationon 08-25-19 Patient Education Urology Transurethral [...] including vitamins, herbs, eye drops, creams, and vvzn-ryn-qkaxgci medicines. ? Any problems you or family [...] tells you to take them. ? Taking mcgp-yog-fiyqbxt medicines, vitamins, herbs, and supplements. Surgery safety [...] health care (more content not included)... Normal [facility] Urology Office/Clinic Noteon 08-24-2022 Urology Office/Clinic Note [...] should he handle this? He uses the [facility] mail order. --I've never prescribed that many [...] PSA prior. Follow-up With When Contact Information SIOBHAN KRAUSE PA-C, URL [address] [place] [address] Additional Instructions: Patient Education Transurethral Resection of the Prostate Documentation recorded by the scribyeny Parker accurately reflects the services(s) I performed and decisions made by me. Authenticated by Siobhan Krause PA-C on 08/24/2022 16:16:14. IMariam, personally scribed for Siobhan Krause PA-C on [...] BNT-[id number] va (more content not included)... Normal [facility] Comment on above: Result Comment: Elec tronically Signed By: SIOBHAN KRAUSE PA-C\.br\Date and Time Signed: 08/24/22 16:16 EDT\.br\Electronically Co-Signed By: Mariam Parker\.br\Date and Time Co-Signed: 08/24/22 15:31 EDT BNPon 04-22-2022 Natriuretic peptide B (Bld) [Mass/Vol] 289.0 pg/mL Normal <=900.0 [facility] Comment on above: Performed By: #### B FORMULA WEIGHER, CMP, CMADM #### [facility] [address] [place] [address] Dr. Oliver Thornton CARDIAC STEPHANIA ADMITon 023 CK [Catalytic activity/Vol] 224 U/L Normal 39-308 [facility] Comment on above: Performed By: #### B FORMULA WEIGHER, CMP, CMADM #### [facility] [address] [place] [address] Dr. Oliver Thornton CK.MB [Mass/Vol] 12.03 ng/mL Critically high <=3.60 [facility] Comment on above: Performed By: #### B FORMULA WEIGHER, CMP, CMADM #### [facility] [address] [place] [address] Dr. Oliver Thornton HSTROP 8.3 pg/mL Normal 4.0-76.1 [facility] Comment on above: Result Comment: CUT- OFF POINTS HAVE BEEN ESTABLISHED BASED ON THE FOURTH UNIVERSAL DEFINITIONS OF MYOCARDIAL INFARCTION. THE UPPER REFERENCE LIMIT (URL) OF TROPONIN, DEFINED THE 99TH PERCENTILE OF cTnI DISTRIBUTION IN A REFERENCE POPULATION, HAS BEEN CONFIRMED THE DECISION THRESHOLD FOR GA DIAGNOSIS. Performed By: #### B FORMULA WEIGHER, CMP, CMADM #### [facility] [address] [place] [address] Dr. Oliver Thornton KARON 149 ng/mL Critically high 16-96 [facility] Comment on above: Performed By: #### B FORMULA WEIGHER, CMP, CMADM #### [facility] [address] [place] [address] Dr. Oliver Thornton CBC AUTO DIFFon 04-22-2022 BASO # 0.0 103/ul Normal 0.0-0.1 [facility] Comment on above: Performed By: #### C BC #### [facility] [address] [place] [address] Dr. Oliver Thornton Basophils/100 WBC (Bld) 0.3 % Normal 0.2-2.0 [facility] Comment on above: Performed By: #### C BC #### [facility] [address] [place] [address] Dr. Oliver Thornton EO # 0.3 103/ul Normal 0.0-0.7 [facility] Comment on above: Performed By: #### C BC #### [facility] [address] [place] [address] Dr. Oliver Thornton Eosinophils/100 WBC (Bld) 2.9 % Normal 0.9-7.0 [facility] Comment on above: Performed By: #### C BC #### [facility] [address] [place] [address] Dr. Oliver Thornton Erythrocyte distribution width (RBC) [Ratio] 12.5 % Normal 11.0-15.0 [facility] Comment on above: Performed By: #### C BC #### [facility] [address] [place] [address] Dr. Oliver Thornton Hematocrit (Bld) [Volume fraction] 45.5 % Normal 42.0-54.0 [facility] Comment on above: Performed By: #### C BC #### [facility] [address] [place] [address] Dr. Oliver Thornton Hemoglobin (Bld) [Mass/Vol] 14.9 g/dL Normal 14.0-18.0 [facility] Comment on above: Performed By: #### C BC #### [facility] [address] [place] [address] Dr. Oliver Thornton IG # 0.12 10e3/ul Critically high 0.00-0.[address] [facility] Comment on above: Performed By: #### C BC #### [facility] [address] [place] [address] Dr. Oliver Thornton IG % 1.2 % Critically high 0.0-0.5 [facility] Comment on above: Performed By: #### C BC #### [facility] [address] [place] [address] Dr. Oliver Thornton LYMPH # 2.9 103/ul Normal 1.2-3.8 [facility] Comment on above: Performed By: #### C BC #### [facility] [address] [place] [address] Dr. Oliver Thornton Lymphocytes/100 WBC (Bld) 27.7 % Normal 20.5-60.0 [facility] Comment on above: Performed By: #### C BC #### [facility] [address] [place] [address] Dr. Oliver Thornton MANUAL DIFF REQ NO Normal [facility] Comment on above: Performed By: #### C BC #### [facility] [address] [place] [address] Dr. Oliver Thornton MCH (RBC) [Entitic mass] 32.0 pg Normal 25.9-34.0 [facility] Comment on above: Performed By: #### C BC #### [facility] [address] [place] [address] Dr. Oliver Thornton MCHC (RBC) [Mass/Vol] 32.7 g/dL Normal 29.9-35.2 [facility] Comment on above: Performed By: #### C BC #### [facility] [address] [place] [address] Dr. Oliver Thornton MCV (RBC) [Entitic vol] 97.8 fL Critically high 80.0-94.0 [facility] Comment on above: Performed By: #### C BC #### [facility] [address] [place] [address] Dr. Oliver Thornton MONO # 0.9 103/ul Critically high 0.3-0.8 [facility] Comment on above: Performed By: #### C BC #### [facility] [address] [place] [address] Dr. Oliver Thornton Monocytes/100 WBC (Bld) 8.6 % Normal 1.7-12.0 [facility] Comment on above: Performed By: #### C BC #### [facility] [address] [place] [address] Dr. Oliver Thornton NEUT # 6.2 103/ul Normal 1.4-6.5 [facility] Comment on above: Performed By: #### C BC #### [facility] [address] [place] [address] Dr. Oliver Thornton Neutrophils/100 WBC (Bld) 59.3 % Normal 43.0-75.0 [facility] Comment on above: Performed By: #### C BC #### [facility] [address] [place] [address] Dr. Oliver Thornton Platelet mean volume (Bld) [Entitic vol] 10.2 fL Normal 9.5-13.5 [facility] Comment on above: Performed By: #### C BC #### [facility] [address] [place] [address] Dr. Oliver Thornton PLT 239 103/ul Normal 150-450 [facility] Comment on above: Performed By: #### C BC #### [facility] [address] [address] [address] Oliver Thornton RBC 4.65 106/ul Critically low 4.70-6.10 [facility] Comment on above: Performed By: #### C BC #### [facility] [address] [address] [address] Oliver Thornton WBC 10.4 103/ul Normal 4.0-11.0 [facility] Comment on above: Performed By: #### C BC #### [facility] [address] [address] [address] Oliver Thornton PROF 14(COMP METB)on 023 Albumin [Mass/Vol] 3.8 g/dL Normal 3.4-5.0 [facility] Comment on above: Performed By: #### B FORMULA WEIGHER, CMP, CMADM #### [facility] [address] [address] [address] Oliver Thornton Albumin/Globulin [Mass ratio] 1.2 {ratio} Normal [facility] Comment on above: Performed By: #### B FORMULA WEIGHER, CMP, CMADM #### [facility] [address] [address] [address] Oliver Thornton ALP [Catalytic activity/Vol] 91 U/L Normal 46-116 [facility] Comment on above: Performed By: #### B FORMULA WEIGHER, CMP, CMADM #### [facility] [address] [address] [address] Oliver Thornton ALT [Catalytic activity/Vol] 41 U/L Normal 16-63 [facility] Comment on above: Performed By: #### B FORMULA WEIGHER, CMP, CMADM #### [facility] [address] [place] [address] Dr. Oliver Thornton Anion gap [Moles/Vol] 8.3 mmol/L Normal [facility] Comment on above: Performed By: #### B FORMULA WEIGHER, CMP, CMADM #### [facility] [address] [place] [address] Dr. Oliver Thornton AST [Catalytic activity/Vol] 29 U/L Normal 15-37 [facility] Comment on above: Performed By: #### B FORMULA WEIGHER, CMP, CMADM #### [facility] [address] [address] [address] Oliver Thornton Bilirubin [Mass/Vol] 0.2 mg/dL Normal 0.2-1.0 [facility] Comment on above: Performed By: #### B FORMULA WEIGHER, CMP, CMADM #### [facility] [address] [address] [address] Oliver Thornton Calcium [Mass/Vol] 9.1 mg/dL Normal 8.5-10.1 [facility] Comment on above: Performed By: #### B FORMULA WEIGHER, CMP, CMADM #### [facility] [address] [place] [address] Dr. Oliver Thornton Chloride [Moles/Vol] 104 mmol/L Normal 98-107 [facility] Comment on above: Performed By: #### B FORMULA WEIGHER, CMP, CMADM #### [facility] [address] [place] [address] Dr. Oliver Thornton CO2 [Moles/Vol] 33.6 mmol/L Critically high 21.0-32.0 [facility] Comment on above: Performed By: #### B FORMULA WEIGHER, CMP, CMADM #### [facility] [address] [place] [address] Dr. Oliver Thornton Creatinine [Mass/Vol] 0.99 mg/dL Normal 0.70-1.30 [facility] Comment on above: Performed By: #### B FORMULA WEIGHER, CMP, CMADM #### [facility] [address] [place] [address] Dr. Oliver Thornton EGFR-AF AUSTRALIAN >60 Normal >=60 [facility] Comment on above: Performed By: #### B FORMULA WEIGHER, CMP, CMADM #### [facility] [address] [place] [address] Dr. Oliver Thornton EGFR-NON AF AUSTRALIAN >60 Normal >=60 [facility] Comment on above: Performed By: #### B FORMULA WEIGHER, CMP, CMADM #### [facility] [address] [address] [address] Oliver Thornton Globulin (S) [Mass/Vol] 3.1 g/dL Normal [facility] Comment on above: Performed By: #### B FORMULA WEIGHER, CMP, CMADM #### [facility] [address] [address] [address] Oliver Thornton Glucose [Mass/Vol] 111 mg/dL Critically high 74-106 [facility] Comment on above: Performed By: #### B FORMULA WEIGHER, CMP, CMADM #### [facility] [address] [address] [address] Oliver Thornton Potassium [Moles/Vol] 3.9 mmol/L Normal 3.5-5.1 [facility] Comment on above: Performed By: #### B FORMULA WEIGHER, CMP, CMADM #### [facility] [address] [address] [address] Oliver Thornton Protein [Mass/Vol] 6.9 g/dL Normal 6.4-8.2 [facility] Comment on above: Performed By: #### B FORMULA WEIGHER, CMP, CMADM #### [facility] [address] [address] [address] Oliver Thornton Sodium [Moles/Vol] 142 mmol/L Normal 136-145 [facility] Comment on above: Performed By: #### B FORMULA WEIGHER, CMP, CMADM #### [facility] [address] [address] [address] Oliver Thornton Urea nitrogen [Mass/Vol] 13.0 mg/dL Normal 7.0-18.0 [facility] Comment on above: Performed By: #### B FORMULA WEIGHER, CMP, CMADM #### [facility] [address] [address] [address] Oliver Thornton Urea nitrogen/Creatinine [Mass ratio] 13.1 mg/mg Normal [facility] Comment on above: Performed By: #### B FORMULA WEIGHER, CMP, CMADM #### [facility] [address] [address] [address] Oliver Thornton TROPONIN, HIGH SENSITIVITYon 04-22-2022 HSTROP 8.0 pg/mL Normal 4.0-76.1 [facility] Comment on above: Result Comment: CUT- OFF POINTS HAVE BEEN ESTABLISHED BASED ON THE FOURTH UNIVERSAL DEFINITIONS OF MYOCARDIAL INFARCTION. THE UPPER REFERENCE LIMIT (URL) OF TROPONIN, DEFINED THE 99TH PERCENTILE OF cTnI DISTRIBUTION IN A REFERENCE POPULATION, HAS BEEN CONFIRMED THE DECISION THRESHOLD FOR GA DIAGNOSIS. Performed By: #### H STROPN #### [facility] [address] [address] [address] Oliver Thornton XR CHEST 1 [place] [...] by: LETICIA MARTINEZ Date: 2022-04-22 00:48 Normal [facility] BNPon 12-30-2021 Natriuretic peptide B (Bld) [Mass/Vol] 514.0 pg/mL Normal <=900.0 [facility] Comment on above: Performed By: #### B FORMULA WEIGHER, CMP #### [facility] [address] [place] [address] Dr. Oliver Thornton CBC AUTO DIFFon 12-30-2021 BASO # 0.0 103/ul Normal 0.0-0.1 [facility] Comment on above: Performed By: #### B FORMULA WEIGHER, CMP #### [facility] [address] [place] [address] Dr. Oliver Thornton Basophils/100 WBC (Bld) 0.2 % Normal 0.2-2.0 [facility] Comment on above: Performed By: #### B FORMULA WEIGHER, CMP #### [facility] [address] [place] [address] Dr. Oliver Thornton EO # 0.1 103/ul Normal 0.0-0.7 [facility] Comment on above: Performed By: #### B FORMULA WEIGHER, CMP #### [facility] [address] [place] [address] Dr. Oliver Thornton Eosinophils/100 WBC (Bld) 1.2 % Normal 0.9-7.0 [facility] Comment on above: Performed By: #### B FORMULA WEIGHER, CMP #### [facility] [address] [place] [address] Dr. Oliver Thornton Erythrocyte distribution width (RBC) [Ratio] 12.6 % Normal 11.0-15.0 [facility] Comment on above: Performed By: #### B FORMULA WEIGHER, CMP #### [facility] [address] [place] [address] Dr. Oliver Thornton Hematocrit (Bld) [Volume fraction] 45.2 % Normal 42.0-54.0 [facility] Comment on above: Performed By: #### B FORMULA WEIGHER, CMP #### [facility] [address] [place] [address] Dr. Oliver Thornton Hemoglobin (Bld) [Mass/Vol] 14.9 g/dL Normal 14.0-18.0 [facility] Comment on above: Performed By: #### B FORMULA WEIGHER, CMP #### [facility] [address] [place] [address] Dr. Oliver Thornton IG # 0.06 10e3/ul Critically high 0.00-0.03 [facility] Comment on above: Performed By: #### B FORMULA WEIGHER, CMP #### [facility] [address] [place] [address] Dr. Oliver Thornton IG % 0.6 % Critically high 0.0-0.5 [facility] Comment on above: Performed By: #### B FORMULA WEIGHER, CMP #### [facility] [address] [place] [address] Dr. Oliver Thornton LYMPH # 1.5 103/ul Normal 1.2-3.8 [facility] Comment on above: Performed By: #### B FORMULA WEIGHER, CMP #### [facility] [address] [place] [address] Dr. Oliver Thornton Lymphocytes/100 WBC (Bld) 15.7 % Critically low 20.5-60.0 [facility] Comment on above: Performed By: #### B FORMULA WEIGHER, CMP #### [facility] [address] [place] [address] Dr. Oliver Thornton MANUAL DIFF REQ NO Normal [facility] Comment on above: Performed By: #### B FORMULA WEIGHER, CMP #### [facility] [address] [place] [address] Dr. Oliver Thornton MCH (RBC) [Entitic mass] 32.0 pg Normal 25.9-34.0 [facility] Comment on above: Performed By: #### B FORMULA WEIGHER, CMP #### [facility] [address] [place] [address] Dr. Oliver Thornton MCHC (RBC) [Mass/Vol] 33.0 g/dL Normal 29.9-35.2 [facility] Comment on above: Performed By: #### B FORMULA WEIGHER, CMP #### [facility] [address] [place] [address] Dr. Oliver Thornton MCV (RBC) [Entitic vol] 97.0 fL Critically high 80.0-94.0 [facility] Comment on above: Performed By: #### B FORMULA WEIGHER, CMP #### [facility] [address] [place] [address] Dr. Oliver Thornton MONO # 0.7 103/ul Normal 0.3-0.8 [facility] Comment on above: Performed By: #### B FORMULA WEIGHER, CMP #### [facility] [address] [place] [address] Dr. Oliver Thornton Monocytes/100 WBC (Bld) 6.6 % Normal 1.7-12.0 [facility] Comment on above: Performed By: #### B FORMULA WEIGHER, CMP #### [facility] [address] [place] [address] Dr. Oliver Thornton NEUT # 7.4 103/ul Critically high 1.4-6.5 [facility] Comment on above: Performed By: #### B FORMULA WEIGHER, CMP #### [facility] [address] [address] [address] Oliver Thornton Neutrophils/100 WBC (Bld) 75.7 % Critically high 43.0-75.0 [facility] Comment on above: Performed By: #### B FORMULA WEIGHER, CMP #### [facility] [address] [address] [address] Oliver Thornton Platelet mean volume (Bld) [Entitic vol] 9.8 fL Normal 9.5-13.5 [facility] Comment on above: Performed By: #### B FORMULA WEIGHER, CMP #### [facility] [address] [address] [address] Oliver Thornton PLT 209 103/ul Normal 150-450 [facility] Comment on above: Performed By: #### B FORMULA WEIGHER, CMP #### [facility] [address] [place] [address] Dr. Oliver Thornton RBC 4.66 106/ul Critically low 4.70-6.10 [facility] Comment on above: Performed By: #### B FORMULA WEIGHER, CMP #### [facility] [address] [address] [address] Oliver Thornton WBC 9.8 103/ul Normal 4.0-11.0 [facility] Comment on above: Performed By: #### B FORMULA WEIGHER, CMP #### [facility] [address] [place] [address] Dr. Oliver Thornton [facility] SARS-CoV-2 (COVID-19) RNA REGULO+probe Ql (Unsp spec) Not detected Normal NOT DETECTED [facility] Comment on above: Result Comment: When [...] for this test is supported by the [place] of Health and Human Service's declaration that [...] used). Performed By: #### C VDTB #### [facility] [address] [place] [address] Dr. Oliver Thornton PROF 14(COMP METB)on 022 Albumin [Mass/Vol] 3.7 g/dL Normal 3.4-5.0 [facility] Comment on above: Performed By: #### B FORMULA WEIGHER, CMP #### [facility] [address] [place] [address] Dr. Oliver Thornton Albumin/Globulin [Mass ratio] 1.2 {ratio} Normal [facility] Comment on above: Performed By: #### B FORMULA WEIGHER, CMP #### [facility] [address] [place] [address] Dr. Oliver Thornton ALP [Catalytic activity/Vol] 78 U/L Normal 46-116 [facility] Comment on above: Performed By: #### B FORMULA WEIGHER, CMP #### [facility] [address] [place] [address] Dr. Oliver Thornton ALT [Catalytic activity/Vol] 38 U/L Normal 16-63 [facility] Comment on above: Performed By: #### B FORMULA WEIGHER, CMP #### [facility] [address] [place] [address] Dr. Oliver Thornton Anion gap [Moles/Vol] 8.0 mmol/L Normal [facility] Comment on above: Performed By: #### B FORMULA WEIGHER, CMP #### [facility] [address] [place] [address] Dr. Oliver Thornton AST [Catalytic activity/Vol] 29 U/L Normal 15-37 [facility] Comment on above: Performed By: #### B FORMULA WEIGHER, CMP #### [facility] [address] [place] [address] Dr. Oliver Thornton Bilirubin [Mass/Vol] 0.3 mg/dL Normal 0.2-1.0 [facility] Comment on above: Performed By: #### B FORMULA WEIGHER, CMP #### [facility] [address] [place] [address] Dr. Oliver Thornton Calcium [Mass/Vol] 8.7 mg/dL Normal 8.5-10.1 [facility] Comment on above: Performed By: #### B FORMULA WEIGHER, CMP #### [facility] [address] [place] [address] Dr. Oliver Thornton Chloride [Moles/Vol] 103 mmol/L Normal 98-107 [facility] Comment on above: Performed By: #### B FORMULA WEIGHER, CMP #### [facility] [address] [place] [address] Dr. Oliver Thornton CO2 [Moles/Vol] 32.1 mmol/L Critically high 21.0-32.0 [facility] Comment on above: Performed By: #### B FORMULA WEIGHER, CMP #### [facility] [address] [place] [address] Dr. Oliver Thornton Creatinine [Mass/Vol] 0.75 mg/dL Normal 0.70-1.30 [facility] Comment on above: Performed By: #### B FORMULA WEIGHER, CMP #### [facility] [address] [place] [address] Dr. Oliver Thornton EGFR-AF AUSTRALIAN >60 Normal >=60 [facility] Comment on above: Performed By: #### B FORMULA WEIGHER, CMP #### [facility] [address] [place] [address] Dr. Oliver Thornton EGFR-NON AF AUSTRALIAN >60 Normal >=60 [facility] Comment on above: Performed By: #### B FORMULA WEIGHER, CMP #### [facility] [address] [place] [address] Dr. Oliver Thornton Globulin (S) [Mass/Vol] 3.1 g/dL Normal [facility] Comment on above: Performed By: #### B FORMULA WEIGHER, CMP #### [facility] [address] [place] [address] Dr. Oliver Thornton Glucose [Mass/Vol] 101 mg/dL Normal 74-106 [facility] Comment on above: Performed By: #### B FORMULA WEIGHER, CMP #### [facility] [address] [place] [address] Dr. Oliver Thornton Potassium [Moles/Vol] 4.1 mmol/L Normal 3.5-5.1 [facility] Comment on above: Performed By: #### B FORMULA WEIGHER, CMP #### [facility] [address] [place] [address] Dr. Oliver Thornton Protein [Mass/Vol] 6.8 g/dL Normal 6.4-8.2 [facility] Comment on above: Performed By: #### B FORMULA WEIGHER, CMP #### [facility] [address] [place] [address] Dr. Oliver Thornton Sodium [Moles/Vol] 139 mmol/L Normal 136-145 [facility] Comment on above: Performed By: #### B FORMULA WEIGHER, CMP #### [facility] [address] [place] [address] Dr. Oliver Thornton Urea nitrogen [Mass/Vol] 9.0 mg/dL Normal 7.0-18.0 [facility] Comment on above: Performed By: #### B FORMULA WEIGHER, CMP #### [facility] [address] [place] [address] Dr. Oliver Thornton Urea nitrogen/Creatinine [Mass ratio] 12.0 mg/mg Normal [facility] Comment on above: Performed By: #### B FORMULA WEIGHER, CMP #### [facility] [address] [place] [address] Dr. Oliver Thornton TROPONIN, HIGH SENSITIVITYon 12-30-2021 HSTROP 16.4 pg/mL Normal 4.0-76.1 [facility] Comment on above: Result Comment: CUT- OFF POINTS HAVE BEEN ESTABLISHED BASED ON THE FOURTH UNIVERSAL DEFINITIONS OF MYOCARDIAL INFARCTION. THE UPPER REFERENCE LIMIT (URL) OF TROPONIN, DEFINED THE 99TH PERCENTILE OF cTnI DISTRIBUTION IN A REFERENCE POPULATION, HAS BEEN CONFIRMED THE DECISION THRESHOLD FOR GA DIAGNOSIS. Performed By: #### B FORMULA WEIGHER, CMP #### [facility] [address] [place] [address] Dr. Oliver Thornton HSTROP 14.9 pg/mL Normal 4.0-76.1 [facility] Comment on above: Result Comment: CUT- OFF POINTS HAVE BEEN ESTABLISHED BASED ON THE FOURTH UNIVERSAL DEFINITIONS OF MYOCARDIAL INFARCTION. THE UPPER REFERENCE LIMIT (URL) OF TROPONIN, DEFINED THE 99TH PERCENTILE OF cTnI DISTRIBUTION IN A REFERENCE POPULATION, HAS BEEN CONFIRMED THE DECISION THRESHOLD FOR GA DIAGNOSIS. Performed By: #### B FORMULA WEIGHER, CMP #### [facility] [address] [place], [place] [address] Dr. Oliver Thornton XR CHEST 1 Von [...] HUGO DELEON Date: 2021-12-30 13:30 Normal [facility] XR Chest 2 Views*on 10-23-19 22 [...] by Austen Maria on 10/22/2021 1447 Normal [facility] BNPon 08-15-2021 Natriuretic peptide B (Bld) [Mass/Vol] 148.0 pg/mL Normal <=900.0 [facility] Comment on above: Performed By: #### B FORMULA WEIGHER, CMP #### [facility] [address] [place] [address] Dr. Oliver Thornton CBC AUTO DIFFon 08-15-2021 BASO # 0.1 103/ul Normal 0.0-0.1 [facility] Comment on above: Performed By: #### B FORMULA WEIGHER, CMP #### [facility] [address] [place] [address] Dr. Oliver Thornton Basophils/100 WBC (Bld) 0.7 % Normal 0.2-2.0 [facility] Comment on above: Performed By: #### B FORMULA WEIGHER, CMP #### [facility] [address] [place] [address] Dr. Oliver Thornton EO # 0.3 103/ul Normal 0.0-0.7 [facility] Comment on above: Performed By: #### B FORMULA WEIGHER, CMP #### [facility] [address] [place] [address] Dr. Oliver Thornton Eosinophils/100 WBC (Bld) 1.6 % Normal 0.9-7.0 [facility] Comment on above: Performed By: #### B FORMULA WEIGHER, CMP #### [facility] [address] [place] [address] Dr. Oliver Thornton Erythrocyte distribution width (RBC) [Ratio] 12.5 % Normal 11.0-15.0 [facility] Comment on above: Performed By: #### B FORMULA WEIGHER, CMP #### [facility] [address] [place] [address] Dr. Oliver Thornton Hematocrit (Bld) [Volume fraction] 48.0 % Normal 42.0-54.0 [facility] Comment on above: Performed By: #### B FORMULA WEIGHER, CMP #### [facility] [address] [place] [address] Dr. Oliver Thornton Hemoglobin (Bld) [Mass/Vol] 15.6 g/dL Normal 14.0-18.0 [facility] Comment on above: Performed By: #### B FORMULA WEIGHER, CMP #### [facility] [address] [place] [address] Dr. Oliver Thornton IG # 0.80 10e3/ul Critically high 0.00-0.[address] [facility] Comment on above: Performed By: #### B FORMULA WEIGHER, CMP #### [facility] [address] [address] [address] Oliver Thornton IG % 4.8 % Critically high 0.0-0.5 [facility] Comment on above: Performed By: #### B FORMULA WEIGHER, CMP #### [facility] [address] [address] [address] Oliver Thornton LYMPH # 2.2 103/ul Normal 1.2-3.8 [facility] Comment on above: Performed By: #### B FORMULA WEIGHER, CMP #### [facility] [address] [address] [address] Oliver Thornton Lymphocytes/100 WBC (Bld) 13.2 % Critically low 20.5-60.0 [facility] Comment on above: Performed By: #### B FORMULA WEIGHER, CMP #### [facility] [address] [address] [address] Oliver Thornton MANUAL DIFF REQ NO Normal [facility] Comment on above: Performed By: #### B FORMULA WEIGHER, CMP #### [facility] [address] [address] [address] Oliver Thornton MCH (RBC) [Entitic mass] 32.0 pg Normal 25.9-34.0 [facility] Comment on above: Performed By: #### B FORMULA WEIGHER, CMP #### [facility] [address] [address] [address] Oliver Thornton MCHC (RBC) [Mass/Vol] 32.5 g/dL Normal 29.9-35.2 [facility] Comment on above: Performed By: #### B FORMULA WEIGHER, CMP #### [facility] [address] [address] [address] Oliver Thornton MCV (RBC) [Entitic vol] 98.4 fL Critically high 80.0-94.0 [facility] Comment on above: Performed By: #### B FORMULA WEIGHER, CMP #### [facility] [address] [address] [address] Oliver Thornton MONO # 1.1 103/ul Critically high 0.3-0.8 [facility] Comment on above: Performed By: #### B FORMULA WEIGHER, CMP #### [facility] [address] [place] [address] Dr. Oliver Thornton Monocytes/100 WBC (Bld) 6.6 % Normal 1.7-12.0 [facility] Comment on above: Performed By: #### B FORMULA WEIGHER, CMP #### [facility] [address] [place] [address] Dr. Oliver Thornton NEUT # 12.1 103/ul Critically high 1.4-6.5 [facility] Comment on above: Performed By: #### B FORMULA WEIGHER, CMP #### [facility] [address] [place] [address] Dr. Oliver Thornton Neutrophils/100 WBC (Bld) 73.1 % Normal 43.0-75.0 [facility] Comment on above: Performed By: #### B FORMULA WEIGHER, CMP #### [facility] [address] [place] [address] Dr. Oliver Thornton Platelet mean volume (Bld) [Entitic vol] 9.9 fL Normal 9.5-13.5 [facility] Comment on above: Performed By: #### B FORMULA WEIGHER, CMP #### [facility] [address] [place] [address] Dr. Oliver Thornton PLT 229 103/ul Normal 150-450 [facility] Comment on above: Performed By: #### B FORMULA WEIGHER, CMP #### [facility] [address] [place] [address] Dr. Oliver Thornton RBC 4.88 106/ul Normal 4.70-6.10 [facility] Comment on above: Performed By: #### B FORMULA WEIGHER, CMP #### [facility] [address] [place] [address] Dr. Oliver Thornton WBC 16.5 103/ul Critically high 4.0-11.0 [facility] Comment on above: Performed By: #### B FORMULA WEIGHER, CMP #### [facility] [address] [place] [address] Dr. Oliver Thornton PROF 14(COMP METB)on 06-12-2 022 Albumin [Mass/Vol] 3.4 g/dL Normal 3.4-5.0 [facility] Comment on above: Performed By: #### B FORMULA WEIGHER, CMP #### [facility] [address] [place] [address] Dr. Oliver Thornton Albumin/Globulin [Mass ratio] 1.1 {ratio} Normal [facility] Comment on above: Performed By: #### B FORMULA WEIGHER, CMP #### [facility] [address] [address] [address] Oliver Thornton ALP [Catalytic activity/Vol] 100 U/L Normal 46-116 [facility] Comment on above: Performed By: #### B FORMULA WEIGHER, CMP #### [facility] [address] [place] [address] Dr. Oliver Thornton ALT [Catalytic activity/Vol] 58 U/L Normal 16-63 [facility] Comment on above: Performed By: #### B FORMULA WEIGHER, CMP #### [facility] [address] [place] [address] Dr. Oliver Thornton Anion gap [Moles/Vol] 8.8 mmol/L Normal [facility] Comment on above: Performed By: #### B FORMULA WEIGHER, CMP #### [facility] [address] [place] [address] Dr. Oliver Thornton AST [Catalytic activity/Vol] 25 U/L Normal 15-37 [facility] Comment on above: Performed By: #### B FORMULA WEIGHER, CMP #### [facility] [address] [place] [address] Dr. Oliver Thornton Bilirubin [Mass/Vol] 0.6 mg/dL Normal 0.2-1.0 [facility] Comment on above: Performed By: #### B FORMULA WEIGHER, CMP #### [facility] [address] [place] [address] Dr. Oliver Thornton Calcium [Mass/Vol] 8.6 mg/dL Normal 8.5-10.1 [facility] Comment on above: Performed By: #### B FORMULA WEIGHER, CMP #### [facility] [address] [place] [address] Dr. Oliver Thornton Chloride [Moles/Vol] 101 mmol/L Normal 98-107 [facility] Comment on above: Performed By: #### B FORMULA WEIGHER, CMP #### [facility] [address] [place] [address] Dr. Oliver Thornton CO2 [Moles/Vol] 32.4 mmol/L Critically high 21.0-32.0 [facility] Comment on above: Performed By: #### B FORMULA WEIGHER, CMP #### [facility] [address] [place] [address] Dr. Oliver Thornton Creatinine [Mass/Vol] 0.89 mg/dL Normal 0.70-1.30 [facility] Comment on above: Performed By: #### B FORMULA WEIGHER, CMP #### [facility] [address] [place] [address] Dr. Oliver Thornton EGFR-AF AUSTRALIAN >60 Normal >=60 [facility] Comment on above: Performed By: #### B FORMULA WEIGHER, CMP #### [facility] [address] [place] [address] Dr. Oliver Thornton EGFR-NON AF AUSTRALIAN >60 Normal >=60 [facility] Comment on above: Performed By: #### B FORMULA WEIGHER, CMP #### [facility] [address] [place] [address] Dr. Oliver Thornton Globulin (S) [Mass/Vol] 3.1 g/dL Normal [facility] Comment on above: Performed By: #### B FORMULA WEIGHER, CMP #### [facility] [address] [place] [address] Dr. Oliver Thornton Glucose [Mass/Vol] 126 mg/dL Critically high 74-106 [facility] Comment on above: Performed By: #### B FORMULA WEIGHER, CMP #### [facility] [address] [place] [address] Dr. Oliver Thornton Potassium [Moles/Vol] 4.2 mmol/L Normal 3.5-5.1 [facility] Comment on above: Performed By: #### B FORMULA WEIGHER, CMP #### [facility] [address] [place] [address] Dr. Oliver Thornton Protein [Mass/Vol] 6.5 g/dL Normal 6.4-8.2 [facility] Comment on above: Performed By: #### B FORMULA WEIGHER, CMP #### [facility] [address] [place] [address] Dr. Oliver Thornton Sodium [Moles/Vol] 138 mmol/L Normal 136-145 [facility] Comment on above: Performed By: #### B FORMULA WEIGHER, CMP #### [facility] [address] [place] [address] Dr. Oliver Thornton Urea nitrogen [Mass/Vol] 18.0 mg/dL Normal 7.0-18.0 [facility] Comment on above: Performed By: #### B FORMULA WEIGHER, CMP #### [facility] [address] [place] [address] Dr. Oliver Thornton Urea nitrogen/Creatinine [Mass ratio] 20.2 mg/mg Normal [facility] Comment on above: Performed By: #### B FORMULA WEIGHER, CMP #### [facility] [address] [place] [address] Dr. Oliver Thornton PROTIMEon 08-15-2021 INR Coag (PPP) [Relative time] 0.94 {INR} Normal [facility] Comment on above: Performed By: #### B FORMULA WEIGHER, CMP #### [facility] [address] [place] [address] Dr. Oliver Thornton INR GUIDELINES SEE BELOW Normal [facility] Comment on above: Result Comment: LEILANI RED INR: 2.0 - 3.0 CONDITIONS NOT LISTED BELOW 2.5 - 3.5 FOR PROSTHETIC HEART VALVE REPLACEMENT 2.5 - 3.5 RECURRENT THROMBOSIS Performed By: #### B FORMULA WEIGHER, CMP #### [facility] [address] [place] [address] Dr. Oliver Thornton PT Coag (PPP) [Time] 10.2 s Normal 9.0-11.6 [facility] Comment on above: Performed By: #### B FORMULA WEIGHER, CMP #### [facility] [address] [place] [address] Dr. Oliver Thornton PTTon 08-15-2021 aPTT Coag (Bld) [Time] 24.3 s Normal 22.3-36.2 [facility] Comment on above: Performed By: #### B FORMULA WEIGHER, CMP #### [facility] [address] [place], [place] [address] Dr. Oliver Thornton TROPONIN, HIGH SENSITIVITYon 08-15-2021 HSTROP 16.6 pg/mL Normal 4.0-76.1 [facility] Comment on above: Result Comment: CUT- OFF POINTS HAVE BEEN ESTABLISHED BASED ON THE FOURTH UNIVERSAL DEFINITIONS OF MYOCARDIAL INFARCTION. THE UPPER REFERENCE LIMIT (URL) OF TROPONIN, DEFINED THE 99TH PERCENTILE OF cTnI DISTRIBUTION IN A REFERENCE POPULATION, HAS BEEN CONFIRMED THE DECISION THRESHOLD FOR GA DIAGNOSIS. Performed By: #### H STROPN #### [facility] [address] [place], [place] [address] Dr. Oliver Thornton HSTROP 14.8 pg/mL Normal 4.0-76.1 [facility] Comment on above: Result Comment: CUT- OFF POINTS HAVE BEEN ESTABLISHED BASED ON THE FOURTH UNIVERSAL DEFINITIONS OF MYOCARDIAL INFARCTION. THE UPPER REFERENCE LIMIT (URL) OF TROPONIN, DEFINED THE 99TH PERCENTILE OF cTnI DISTRIBUTION IN A REFERENCE POPULATION, HAS BEEN CONFIRMED THE DECISION THRESHOLD FOR GA DIAGNOSIS. Performed By: #### B FORMULA WEIGHER, CMP #### [facility] [address] [place], [place] [address] Dr. Oliver Thornton XR CHEST 1 Von [...] by: MARCELLA HENDERSON Date: 2021-08-15 15:03 Normal [facility] XR Chest 2 Views*on 08-05-19 22 XR [...] by Austen Maria on 08/05/2021 0653 Normal [facility] Complete Blood Counton 07-15 Erythrocyte distribution width (RBC) [Ratio] 12.3 % Normal 11.0-15.0 [facility] Comment on above: Performed By: #### F T4, VITD, TSH reflex FT4, LIPD, CBC, CMP #### [facility] [address] [place], [place] [id number] Hematocrit (Bld) [Volume fraction] 47.3 % Normal 38.5-50.0 [facility] Comment on above: Performed By: #### F T4, VITD, TSH reflex FT4, LIPD, CBC, CMP #### [facility] [address] [place], [place] [id number] Hemoglobin (Bld) [Mass/Vol] 15.5 g/dL Normal 13.0-17.1 [facility] Comment on above: Performed By: #### F T4, VITD, TSH reflex FT4, LIPD, CBC, CMP #### [facility] [address], [place] [id number] MCH (RBC) [Entitic mass] 32.2 pg Normal 27.0-33.0 [facility] Comment on above: Performed By: #### F T4, VITD, TSH reflex FT4, LIPD, CBC, CMP #### [facility] [address], [place] [id number] MCHC (RBC) [Mass/Vol] 32.8 g/dL Normal 32.0-36.0 [facility] Comment on above: Performed By: #### F T4, VITD, TSH reflex FT4, LIPD, CBC, CMP #### [facility] [address], [place] [id number] MCV (RBC) [Entitic vol] 98 fL Normal 80-100 [facility] Comment on above: Performed By: #### F T4, VITD, TSH reflex FT4, LIPD, CBC, CMP #### [facility] [address], [place] [id number] Platelet mean volume (Bld) [Entitic vol] 11.00 fL Normal 7.50-12.50 [facility] Comment on above: Performed By: #### F T4, VITD, TSH reflex FT4, LIPD, CBC, CMP #### [facility] [address], [place] [id number] Platelets (Bld) [#/Vol] 243 10*3/uL Normal 140-400 [facility] Comment on above: Performed By: #### F T4, VITD, TSH reflex FT4, LIPD, CBC, CMP #### [facility] [address], [place] [id number] RBC (Bld) [#/Vol] 4.82 10*6/uL Normal 4.20-5.80 [facility] Comment on above: Performed By: #### F T4, VITD, TSH reflex FT4, LIPD, CBC, CMP #### [facility] [address], [place] [id number] RDW-SD 44.6 fL Normal 37.0-50.0 [facility] Comment on above: Performed By: #### F T4, VITD, TSH reflex FT4, LIPD, CBC, CMP #### [facility] [address], [place] [id number] WBC (Bld) [#/Vol] 10.4 10*3/uL Normal 3.8-11.0 [facility] Comment on above: Performed By: #### F T4, VITD, TSH reflex FT4, LIPD, CBC, CMP #### [facility] [address], [place] [id number] [facility] 07-15-2021 Albumin [Mass/Vol] 4.7 g/dL Normal 3.6-5.1 [facility] Comment on above: Performed By: #### F T4, VITD, TSH reflex FT4, LIPD, CBC, CMP #### [facility] [address], [place] [id number] Albumin/Globulin [Mass ratio] 2.2 {ratio} Normal 1.0-2.5 [facility] Comment on above: Performed By: #### F T4, VITD, TSH reflex FT4, LIPD, CBC, CMP #### [facility] [address], [place] [id number] ALP [Catalytic activity/Vol] 91 U/L Normal 40-129 [facility] Comment on above: Performed By: #### F T4, VITD, TSH reflex FT4, LIPD, CBC, CMP #### [facility] [address], [place] [id number] ALT [Catalytic activity/Vol] 36 U/L Normal 9-46 [facility] Comment on above: Result Comment: 02/03 Female reference range changed. Performed By: #### F T4, VITD, TSH reflex FT4, LIPD, CBC, CMP #### [facility] [address], [place] [id number] Anion gap [Moles/Vol] 16 mmol/L Normal 12-20 [facility] Comment on above: Result Comment: Effe ctive 03/11/2019 reference range changed. Performed By: #### F T4, VITD, TSH reflex FT4, LIPD, CBC, CMP #### [facility] [address], [place] [id number] AST [Catalytic activity/Vol] 37 U/L Normal 10-40 [facility] Comment on above: Performed By: #### F T4, VITD, TSH reflex FT4, LIPD, CBC, CMP #### [facility] [address], [place] [id number] Bilirubin [Mass/Vol] 0.33 mg/dL Normal 0.30-1.20 [facility] Comment on above: Performed By: #### F T4, VITD, TSH reflex FT4, LIPD, CBC, CMP #### [facility] [address], [place] [id number] BUN/CREA 22 Ratio Normal 6-22 [facility] Comment on above: Performed By: #### F T4, VITD, TSH reflex FT4, LIPD, CBC, CMP #### [facility] [address], [place] [id number] Calcium [Mass/Vol] 9.7 mg/dL Normal 8.6-10.2 [facility] Comment on above: Performed By: #### F T4, VITD, TSH reflex FT4, LIPD, CBC, CMP #### [facility] [address], [place] [id number] Chloride [Moles/Vol] 102 mmol/L Normal 98-107 [facility] Comment on above: Performed By: #### F T4, VITD, TSH reflex FT4, LIPD, CBC, CMP #### [facility] [address], [place] [id number] CO2 [Moles/Vol] 28 mmol/L Normal 20-31 [facility] Comment on above: Performed By: #### F T4, VITD, TSH reflex FT4, LIPD, CBC, CMP #### [facility] [address], [place] [id number] Creatinine [Mass/Vol] 0.8 mg/dL Normal 0.7-1.4 [facility] Comment on above: Performed By: #### F T4, VITD, TSH reflex FT4, LIPD, CBC, CMP #### [facility] [address], [place] [id number] eGFRAA 117 mL/min/1.73m2 Normal >60 [facility] Comment on above: Performed By: #### F T4, VITD, TSH reflex FT4, LIPD, CBC, CMP #### [facility] [address], [place] [id number] eGFRNAA 97 mL/min/1.73m2 Normal >60 [facility] Comment on above: Performed By: #### F T4, VITD, TSH reflex FT4, LIPD, CBC, CMP #### [facility] [address], [place] [id number] Globulin (S) [Mass/Vol] 2.1 g/dL Normal 1.9-3.7 [facility] Comment on above: Performed By: #### F T4, VITD, TSH reflex FT4, LIPD, CBC, CMP #### [facility] [address], [place] [id number] Glucose [Mass/Vol] 106 mg/dL High 65-99 [facility] Comment on above: Result Comment: For FASTING Glucose --- ADA reference ranges: Normal 65-99 mg/dl Prediabetes 100-125 Diabetes >/= 126 Performed By: #### F T4, VITD, TSH reflex FT4, LIPD, CBC, CMP #### [facility] [address], [place] [id number] Potassium [Moles/Vol] 4.4 mmol/L Normal 3.5-5.5 [facility] [employer] Comment on above: Performed By: #### F T4, VITD, TSH reflex FT4, LIPD, CBC, CMP #### [facility] [address], [place] [id number] Protein [Mass/Vol] 6.8 g/dL Normal 6.1-8.1 [facility] [employer] Comment on above: Performed By: #### F T4, VITD, TSH reflex FT4, LIPD, CBC, CMP #### [facility] [address], [place] [id number] Sodium [Moles/Vol] 142 mmol/L Normal 135-146 [facility] [employer] Comment on above: Performed By: #### F T4, VITD, TSH reflex FT4, LIPD, CBC, CMP #### [facility] [address], [place] [id number] Urea nitrogen [Mass/Vol] 17 mg/dL Normal 7-25 [facility] [employer] Comment on above: Performed By: #### F T4, VITD, TSH reflex FT4, LIPD, CBC, CMP #### [facility] [address], [place] [id number] Free T4on 07-15-2021 Free T4 [Mass/Vol] 1.25 ng/dL Normal 0.80-1.80 [facility] [employer] Comment on above: Performed By: #### F T4, VITD, TSH reflex FT4, LIPD, CBC, CMP #### [facility] [address], [place] [id number] Lipid Panelon 07-15-2021 Cholesterol [Mass/Vol] 138 mg/dL Normal 125-200 [facility] [employer] Comment on above: Result Comment: Low risk < 200mg/dL Borderline risk 201-239 mg/dl High risk > or equal to 240 Performed By: #### F T4, VITD, TSH reflex FT4, LIPD, CBC, CMP #### [facility] [address], [place] [id number] Cholesterol in HDL [Mass/Vol] 51 mg/dL Normal >40 [facility] Comment on above: Result Comment: High Cardiovascular Risk HDL <40 mg/dL Low Cardiovascular Risk HDL > or equal to 60 mg/dl Performed By: #### F T4, VITD, TSH reflex FT4, LIPD, CBC, CMP #### [facility] [address], [place] [id number] Cholesterol in LDL [Mass/Vol] 67 mg/dL Normal [facility] Comment on above: Result Comment: LDL ATP III CLASSIFICATION LDL less than 100 mg/dl Optimal LDL 100-129 mg/dl Near or above optimal LDL 130-159 Borderline high LDL 160-189 High LDL greater than 189 mg/dl Very High Performed By: #### F T4, VITD, TSH reflex FT4, LIPD, CBC, CMP #### [facility] [address], [place] [id number] Cholesterol in VLDL [Mass/Vol] 20 mg/dL Normal [facility] [employer] Comment on above: Performed By: #### F T4, VITD, TSH reflex FT4, LIPD, CBC, CMP #### [facility] [address], [place] [id number] Cholesterol.total/C holesterol in HDL [Mass ratio] 3 {ratio} Normal [facility] Comment on above: Performed By: #### F T4, VITD, TSH reflex FT4, LIPD, CBC, CMP #### [facility] [address], [place] [id number] Triglyceride [Mass/Vol] 101 mg/dL Normal 30-150 [facility] [employer] Comment on above: Result Comment: TRIG ATPIII CLASSIFICATIONS TRIG less than 150 mg/dl Normal TRIG 150-199 mg/dl Borderline High TRIG 200-500 mg/dl High TRIG greather than 500 mg/dl Very High Performed By: #### F T4, VITD, TSH reflex FT4, LIPD, CBC, CMP #### [facility] [address], [place] [id number] TSH w/ Reflex to Free T4on 0 07-15-2021 FT4 reflex Free T4 Normal [facility] Comment on above: Performed By: #### F T4, VITD, TSH reflex FT4, LIPD, CBC, CMP #### [facility] [address], [place] [id number] TSH 4.570 uIU/mL High 0.400-4.500 [facility] [employer] Comment on above: Performed By: #### F T4, VITD, TSH reflex FT4, LIPD, CBC, CMP #### [facility] [address], [place] [id number] Vitamin D 25-OHon 07-15-2021 VIT D 25 OH 66 ng/ml Normal >29 [facility] Comment on above: Result Comment: Anu min D Status Deficiency <20 ng/mL Insufficiency 20-29 ng/mL Optimal 30-100 ng/mL Possible Toxicity >=150 ng/mL Performed By: #### F T4, VITD, TSH reflex FT4, LIPD, CBC, CMP #### [facility] [address], [place] [id number] XR Wrist 2 Views Righton XR Wrist [...] by Austen Maria on 07/15/2021 1509 Normal [facility] Prostatic Specific Antigen, Totalon 03-08-2021 TPSA 4.140 ng/mL High <4.000 [facility] Comment on above: Result Comment: PSA Test Method: ECLIA/Breanna e 601 Performed By: #### P SA #### [facility] [address], [place] [id number] Vital Signs Date Time Vital Sign Value Performing Clinician Facility 06-08-2023 09:28-0400 Body height 172.7 cm Sona Jelani DO Work Phone: [facility] 06-08-2023 09:28-0400 Body mass index (BMI) [Ratio] 26.03 kg/m2 Sona Palomares DO Work Phone: [facility] 06-08-2023 09:28-0400 Body weight 77.66 kg Sona Palomares DO Work Phone: [facility] 06-08-2023 09:28-0400 Diastolic blood pressure 78 mm[Hg] Sona Palomares DO Work Phone: [facility] 06-08-2023 09:28-0400 Heart rate 88 /min Sona Palomares DO Work Phone: [facility] 06-08-2023 09:28-0400 SaO2% (BldA) [Mass fraction] 94 % Sona Palomares DO Work Phone: [facility] Comment on above: 3LNC CONTINUOUS 06-08-2023 09:28-0400 Systolic blood pressure 148 mm[Hg] Sona Palomares DO Work Phone: [facility] 04-27-2023 12:06-0500 SaO2% (BldA) [Mass fraction] 93 % Sona Palomares DO Work Phone: [facility] Comment on above: On 3Lnc of O2 04-27-2023 12:03-0500 Body height 172.7 cm Sona Palomares DO Work Phone: [facility] 04-27-2023 12:03-0500 Body mass index (BMI) [Ratio] 25.74 kg/m2 Sona Palomares DO Work Phone: [facility] 04-27-2023 12:03-0500 Body weight 76.79 kg Sona Palomares DO Work Phone: [facility] 04-27-2023 12:03-0500 Diastolic blood pressure 76 mm[Hg] Sona Palomares DO Work Phone: [facility] 04-27-2023 12:03-0500 Heart rate 77 /min Sona Palomares DO Work Phone: [facility] 04-27-2023 12:03-0500 Systolic blood pressure 122 mm[Hg] Sona Palomares DO Work Phone: [facility] 04-19-2023 10:06-0500 Blood Pressure Location Bree Lue [facility] 04-19-2023 10:06-0500 Diastolic blood pressure 80 mm[Hg] Bree Lue [facility] 04-19-2023 10:06-0500 Heart rate 80 /min Bree Lue [facility] 04-19-2023 10:06-0500 Respiratory rate 16 /min Bree Lue [facility] 04-19-2023 10:06-0500 Systolic blood pressure 132 mm[Hg] Bree Lue [facility] 11-18-2022 13:05-0400 Body height 175.26 cm Edwige Lindsey Other [employer] Other 11-18-2022 13:05-0400 Body mass index (BMI) [Ratio] 25.54 kg/m2 Edwige Lindsey Other [employer] Other 11-18-2022 13:05-0400 Body temperature 98.1 [degF] Edwige Lindsey Other [employer] Other 11-18-2022 13:05-0400 Body weight 78.47 kg Edwige Lindsey Other [employer] Other 11-18-2022 13:05-0400 Diastolic blood pressure 73 mm[Hg] Edwige Lindsey Other [place] [employer] Other 11-18-2022 13:05-0400 Respiratory rate 18 /min Edwige Lindsey Other [facility] [employer] Other 11-18-2022 13:05-0400 SaO2% (BldA) [Mass fraction] 92 % Edwige Lindsey Other [employer] [facility] [employer] Other 11-18-2022 13:05-0400 Systolic blood pressure 124 mm[Hg] Edwige Lindsey Other [facility] [employer] Other 08-24-2022 14:45-0400 Blood Pressure Location SIOBHAN ARAGONRY [facility] 08-24-2022 14:45-0400 Diastolic blood pressure 70 mm[Hg] SIOBHAN JIMI [facility] 08-24-2022 14:45-0400 Heart rate 68 /min SIOBHAN JIMI [facility] 08-24-2022 14:45-0400 Respiratory rate 16 /min SIOBHAN JIMI [facility] 08-24-2022 14:45-0400 Systolic blood pressure 130 mm[Hg] SIOBHAN JIMI [facility] 03-22-2022 14:16-0500 Blood Pressure Location SIOBHAN JIMI [facility] 03-22-2022 14:16-0500 Diastolic blood pressure 82 mm[Hg] SIOBHAN KRAUSE [facility] 03-22-2022 14:16-0500 Heart rate 68 /min SIOBHAN KRAUSE [facility] 03-22-2022 14:16-0500 Respiratory rate 16 /min SIOBHAN KRAUSE [facility] 03-22-2022 14:16-0500 Systolic blood pressure 132 mm[Hg] SIOBHAN KRAUSE [facility] Encounters Encounter Date Encounter Type Care Provider Facility Start: 07-21-2023 End: 07-21-2023 ambulatory VIOLA Salvatore [facility] Start: 07-20-2023 End: 07-20-2023 ambulatory ROWAN ELEUTERIO Not Available Start: 07-18-2023 End: 07-18-2023 ambulatory KENDAL Chase XIOMARA Not Available Start: 07-07-2023 End: 07-08-2023 ambulatory [facility] Start: 06-19-2023 End: 06-20-2023 ambulatory EVETTE A BLAS Not Available Start: 06-08-2023 End: 06-08-2023 ambulatory [facility] Start: 06-08-2023 End: 06-08-2023 Office outpatient visit 15 minutes [facility] DO Work Phone: [facility] Comment on above: Bulla of lung ([facility]) (Primary Dx); Chronic obstructive pulmonary disease, unspecified COPD type (CMS-HCC); Chronic respiratory failure with hypoxia and hypercapnia ([facility]); JEANMARIE treated with BiPAP Start: 05-17-2023 End: 05-17-2023 ambulatory NON STAFF Facility:[facility] Start: 05-17-2023 End: 05-17-2023 ambulatory NON STAFF [facility] Work Phone: Start: 05-17-2023 End: 05-17-2023 Patient encounter procedure DO Kvng Arthur Work Phone: [facility] Start: 04-27-2023 End: 04-27-2023 ambulatory SONA M [facility] Start: 04-27-2023 End: 04-27-2023 Office outpatient visit 15 minutes Sona Palomares DO Work Phone: [facility] Comment on above: JEANMARIE treated with BiP AP (Primary Dx); Chronic respiratory failure with hypoxia and hypercapnia ([facility]); Chronic obstructive pulmonary disease, unspecified COPD type ([facility]); Bulla of lung ([facility]); Stage 4 very severe COPD by GOLD classification ([facility]) Start: 04-19-2023 End: 04-20-2023 ambulatory Bree Frias Facility:[facility] Start: 04-19-2023 End: 04-19-2023 Patient encounter procedure Bree Frias [facility] Start: 04-18-2023 Ronal SANDERS Work Phone: [facility] Comment on above: Mixed hyperlipidemia (CMS/HCC) (Primary Dx); Benign localized prostatic hyperplasia without lower urinary tract symptoms (LUTS); Primary hypertension (CMS/HCC); Acquired hypothyroidism (CMS/HCC) Start: 03-08-2023 End: 03-09-2023 ambulatory KVNG ARTHUR [facility] Start: 11-18-2022 End: 11-18-2022 ambulatory Edwige Lindsey Other [employer] Other Start: 11-18-2022 Office outpatient ne w 10 minutes Edwige Lindsey [facility] Start: 11-12-2022 Patient encounter status Daniel Haines LPN Work Phone: [facility] [employer] Start: 08-24-2022 End: 08-25-2022 ambulatory SIOBHAN KRAUSE Facility:[facility] Start: 08-24-2022 End: 08-24-2022 Patient encounter procedure SIOBHAN KRAUSE [facility] Start: 04-22-2022 End: 04-22-[address] SIOBHAN CALERO Facility: Start: 03-22-2022 End: 03-22-2022 Patient encounter procedure [facility] Start: 12-30-2021 End: 12-30-2021 ambulatory SUSANA MADISON . Facility: Start: 09-04-2021 End: 09-04-2021 ambulatory DEEPIKA HENDRICKS Facility: Start: 08-15-2021 End: 08-15-2021 ambulatory SUSANA MADISON . Facility: Start: 06-22-2021 End: 01-06-[address] SIOBHAN CALERO Facility: Start: 12-04-2018 Patient encounter status Sunshine Palomares DO Work Phone: [employer] Work Phone: Procedures Date Procedure Procedure Detail Performing Clinician Start: 06-08-2023 Follow-up visit Follow-up SONA PALOMARES Start: 08-23-2022 History of thyroidectomy Histo ry of thyroidectomy Susan Haines LPN Work Phone: Start: 09-16-2019 Colonoscopy Susan reddy [employer] Work Phone: Start: 12-22-2018 Carotid endarterectomy SIOBHAN KRAUSE Comment on above: Left side Start: 09-28-2012 Cystoscopy SIOBHAN SHAW Hand Surgery SIOBHAN KRAUSE Nose Surgery SIOBHAN KRAUSE Ophthalmic surgery (qualifier value) SIOBHAN KRAUSE Placement of stent i n cardiac conduit Bree Frias Repair of inguinal hernia SIOBHAN KRAUSE Plan of Treatment Date Care Activity Detail Author Start: 09-05-2031 DTaP,Tdap and Td Vaccines (4 - Td or Tdap) DTaP,Tdap and Td Vaccines (4 - Td or Tdap) [facility] Start: 09-15-2029 Screening for malign ant neoplasm of colon [facility] Start: 04-27-2024 Adult BMI Screening Adult BMI Screen ing [facility] Start: 04-27-2024 Tobacco Screening Tobacco Screening [facility] Start: 04-24-2024 ambulatory Ambulatory Facility:[facility] Start: 01-07-2024 Medicare Annual Wellness (AWV) Medicare Annual Wellness (AWV) [facility] Start: 11-05-2023 Influenza vaccination Influenza Vacc ine [facility] Start: 10-09-2023 End: 10-09-2023 Patient encounter procedure 10/09/2023 1:45 PM EDT Office Visit [facility] [address] [place] [address] [place] [address] Lashay Nunez MD [address] [facility] [address] [place] [address] [facility] Start: 10-02-2023 End: 10-02-2023 Patient encounter procedure 10/02/2023 2:30 PM EDT Appointment [facility] [address] [place] [id number] Carol Campos, REMEDIAL PROJECT MANAGER-[employer] [address] [place] , [facility] [address] 11/25/2022 [place] [address] [facility] Start: 08-03-2023 End: 08-03-2023 Patient encounter procedure 08/03/2023 1:30 PM EDT Office Visit [facility] [address] [place] [address] Naldo Palomaresalbania Swift, DO [address] [id number] [facility] Start: 04-20-2023 End: 04-20-2023 Patient encounter procedure 04/20/2023 1:45 PM EST Office Visit [facility] [address] [place] [address] Kendal Escoto MD [address] [place] [address] [facility] Start: 11-04-2022 COVID-19 Vaccine ( season) COVID-19 Vaccine ( season) [facility] Start: 09-15-2022 Screening for malign ant neoplasm of colon Colonoscopy [facility] Start: 2014 Fall Risk Screening Fall Risk Screen ing [facility] Start: 08-18-1967 Adult BMI Follow Up Plan Adult BMI Follow Up Plan [facility] Start: 1961 Depression Screening Depression Scre ening [facility] Start: 1949 Medicare Annual Wellness Visit Medicare Annual Wellness Visit [facility] Start: 1949 Screening for malign ant neoplasm of colon [facility] Immunizations Immunization Date Immunization Notes Care Provider Fa [facility] 01-06-2023 influenza virus vacc ine, unspecified formulation Bree Frias [facility] 01-06-2023 Influenza, High-dose Seasonal, Quadrivalent, Preservative Free Susan Burel [employer] Work Phone: [facility] 01-06-2023 Pneumococcal Conjuga te PCV 20 Susan Burel [employer] Work Phone: [facility] 01-11-2022 influenza virus vacc ine, unspecified formulation SIOBHAN KRAUSE [facility] 11-08-2022 Influenza, High-dose Seasonal, Quadrivalent, Preservative Free Susan Burel [employer] Work Phone: [facility] 01-11-2022 zoster vaccine recombinant SIOBHAN JIMI [facility] 09-04-2021 diphtheria, tetanus toxoids and pertussis vaccine Susan Burel [employer] Work Phone: [facility] 09-04-2021 tetanus toxoid, redu wilma diphtheria toxoid, and acellular pertussis vaccine, adsorbed Susan Burel [employer] Work Phone: [facility] 07-15-2021 pneumococcal polysaccharide vaccine, 23 valent SIOBHAN JIMI [facility] 02-16-2021 zoster vaccine recombinant SIOBHAN JIMI [facility] 12-29-2020 influenza virus vacc ine, unspecified formulation SIOBHAN JIMI [facility] 12-29-2020 influenza, seasonal, injectable, preservative free Susan Burel [employer] Work Phone: [facility] 12-23-2020 SARS-CoV-2 (COVID-19 ) mRNA-1273 vaccine SIOBHAN JIMI [facility] 12-16-2020 influenza virus vacc ine, unspecified formulation SIOBHAN JIMI [facility] 12-16-2020 Influenza, High-dose Seasonal, Quadrivalent, Preservative Free Susan Burel [employer] Work Phone: [facility] 12-16-2020 SARS-CoV-2 (COVID-19 ) mRNA BNT-162b2 vax SIOBHAN JIMI [facility] 11-29-2020 SARS-CoV-2 (COVID-19 ) mRNA-1273 vaccine SIOBHAN JIMI [facility] 05-06-2020 SARS-CoV-2 (COVID-19 ) mRNA BNT-162b2 vax SIOBHAN JIMI [facility] Comment on above: Result Comment: 2022: [id number] 05-06-2020 SARS-CoV-2, Unspecified Shan ee Burel [employer] Work Phone: [facility] 04-14-2020 SARS-CoV-2 (COVID-19 ) mRNA BNT-162b2 vax SIOBHAN JIMI [facility] Comment on above: Result Comment: 2022: [id number] 04-14-2020 SARS-CoV-2, Unspecified Shan ee Burel [employer] Work Phone: [facility] 03-06-2020 SARS-CoV-2 (COVID-19 ) mRNA BNT-162b2 vax SIOBHAN JIMI [facility] Comment on above: Result Comment: Pt s tates he had 3 shots to date 01-22-2020 influenza virus vacc ine, unspecified formulation SIOBHAN JIMI [facility] 11-26-2019 influenza virus vacc ine, unspecified formulation SIOBHAN JIMI [facility] 11-26-2019 influenza, high dose seasonal, preservative-free Susan Burel [employer] Work Phone: [facility] 11-26-2019 Influenza, High-dose Seasonal, Quadrivalent, Preservative Free Susan Burel [employer] Work Phone: [facility] 12-04-2018 influenza virus vacc ine, unspecified formulation SIOBHAN JIMI [facility] 12-04-2018 seasonal influenza, intradermal, preservative free Susan Burel [employer] Work Phone: [facility] 11-22-2018 influenza virus vacc ine, unspecified formulation SIOBHAN JIMI [facility] 11-22-2018 influenza, injectabl e, quadrivalent, preservative free Susan Burel [employer] Work Phone: [facility] 01-22-2018 influenza virus vacc ine, unspecified formulation SIOBHAN JIMI [facility] 01-22-2018 influenza, high dose seasonal, preservative-free Susan Burel [employer] Work Phone: [facility] 01-22-2018 Influenza, High-dose Seasonal, Quadrivalent, Preservative Free Susan Burel [employer] Work Phone: [facility] 03-30-2017 influenza, high dose seasonal, preservative-free Susan Burel [employer] Work Phone: [facility] 11-15-2016 influenza virus vacc ine, unspecified formulation SIOBHAN JIMI [facility] 11-15-2016 influenza, high dose seasonal, preservative-free Susan Burel [employer] Work Phone: [facility] 11-15-2016 influenza, injectabl e, quadrivalent, preservative free Susan Burel [employer] Work Phone: [facility] 01-29-2016 pneumococcal polysaccharide vaccine, 23 valent SIOBHAN JIMI [facility] 12-09-2015 influenza virus vacc ine, unspecified formulation SIOBHAN JIMI [facility] 12-09-2015 influenza, high dose seasonal, preservative-free Susan Burel [employer] Work Phone: [facility] 01-14-2015 influenza virus vacc ine, unspecified formulation SIOBHAN KRAUSE [facility] 01-14-2015 influenza, high dose seasonal, preservative-free Susan Burel [employer] Work Phone: [facility] 01-14-2015 pneumococcal conjuga te vaccine, 13 valent SIOBHAN JIMI [facility] 12-20-2013 influenza virus vacc ine, unspecified formulation SIOBHAN JIMI [facility] 12-20-2013 influenza, seasonal, injectable, preservative free Susan Burel [employer] Work Phone: [facility] 05-21-2013 tetanus toxoid, redu wilma diphtheria toxoid, and acellular pertussis vaccine, adsorbed SIOBHAN JIMI [facility] 12-07-2012 influenza virus vacc ine, unspecified formulation SIOBHAN KRAUSE [facility] 12-07-2012 influenza, seasonal, injectable, preservative free Susan Burel [employer] Work Phone: [facility] 01-02-2012 influenza virus vacc ine, unspecified formulation SIOBHAN JIMI [facility] 01-02-2012 influenza, seasonal, injectable, preservative free Susan Burel [employer] Work Phone: [facility] 01-02-2012 pneumococcal polysaccharide vaccine, 23 valent SIOBHAN JIMI [facility] 12-17-2010 seasonal influenza, intradermal, preservative free Susan Burel [employer] Work Phone: [facility] 12-14-2010 influenza virus vacc ine, whole virus Susan Burel [employer] Work Phone: [facility] 12-14-2010 influenza, whole SIOBHAN MERCER RRY [facility] 10-15-2010 zoster vaccine, live Susan Burel [employer] Work Phone: [facility] 01-21-2010 influenza virus vacc ine, unspecified formulation SIOBHAN KRAUSE [facility] 01-21-2010 seasonal influenza, intradermal, preservative free Susan Burel [employer] Work Phone: [facility] Payers Date Payer Category Payer Self-pay [id number] 2015 Unknown [id number] 2014 Medicare [id number] 1959 Medicare [id number] 1959 Unknown [id number] 1949 Unknown [id number] 2.16.84 0.1.002104.3.579.2.593 1949 Unknown [id number] 2.16.84 0.1.935394.3.579.2.593 1949 Unknown [id number] 2.16.84 0.1.251346.3.579.2.593 1949 Unknown [id number] 2.16.84 0.1.788090.3.579.2.593 1949 Unknown [id number] 2.16.84 0.1.881642.3.579.2.593 1949 Unknown [id number] 2.16.8 40.1.908534.3.579.2.727 1949 Unknown [id number] 2.16.8 40.1.250462.3.579.2.727 1949 Unknown [id number] 2.16.8 40.1.286642.3.579.2.727 1949 Unknown [id number] 2.16.8 40.1.554386.3.579.2.1286 1949 Unknown [id number] 2.16.84 0.1.649711.3.579.2.1286 1949 Unknown [id number] 2.16.84 0.1.835177.3.579.2.1259 1949 Unknown [id number] 2.16.84 0.1.405133.3.579.2.1259 1949 Unknown [id number] 2.16.84 0.1.460433.3.579.2.1259 1949 Unknown [id number] 2.16.84 0.1.897211.3.579.2.1259 1949 Unknown [id number] 2.16.8 40.1.022525.3.579.2.1286 1949 Unknown [id number] 2.16.8 40.1.914801.3.579.2.1286 1949 Unknown [id number] 2.16.8 40.1.950269.3.579.2.1286 Unknown [id number] 2.16.8 40.1.529960.3.579.2.531 Social History Date Type Detail Facility Start: 09-07-2021 End: 03-22-2022 Tobacco smoking status Ex-smoker (finding) [facility] Start: 04-16-2020 End: 01-06-2023 Sex Assigned At Male [facility] Tobacco smoking status Never [facility] Start: 11-18-2022 End: 01-04-2021 History of tobacco use Current smoker [facility] End: 01-04-2021 History of tobacco use Cigarette Smoker [facility] Start: 09-07-2021 End: 11-12-2022 Tobacco use and exposure Smokeless tobacco non-user [facility] Start: 04-16-2020 End: 01-06-2023 History of Social function [facility] Start: 1950 Sex Assigned At Not on file [facility] Start: 04-27-2023 End: 06-08-2023 Alcohol intake Ex-drinker (finding) [facility] Start: 1950 Sex Assigned At Male [facility] Medical Equipment Procedure Code Equipment Code Equipment Origin al Text Equipment Identifier Dates Ptch Vsc 8x.8cm Xenosure Bvn Rpl [id number] - [id number] - [id number] Start: 12-12-2018 Comment on above: Description: XenSure Biologic Patch 0.8cm x 8cm Functional Status Date Assessment Result Facility 04-19-2023 Functional Status N/A [facility] 08-24-2022 Functional Status N/A [facility] 03-22-2022 Functional Status N/A [facility] Clinical Notes 03-22-2022 to 07-07-2023 Sona Palomares, DO - 06/08/2023 9:30 AM Radha Hill Salvatore - 04/27/2023 11:45 AM Gaurav Palomares, DO - 04/27/2023 11:45 AM Faisal Haines LPN - 04/18/2023 11:40 AM EST Note Date & Type Note Facility 07-07-2023 Note XR CHEST 2 VWS History: Worsening shortness of breath Procedure: 2 view PA and Lateral chest radiograph. Comparison: 01/28/2011 Findings: The heart and lungs show no acute findings, and the mediastinum and linda are grossly negative . No pneumothorax. Hyperlucent, hyperinflated lungs, flattened hemidiaphragms. Impression: No acute pulmonary process. COPD. Finalized by Hugo Giordano MD on 07/07/2023 3:53 PM [facility] 06-08-2023 History of Present illness Narrative [facility] Note Patient - Lyssa Frost Age - 72 [facility] 1950 [id number] ASSESSMENT 1. Very severe COPD with emphysema and features of chronic bronchitisGOLD stage C -FEV1 27% 2. Chronic hypoxic hypercapnic respiratory failure -nocturnal O2 and with ambulation. 3L 3. Obstructive sleep apnea on BIPAP 17/10 with 2L bleed in O2 4. Bulla of the lung, left 5. Tobacco use - quit in Jan 2021 6. History of tendonitis with fluoroquinolone 7. Bronchiectasis in setting of COPD with chronic mucopurulent cough. PLAN Recurrent exacerbations which are at times difficult to distinguish from panic episodes. Discussed initial steps should be aerosol treatment, pursed lip nasal breathing, sitting down and resting prior to immediate initiation of prednisone No further prednisone indicated at present to taper down. Will provide additional prednisone 40 mg x 5 days. As per previous instructions, is to call immediately should patient feel the need to initiate Continue Breo, DuoNeb aerosols throughout the day Ongoing adherence to supplemental oxygen therapy advised Continue BiPAP therapy with all sleep We discussed in detail exercise program, chair yoga, standing exercises, chair exercises, walking. Discussed consideration of potential aid such as rolling walker for his comfort and to reduce his anxiety with walking Ongoing follow-up with palliative medicine Return to clinic at previously scheduled appointment in end of July Mr. Frost presents for pulmonary follow up of his severe GOLD C COPD with frequent exacerbations. His is present with him again today. He was just seen on April 28 and has requested visit again. He is maintained on daily prednisone 5 mg along with azithromycin 3 times weekly. He was previously on Symbicort, scheduled DuoNebs anywhere from 4-5 times per day but recent formulary change he is transitioned to Breo. He had another exacerbation at the beginning of May and the end of May. This is 3rd exacerbation of this calendar year requiring steroids, increased aerosols at home. With the most recent exacerbation he did not attempt aerosols as relief and went immediately to steroid. He currently feels improved. He overall felt improved within 6 hours of the exacerbation and with use of prednisone. He has been using the oxygen more consistently since last office visit but still throughout conversation does self report occasionally going into stores without his supplemental oxygen therapy. He does continue to take prednisone 5 mg daily and is using azithromycin 3 times weekly. He also reports that last month they ran out of his albuterol aerosol solution and had some issues with insurance and being able to obtain refill of his albuterol through the pharmacy. They were able to obtain some albuterol solution of same dosage through his family members and patch through. He just received his new prescription 2 days ago and reports that there was no further issues associated with the prescription VITALS BP 148/78 Pulse 88 Ht 172.7 cm (5' 8 ) Wt 77.7 kg (171 lb 3.2 oz) SpO2 94% Comment: 3LNC CONTINUOUS BMI 26.03 kg/m Exam General: Alert, oriented, no acute distress, nontoxic HEENT: Moist mucosal membranes, no oral lesions or oral thrush, trachea midline Chest: Diminished throughout without any crackles or wheezes. Increased AP diameter. CV: Regular rate regular rhythm Extremities: No edema, erythema, distal cyanosis, clubbing Integumentary: Warm and dry. No rash or lesion Neuro: No lateralizing deficits. No tremors Meds Medications Reviewed. Dr. Sona Palomares DO. [facility] Office: [phone] documented in this encounter [facility] 04-27-2023 History of Present illness Narrative Images from the original note were not included. [facility] Progress Note Patient - Lyssa Frost Age - 72 y.o. - 1950 ASSESSMENT 1. Very severe COPD with emphysema and features of chronic bronchitisGOLD stage C -FEV1 27% 2. Chronic hypoxic hypercapnic respiratory failure -nocturnal O2 and with ambulation. 3L 3. Obstructive sleep apnea on BIPAP 20/12 with 2L bleed in O2 4. Bulla of the lung, left 5. Tobacco use - quit in Jan 2021 6. History of tendonitis with fluoroquinolone 7. Bronchiectasis in setting of COPD with chronic mucopurulent cough. PLAN Discussed need and benefit of supplemental oxygen therapy to be use 3 L with ambulation, sleep. Discussed need to bring oxygen with him when he leaves the home Continue current medication regimen Ongoing care with palliative. May benefit from use of opioids for dyspnea control in future We have previously discussed transplant, endobronchial valve, LVR Reminded low-dose screening CT scan is anticipated in August All questions answered Return to clinic in 3 months or earlier if needed SUBJECTIVE Mr. Frost presents for pulmonary follow up of his severe GOLD C COPD with frequent exacerbations. His is present with him again today. He arrives today without his supplemental oxygen on and was 83% on arrival. He has been consistent with using azithromycin 3 times weekly along with his daily prednisone 5 mg daily, Symbicort, DuoNeb aerosols anywhere from 4-5 times daily. Overall he and his feel better about his overall status. Has had 1 exacerbation so far this year requiring steroids which they feel is markedly improved from previous episodes. He has previously been needing steroids about every 4 weeks for exacerbations. He did meet with palliative nurse and they are following with hospice of [facility] for palliative care and hospice. He attempted to go for a walk however this did not go well. He has a hard time going up and down the stairs. He does try to walk in the house and do activities around the home still. We repeated his home oxygen evaluation again in January and he continues to require 3 L nasal cannula with all exertion and with sleep VITALS Pulse 77 Ht 172.7 cm (5' 8 ) Wt 76.8 kg (169 lb 4.8 oz) SpO2 93% Comment: On 3Lnc of O2 BMI 25.74 kg/m Exam General: Alert, oriented, no acute distress, nontoxic HEENT: Moist mucosal membranes, no oral lesions or oral thrush, trachea midline Chest: Diminished throughout without any wheezes, rhonchi increased AP diameter. CV: Regular rate regular rhythm Extremities: No edema, erythema, distal cyanosis, clubbing Integumentary: Warm and dry. No rash or lesion Neuro: No lateralizing deficits. No tremors Meds Medications Reviewed. Dr. oSna Palomares DO. [facility] Office: [phone] documented in this encounter [facility] 04-19-2023 Hospital Discharge instructions Patient Education 04/19/2023 10:43:52 Prostate Cancer Screening Prostate Cancer Screening Prostate cancer screening is testing that is done to check for the presence of prostate cancer in men. The prostate gland is a walnut-sized gland that is located below the bladder and in front of the rectum in males. The function of the prostate is to add fluid to semen during ejaculation. Prostate cancer is one of the most common types of cancer in men. Who should have prostate cancer screening? Screening recommendations vary based on age and other risk factors, as well as between the professional organizations who make the recommendations. In general, screening is recommended if: You are age 50 to 70 and have an average risk for prostate cancer. You should talk with your health care provider about your need for screening and how often screening should be done. Because most prostate cancers are slow growing and will not cause , screening in this age group is generally reserved for men who have a 10- to 15-year life expectancy. You are younger than age 50, and you have these risk factors: ?Having a father, brother, or uncle who has been diagnosed with prostate cancer. The risk is higher if your family member's cancer occurred at an early age or if you have multiple family members with prostate cancer at an early age. ?Being a male who is Black or is of Rob[place] or sub-Saharan descent. In general, screening is not recommended if: You are younger than age 40. You are between the ages of 40 and 49 and you have no risk factors. You are 70 years of age or older. At this age, the risks that screening can cause are greater than the benefits that it may provide. If you are at high risk for prostate cancer, your health care provider may recommend that you have screenings more often or that you start screening at a younger age. How is screening for prostate cancer done? The recommended prostate cancer screening test is a blood test called the prostate-specific antigen (PSA) test. PSA is a protein that is made in the prostate. As you age, your prostate naturally produces more PSA. Abnormally high PSA levels may be caused by: Prostate cancer. An enlarged prostate that is not caused by cancer (benign prostatic hyperplasia, or BPH). This condition is very common in older men. A prostate gland infection (prostatitis) or urinary tract infection. Certain medicines such as male hormones (like testosterone) or other medicines that raise testosterone levels. A rectal exam may be done as part of prostate cancer screening to help provide information about the size of your prostate gland. When a rectal exam is performed, it should be done after the PSA level is drawn to avoid any effect on the results. Depending on the PSA results, you may need more tests, such as: A physical exam to check the size of your prostate gland, if not done as part of screening. Blood and imaging tests. A procedure to remove tissue samples from your prostate gland for testing (biopsy). This is the only way to know for certain if you have prostate cancer. What are the benefits of prostate cancer screening? Screening can help to identify cancer at an early stage, before symptoms start and when the cancer can be treated more easily. There is a small chance that screening may lower your risk of dying from prostate cancer. The chance is small because prostate cancer is a slow-growing cancer, and most men with prostate cancer from a different cause. What are the risks of prostate cancer screening? The main risk of prostate cancer screening is diagnosing and treating prostate cancer that would never have caused any symptoms or problems. This is called overdiagnosisand overtreatment. PSA screening cannot tell you if your PSA is high due to cancer or a different cause. A prostate biopsy is the only procedure to diagnose prostate cancer. Even the results of a biopsy may not tell you if your cancer needs to be treated. Slow-growing prostate cancer may not need any treatment other than monitoring, so diagnosing and treating it may cause unnecessary stress or other side effects. Questions to ask your health care provider When should I start prostate cancer screening? What is my risk for prostate cancer? How often do I need screening? What type of screening tests do I need? How do I get my test results? What do my results mean? Do I need treatment? Where to find more information [employer] [place]: www.cancer.org [employer]: www.auanet.org Contact a health care provider if: You have difficulty urinating. You have pain when you urinate or ejaculate. You have blood in your urine or semen. You have pain in your back or in the area of your prostate. Summary Prostate cancer is a common type of cancer in men. The prostate gland is located below the bladder and in front of the rectum. This gland adds fluid to semen during ejaculation. Prostate cancer screening may identify cancer at an early stage, when the cancer can be treated more easily and is less likely to have spread to other areas of the body. The prostate-specific antigen (PSA) test is the recommended screening test for prostate cancer, but it has associated risks. Discuss the risks and benefits of prostate cancer screening with your health care provider. If you are age 70 or older, the risks that screening can cause are greater than the benefits that it may provide. This information is not intended to replace advice given to you by your health care provider. Make sure you discuss any questions you have with your health care provider. Document Revised: 08/16/2021 Document Reviewed: 08/16/2021 [employer] Patient Education 2022 [employer]. Follow Up Care 04/05/2023 11:46:46 With:Rodriguez WILSON, SORAYA Hernandez, URO Address: [address], [facility] [place] [address] [phone] When: Unknown Comments:1 yr w/ PSA [facility] 04-18-2023 History of Present illness Narrative requesting refills on several meds for 90d supply [facility]. Pt last seen in office in January. documented in this encounter [facility] 11-18-2022 Evaluation note Encounter Date Diagnosis Assessment Notes Nov, History of COPD (ICD-10 - Z87.09) Drink plenty fluids, get plenty of rest. Continue home medications as prescribed. Take the prednisone as prescribed until gone. Call your doctor on Monday for reevaluation next week. Nov, Wheezing (ICD-10 - R06.2) [facility] Other 06-21-2023 Hospital Discharge instructions Patient Education 08/24/2022 15:30:17 Transurethral Resection [...] light, a camera, and an electric cutting edge(resectoscope) is passed through the urethra and into the prostate. The opening of the urethra is at the end of the penis. Tell a health care provider about: Any allergies you have. All medicines you are taking, including vitamins, herbs, eye drops, creams, and kssr-ymm-tvhizsv medicines. Any problems you or family members [...] provider tells you to take them. Taking tbsh-pyx-xebtclw medicines, vitamins, herbs, and supplements. Surgery safety Ask your health care provider what steps will be taken to help prevent infection. These steps may include: Removing hair at the surgery site. Washing skin with a germ-killing soap. Taking antibiotic medicine. General instructions Do not use any products that contain nicotine or tobacco for at least 4 weeks before the procedure.These products include cigarettes, chewing tobacco, and vaping [...] blood oxygen level will be monitored until youleave the hospital or clinic. You will be [...] provider. Document Revised: 11/16/2021 Document Reviewed: 11/16/2021 [employer] Patient Education 2022 [employer]. Follow Up Care 06/27/2022 16:39:34 With:JIMI GARCIA, SIOBHAN Saini, URL Address: [address] [place] [address] [facility] [place] [address] When: Unknown [facility] 01-17-2023 Hospital Discharge instructions Patient Education 03/22/2022 14:48:50 Benign Prostatic Hyperplasia Benign Prostatic Hyperplasia Benign prostatic hyperplasia (BPH) is an enlarged prostate gland that is caused by the normal agingprocess and not by cancer. The prostate is [...] urethra. Follow these instructions at home: Take qzty-fbc-ywrjjnz and prescription medicines only as told by [...] 02/20/2006 Document Revised: 01/15/2019 Document Reviewed: 03/27/2017 [employer] Patient Education 2020 [employer]. Follow Up Care 03/11/2021 15:40:43 With:SIOBHAN KRAUSE PA-C, URL Address: When:1 year [facility] evaluation + Plan note Future Appointments Appointment Date:03/22/2023 02:20:00 PM Scheduled Provider:SIOBHAN KRAUSE PA-C Location:[facility] Appointment Type:URO Office Visit Diagnostic Tests Pending * PSA Free & Total 03/22/22 * PSA Free & Total 03/22/22 [facility] evaluation + Plan note Future Appointments Appointment Date:03/22/2023 02:20:00 PM Scheduled Provider:SIOBHAN KRAUSE PA-C Location:[facility] Appointment Type:URO Office Visit [facility] evaluation + Plan note Future Appointments Appointment Date:04/24/2024 10:45:00 AM Scheduled Provider:Bree Frias MD Location:[facility] Appointment Type:URO Office Visit Diagnostic Tests Pending * PSA Free & Total 04/19/23 [facility] evaluation note* Diagnosis Mixed hyperlipidemia (CMS/HCC)- Primary Mixed hyperlipidemia Benign localized prostatic hyperplasia without lower urinary tract symptoms (LUTS) Primary hypertension (CMS/HCC) Unspecified essential hypertension Acquired hypothyroidism (CMS/HCC) Unspecified hypothyroidism documented in this encounter [facility] [place] [facility]* Diagnosis JEANMARIE treated with BiPAP- Primary Chronic respiratory failure with hypoxia and hypercapnia (CMS-HCC) Chronic obstructive pulmonary disease, unspecified COPD type (CMS-HCC) Bulla of lung (CMS-HCC) Emphysematous bleb Stage 4 very severe COPD by GOLD classification ([facility]) documented in this encounter [facility] noteNo assessment information available [facility] Work Phone: Evaluation note* Diagnosis 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 Chronic obstructive pulmonary disease, unspecified COPD type (CMS-HCC) Chronic respiratory failure with hypoxia and hypercapnia (CMS-HCC) JEANMARIE treated with BiPAP documented in this encounter [facility] general Narrative - Reported* Type Description Date Medical History Chronic obstructive pulmonary disease, unspecified COPD type Medical History Uncomplicated asthma, unspecifie d asthma severity Medical History ST elevation myocard ial infarction (STEMI), unspecified artery Medical History Hypercholesterolemia Medical History Benign essential HTN Medical History Benign prostatic hyp erplasia, unspecified whether lower urinary tract symptoms present Surgical History umbilical hernia repair Surgical History colonoscopy Hospitalization History see above Corporama Other Hospital course Narrative No data available for this section [facility] InstructionsNot on filedocumented in this encounter [facility] SystemInstructionsNot on filedocumented in this encounter [facility] No data available for this section [facility] Summary Purpose Family History No Family History Records Found Relationship Condition Age at Onset Recorded Date/T natividad father Unknown Not Specified Unknown History of stroke Unknown Hypertension Unknown Advance Directives No Advanced Directives Records Found Advance Directive Response Recorded Date/ Time Advance Directives No November 1:39pm Reason for Referral Specialty Diagnoses / Procedures Referred By Contac t Referred To Contact Diagnoses Stage 4 very severe COPD by GOLD classification ([facility]) Soan Palomares, DO [address] [address] Referral ID Status Reason Start Date Expiration Date V isits Requested Visits Authorized [id number] Pending Review 1 1 Chief Complaint and Reason for Visit 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 DATE CREATED AUTHOR AUTHOR'S ORGANIZ ATION 05/26/2023 [facility] DATE CREATED AUTHOR AUTHOR'S ORGANIZ ATION 07/09/2023 [facility] DATE CREATED AUTHOR AUTHOR'S ORGANIZ ATION 07/20/2023 [facility] dical Specialists [facility] DATE CREATED AUTHOR AUTHOR'S ORGANIZ ATION 07/[facility]2023 [facility] Care team informatio n (unrecognized section and content) Telegraph And Teletype Operator Relationship Specialty Start Date End Date Siobhan Calero MD [address] [place] [address] PCP - ACO Reach 07/28/22 Siobhan Calero MD [address] [place] [address] PCP - General Family Medicine 08/23/22 Telegraph And Teletype Operator Relationship Specialty Start Date End Date Siobhan Calero MD [address] [place] [address] PCP - General Family Medicine 07/22/16 Team Status: Active Member Role Status Dates NON STAFF Primary Care Provider Active Team Status: Inactive Member Role Status Dates Kvng Arthur DO Attending Provider Active Sta rt: May 17, 2023 End: May 17, 2023 NON STAFF Primary Care Provider Active Start: May 17, 2023 End: May 17, 2023 Telegraph And Teletype Operator Relationship Specialty Start Date End Date Siobhan Calero MD [address] [place] [address] PCP - General Family Medicine 07/22/16 REASON FOR VISIT (unrecogniz ed section and content) Reason Onset Date Comments Med Refill 04/18/2023 Reason Comments Follow-up COPD Home O2 Evaluation: 01/21/2023On 3Lnc of O2 Sleep Apnea DME: Jayson Reason Comments Follow-up COPD Sleep Apnea Cough DENIES Wheezing REPORTS MORNINGS Shortness of Breath REPORTS IMPROVEMENT BUT JUST MILD Goals (unrecognized section and content) Goals may be documented in a n alternate section FOR RECORDS PERTAINING TO PATIENTS WHO ARE [...] BE BASED ON THE PRIMARY CLINICAL RECORDS. codetag. provides no warranty or guarantee of the accuracy or completeness of information in this document.
[2023-08-01] MEDS: ALBUTEROL SULFATE 2.5 MG/3 ML VIAL NEB IH (14:00)
[2023-08-01 14:04] LABS: Adenovirus NOT DETECTED (NOT DETECTE); Bordetella parapertussis NOT DETECTED (NOT DETECTE); Coronavirus 229E NOT DETECTED (NOT DETECTE); Coronavirus HKU1 NOT DETECTED (NOT DETECTE); Coronavirus NL63 NOT DETECTED (NOT DETECTE); Coronavirus OC43 NOT DETECTED (NOT DETECTE); Human Metapneumovirus NOT DETECTED (NOT DETECTE); Human Rhinovirus/Enterovirus NOT DETECTED (NOT DETECTE); Influenza A NOT DETECTED (NOT DETECTE); Influenza B NOT DETECTED (NOT DETECTE); Mycoplasma pneumoniae NOT DETECTED (NOT DETECTE); Parainfluenza Virus 1 NOT DETECTED (NOT DETECTE); Parainfluenza Virus 2 NOT DETECTED (NOT DETECTE); Parainfluenza Virus 3 NOT DETECTED (NOT DETECTE); Parainfluenza Virus 4 NOT DETECTED (NOT DETECTE); Respiratory Syncytial Virus NOT DETECTED (NOT DETECTE); SARS-CoV-2 NOT DETECTED (NOT DETECTE)
[2023-08-01 14:07] LABS: Basophils Percent Auto 0.3 % (0.2-2.0); Eosinophils Absolute Auto 0.1 10^3/uL (0.0-0.7); Eosinophils Percent Auto 0.7 % (0.9-7.0); Hematocrit 48.3 % (42.0-54.0); Hemoglobin 15.1 g/dL (14.0-18.0); Immature Granulocytes Abs Auto 0.18 10^3/uL (0.00-0.03); Immature Granulocytes Pct Auto 1.5 % (0.0-0.5); Lymphocytes Absolute Auto 0.8 10^3/uL (1.2-3.8); Lymphocytes Percent Auto 6.9 % (20.5-60.0); Mean Corpuscular HGB Conc 31.3 g/dL (29.9-35.2); Mean Corpuscular Hemoglobin 31.1 pg (25.9-34.0); Mean Corpuscular Volume 99.6 fL (80.0-94.0); Mean Platelet Volume 10.3 fL (9.5-13.5); Monocytes Absolute Auto 0.2 10^3/uL (0.3-0.8); Monocytes Percent Auto 1.3 % (1.7-12.0); Neutrophils Absolute Auto 10.8 10^3/uL (1.4-6.5); Neutrophils Percent Auto 89.3 % (43.0-75.0); Platelet Count 242 10^3/uL (150-450); Red Blood Count 4.85 10^6/uL (4.70-6.10); Red Cell Distribution Width 12.5 % (11.0-15.0); White Blood Count 12.1 10^3/uL (4.0-11.0)
[2023-08-01 14:18] LABS: Anion Gap 6.4; BUN Creatinine Ratio 14.3; Calcium 9.2 mg/dL (8.5-10.1); Carbon Dioxide 36.6 mmol/L (21.0-32.0); Chloride 103 mmol/L (98-107); Estimated GFR (African America >60 (>=60); Estimated GFR (Non-African Ame >60 (>=60); Glucose 98 mg/dL (74-106); Sodium 142 mmol/L (136-145); Troponin I High Sensitivity 8.4 pg/mL (4.0-76.1)
[2023-08-01] MEDS: METHYLPREDNISOLONE SOD SUCC PF 125 MG/2 ML VIAL IVP ×2 (14:25→22:44)
--- NOTE | 2023-08-01 16:29 | P.HP_ITS ---
<Statement entered by Jasmina Espinoza DO - 08/01/23 17:16> This documentation has been reviewed and approved. Patient also seen and evaluated by me at the time of admission exam and agree with the above plan of care. HPI H&P: HPI History of Present Illness Chief complaint: SOB, COPD Exacerbation Narrative: 08/01/23 4460 This is a 72-year-old male patient with a past medical history as outlined below including end-stage COPD, mild dementia, hypothyroidism, hypertension, BPH, and essential tremors; who presented to the ED today complaining of a 5-day course of increased shortness of breath. The patient follows with Dr. Schmitz, shipping and receiving coordinator and has a exacerbation regimen to prevent hospitalization. He was concerned that he was doing this too often and so waited to initiate this regimen until today. Unfortunately he was so short of breath he was worried that he could not ambulate through the house and presented to the ED for further evaluation. Workup in the ED was essentially benign with chest x-ray showing no acute disease and mild leukocytosis, likely due to chronic steroid administration. He was afebrile and respiratory panel was negative. As he had significant symptoms and diminished lung sounds of COPD exacerbation he is being admitted to the hospitalist service as an inpatient. At the time of my exam the patient is resting on her bed on the medical floor having just arrived from the ED. He reports feeling a lot better than when he arrived in the ER. He is able to complete 5-7 word sentences and is using abdominal accessory muscles. He reports using 3 to 4 L of oxygen at home at baseline but had increased his O2 use to 5 L for the last 3 days due to his worsening shortness of breath. He has a frequent productive cough of clear sputum and that has not been significantly worse over the last few days and he has been afebrile. He has shown worsening activity tolerance over the last few days and has difficulty ambulating at all at this time, even with O2 supplementation. Opioid HPI Opioid Management Most Recent Opioid Data: Last ORT Total Score 3 08/01/23 16:16 Last ORT Risk Category Low Risk 08/01/23 16:16 Review of Systems ROS Status of ROS 10 or more systems reviewed and unremark able except as noted in history and below [facility] PFS Medical History (Updated 08/01/23 @ 17:02 by Jerri Byrne NP) Dementia ?F03.90 - Unspecified dementia, unspecified severity, without behavioral disturbance, psychotic disturbance, mood disturbance, and anxiety (ICD-10) HTN (hypertension) ?I10 - Essential (primary) hypertension (ICD-10) Hyperlipidemia ?E78.5 - Hyperlipidemia, unspecified (ICD-10) Essential tremor ?G25.0 - Essential tremor (ICD-10) BPH (benign prostatic hyperplasia) ?N40.0 - Benign prostatic hyperplasia without lower urinary tract symptoms (ICD-10) Hypothyroid ?E03.9 - Hypothyroidism, unspecified (ICD-10) Chronic obstructive pulmonary disease ?J44.9 - Chronic obstructive pulmonary disease, unspecified (ICD-10) Social History Smoking status: Former smoker Highest level of school completed/degree received: high school graduate Meds Home Medications and Allergies Home Medications ?Medication ?Instructions ?Recorded ?Confirmed ?Type albuterol sulfate 90 mcg/actuation 2 puff inhalation Q6H PRN 12/31/22 08/01/23 History aerosol inhaler shortness of breath or wheezing ipratropium 0.5 mg-albuterol 3 mg 3 ml inhalation Q6H PRN shortness 12/31/22 08/01/23 History (2.5 mg base)/3 mL nebulization of breath or wheezing soln metoprolol succinate 100 mg 100 mg PO DAILY 12/31/22 08/01/23 History tablet,extended release 24 hr primidone 50 mg tablet 50 mg PO BID 12/31/22 08/01/23 History tamsulosin 0.4 mg capsule 0.8 mg PO Q24H 12/31/22 08/01/23 History L.acidophil-L.casei-B.bifid-B.longum-FOS 1 cap PO DAILY 08/01/23 08/01/23 History 2 billion cell-50 mg capsule (Probiotic Blend) albuterol sulfate 2.5 mg/3 mL 2.5 mg inhalation Q4H PRN 08/01/23 08/01/23 History (0.083 %) solution for nebulization shortness of breath or wheezing ascorbic acid (vitamin C) 500 mg 500 mg PO DAILY 08/01/23 08/01/23 History tablet (C-500) atorvastatin 80 mg tablet 80 mg PO DAILY 08/01/23 08/01/23 History azithromycin 250 mg tablet 250 mg PO .mwf 08/01/23 08/01/23 History cholecalciferol (vitamin D3) 25 25 mcg PO DAILY 08/01/23 08/01/23 History mcg (1,000 unit) tablet (Vitamin D3) coenzyme Q10 200 mg capsule (Co 200 mg PO QPM 08/01/23 08/01/23 History Q-10) cyanocobalamin (vitamin B-12) 5,000 mcg sublingual QPM 08/01/23 08/01/23 History 5,000 mcg sublingual tablet (Vitamin B-12) donepezil 10 mg tablet 10 mg PO DAILY 08/01/23 08/01/23 History fluticasone furoate 200 1 inh inhalation Q24H 08/01/23 08/01/23 History mcg-vilanterol 25 mcg/dose inhalation powder (Breo Ellipta) fluticasone propionate 50 1 spray intranasal DAILY 08/01/23 08/01/23 History mcg/actuation nasal spray,suspension (Flonase Allergy Relief) levothyroxine 100 mcg tablet 100 mcg PO DAILY 08/01/23 08/01/23 History lutein 25 mg-zeaxanthin 5 mg 1 cap PO QPM 08/01/23 08/01/23 History capsule omega 4-esz-udo-fish oil 1,000 mg 1 cap PO QPM 08/01/23 08/01/23 History (120 mg-180 mg) capsule (Fish Oil) prednisone 5 mg tablet 5 mg PO DAILY 08/01/23 08/01/23 History Allergies Allergy/AdvReac Type Severity Reaction Status Date / Time ciprofloxacin [From Cipro] AdvReac Severe Cramping Verified 08/01/23 13:23 of the Muscles levofloxacin AdvReac Severe Cramping Verified 08/01/23 13:23 of the Muscles Exam Constitutional Vital Signs, click to edit/add: Last Vital Signs Temp 98.0 F 08/01/23 13:20 Pulse 100 H 08/01/23 14:32 Resp 24 H 08/01/23 14:32 BP 129/70 08/01/23 14:32 Pulse Ox 93 L 08/01/23 14:32 O2 Del Method Nasal Cannula 08/01/23 14:01 O2 Flow Rate 2 08/01/23 14:32 Common normals: no apparent distress, oriented x3, alert and well nourished General appearance: cooperative Orientation/consciousness: Yes awake HENMT Common normals: normocephalic, head/scalp atraumatic, hearing grossly normal bilaterally, external nose normal and moist oral mucous membranes Eye Common normals: PERRL, EOMs intact bilaterally, conjunctivae normal and no scleral icterus Alignment: alignment normal Eyelid: eyelids normal Neck & C-Spine Common normals: full ROM, supple and no JVD Chest Common normals: inspection of chest normal Chest: symmetrical chest wall rise Respiratory Common normals: normal respiratory effort, no retractions and clear to auscultation bilaterally Effort & inspection: uses accessory muscles and prolonged expiratory phase; not able to speak in complete sentences (5-7 word sentences. Dyspneic with prolonged conversation) Auscultation: abnormal I/E ratio, breath sounds absent bilateral (BLL) and diminished lung sounds (BUL) Cardio Common normals: no JVD, regular rate, regular rhythm, S1 normal heart sound, S2 normal heart sound, no gallops, no clicks, no murmurs, no rub and peripheral pulses 2+ throughout Heart sounds: other (distant HT) GI Common normals: Normal to inspection, nondistended, normoactive bowel sounds present, soft to palpation, non-tender, no hepatosplenomegaly, no masses and no bruits Bladder/kidney exam: bladder normal to palpation Back & Pelvis Common normals: thoracic and lumbar spine normal to inspection Extremity Common normals: normal capillary refill and no pedal edema General: normal exam except as noted; no cyanosis Neuro Gale Coma Scale: GCS not evaluated Common normals: CN's II-XII intact bilaterally, moves all extremities, no focal motor deficits and no sensory deficits noted Speech: speech normal Motor exam: strength 5/5 throughout Psych Common normals: mental status grossly normal, thought process normal, affect normal and activity/motor behavior normal Results Labs Labs: Short CBC 08/01/23 Range/Units 13:30 WBC 12.1 H (4.0-11.0) 10^3/uL Hgb 15.1 (14.0-18.0) g/dL Hct 48.3 (42.0-54.0) % Plt Count 242 (150-450) 10^3/uL BMP 08/01/23 13:30 Sodium 142 Potassium 4.0 Chloride 103 Carbon Dioxide 36.6 H BUN 13.0 Creatinine 0.91 Glucose 98 Calcium 9.2 Pulse Oximetry Attestation: I have reviewed the pertinent pulse oximetry results. Imaging Chest x-ray: Attestation: I have reviewed the pertinent imaging results. Radiologist's impression: IMPRESSION: No acute infiltrate or evidence of cardiac decompensation. The overall appearance of the chest is essentially unchanged. Assessment and Plan Assessment and Plan (1) Acute exacerbation of chronic obstructive pulmonary disease: Assessment and Plan: Acute * Adm inpatient * We anticipate greater than 2 midnight course of care for medically necessary hospital care including IVP steroids round the clock, scheduled and PRN breathing treatments and close monitoring by respiratory therapy. * Duonebs scheduled q6h scheduled * Albuterol nebs PRN q2h * Pulmicort nebs BID * Vest physiotherapy BID * Solu-medrol 125mg q8h * Doxycycline BID for suspected underlying bronchitis * CBC, CMP daily (2) Hypothyroid: Assessment and Plan: Chronic * Continue home levothyroxine (3) BPH (benign prostatic hyperplasia): Assessment and Plan: Chronic * Continue home tamsulosin (4) Essential tremor: Assessment and Plan: Chronic * Continue home Primidone (5) Hyperlipidemia: Assessment and Plan: Chronic * Continue home statin (6) HTN (hypertension): Assessment and Plan: Chronic * Continue home Toprol XL (7) Dementia: Assessment and Plan: Chronic * Continue home Donepezil
[2023-08-01] MEDS: IPRATROPIUM/ALBUTEROL SULFATE 3 ML AMPUL.NEB IH ×2 (16:38→22:10)
--- NOTE | 2023-08-01 16:46 | RESP.RT ---
titrated down to 1L
[2023-08-01] MEDS: DOXYCYCLINE MONOHYDRATE 100 MG CAPSULE PO (17:48)
[2023-08-01] MEDS: CEFTRIAXONE 1,000 MG in 0.9 % SODIUM CHLORIDE 50 ML 100 MG IV (17:59)
[2023-08-01] MEDS: 0.9 % SODIUM CHLORIDE 250 ML 10 ML IV (17:59)
[2023-08-01] MEDS: AZITHROMYCIN 500 MG in 0.9 % SODIUM CHLORIDE 250 ML 250 MG IV (18:00)
[2023-08-01] MEDS: ENOXAPARIN SODIUM 40 MG/0.4 ML SYRINGE SUBQ (21:19)
[2023-08-01] MEDS: TAMSULOSIN HCL 0.4 MG CAPSULE 0.800000000000000044 MG PO (21:20)
[2023-08-01] MEDS: BUDESONIDE 0.5 MG/2 ML AMPULE NEB IH (22:10)
[2023-08-02] VITALS (11 sets, daily range): BP systolic 101–134; BP diastolic 51–78; PULSE 69–86; TEMP 36.4–37; O2SAT 90–93
[2023-08-02] MEDS: IPRATROPIUM/ALBUTEROL SULFATE 3 ML AMPUL.NEB IH ×4 (04:41→23:02)
[2023-08-02 04:57] LABS: Basophils Percent Auto 0.1 % (0.2-2.0); Hematocrit 40.1 % (42.0-54.0); Hemoglobin 12.9 g/dL (14.0-18.0); Immature Granulocytes Abs Auto 0.09 10^3/uL (0.00-0.03); Immature Granulocytes Pct Auto 1.1 % (0.0-0.5); Lymphocytes Absolute Auto 0.7 10^3/uL (1.2-3.8); Lymphocytes Percent Auto 8.9 % (20.5-60.0); Mean Corpuscular HGB Conc 32.2 g/dL (29.9-35.2); Mean Corpuscular Hemoglobin 31.7 pg (25.9-34.0); Mean Corpuscular Volume 98.5 fL (80.0-94.0); Mean Platelet Volume 10.3 fL (9.5-13.5); Monocytes Absolute Auto 0.1 10^3/uL (0.3-0.8); Monocytes Percent Auto 1.2 % (1.7-12.0); Neutrophils Absolute Auto 7.3 10^3/uL (1.4-6.5); Neutrophils Percent Auto 88.7 % (43.0-75.0); Platelet Count 220 10^3/uL (150-450); Red Blood Count 4.07 10^6/uL (4.70-6.10); Red Cell Distribution Width 12.1 % (11.0-15.0); White Blood Count 8.2 10^3/uL (4.0-11.0)
[2023-08-02 05:38] LABS: Alanine Aminotransferase 31 U/L (16-63); Alkaline Phosphatase 87 U/L (46-116); Anion Gap 10.4; Aspartate Amino Transferase 15 U/L (15-37); BUN Creatinine Ratio 21.7; Bilirubin Total 0.2 mg/dL (0.2-1.0); Calcium 8.6 mg/dL (8.5-10.1); Chloride 104 mmol/L (98-107); Estimated GFR (African America >60 (>=60); Estimated GFR (Non-African Ame >60 (>=60); Globulin 3.1 g/dL; Glucose 128 mg/dL (74-106); Potassium 4.4 mmol/L (3.5-5.1); Sodium 140 mmol/L (136-145); Total Protein 6.1 g/dL (6.4-8.2)
[2023-08-02] MEDS: METHYLPREDNISOLONE SOD SUCC PF 125 MG/2 ML VIAL IVP (06:18)
[2023-08-02] MEDS: LEVOTHYROXINE SODIUM 100 MCG TABLET PO (06:18)
[2023-08-02] MEDS: DOXYCYCLINE MONOHYDRATE 100 MG CAPSULE PO ×2 (06:18→17:00)
[2023-08-02] MEDS: FLUTICASONE PROPIONATE 50 MCG NASAL SPRAY 1 SPRAY NS (08:30)
[2023-08-02] MEDS: PRIMIDONE 50 MG TABLET 100 MG PO (08:31)
[2023-08-02] MEDS: ATORVASTATIN CALCIUM 40 MG TABLET 80 MG PO (08:31)
[2023-08-02] MEDS: METOPROLOL SUCCINATE 100 MG TAB.ER.24H PO (08:31)
--- NOTE | 2023-08-02 09:58 | P.PN_ITS ---
<Statement entered by Jasmina Espinoza, - 08/02/23 11:27> This documentation has been reviewed and approved. I have also seen and evaluated patient and agree to continue treatment, decreasing IV steroids and hopeful discharge home tomorrow before his pulmonary appt. Progress Note: Subjective Subjective Interval history: 08/02/23 0830 The patient is resting in bed at the time of my exam, having just finished eating his breakfast. He reports feeling better overnight and tolerated his home CPAP with O2 bled in per his home routine very well overnight. His lung sounds are improved from yesterday with increased air exchange noted in the bases. He continues to require high-dose IV steroids which we we will begin to titrate down today. Discharge likely in the next 24 to 48 hours pending clinical course. Exam Constitutional Vital Signs, click to edit/add: Last Vital Signs Temp 98.6 F 08/02/23 08:00 Pulse 84 08/02/23 08:00 Resp 20 08/02/23 08:00 BP 122/73 08/02/23 08:00 Pulse Ox 90 L 08/02/23 08:00 O2 Del Method Room Air 08/02/23 08:00 O2 Flow Rate 2 08/02/23 04:57 Common normals: no apparent distress, oriented x3 and alert General appearance: cooperative Orientation/consciousness: Yes awake HENNC Common normals: normocephalic, head/scalp atraumatic and hearing grossly normal bilaterally Eye Common normals: PERRL, EOMs intact bilaterally, conjunctivae normal and no scleral icterus General eye: normal appearance of both eyes Chest Common normals: inspection of chest normal Chest: symmetrical chest wall rise Respiratory Common normals: normal respiratory effort, no use of accessory muscles and clear to auscultation bilaterally Effort & inspection: able to speak in complete sentences Auscultation: diminished lung sounds (BLL, but improved air exchange ) Cardio Common normals: regular rate, regular rhythm, S1 normal heart sound, S2 normal heart sound, no murmurs and peripheral pulses 2+ throughout GI Common normals: Normal to inspection, nondistended, normoactive bowel sounds present, soft to palpation, non-tender and no hepatosplenomegaly Bladder/kidney exam: bladder normal to palpation Extremity Common normals: normal to inspection and no calf tenderness General: no cyanosis and no edema Neuro Common normals: CN's II-XII intact bilaterally, moves all extremities, no focal motor deficits and no sensory deficits noted Psych Common normals: mental status grossly normal Progress Note: Objective Labs Labs: Short CBC 08/01/23 08/02/23 Range/Units 13:30 04:05 WBC 12.1 H 8.2 (4.0-11.0) 10^3/uL Hgb 15.1 12.9 L (14.0-18.0) g/dL Hct 48.3 40.1 L (42.0-54.0) % Plt Count 242 220 (150-450) 10^3/uL BMP 08/01/23 08/02/23 13:30 04:05 Sodium 142 140 Potassium 4.0 4.4 Chloride 103 104 Carbon Dioxide 36.6 H 30.0 BUN 13.0 18.0 Creatinine 0.91 0.83 Glucose 98 128 H Calcium 9.2 8.6 Liver Function 08/02/23 Range/Units 04:05 Total Bilirubin 0.2 (0.2-1.0) mg/dL AST 15 (15-37) U/L ALT 31 (16-63) U/L Alkaline Phosphatase 87 (46-116) U/L Albumin 3.0 L (3.4-5.0) g/dL Progress Note: A&P Assessment and Plan (1) Acute exacerbation of chronic obstructive pulmonary disease: Assessment and Plan: Acute * Improving * Continue Duonebs scheduled q6h scheduled * Continue Albuterol nebs PRN q2h * Continue Pulmicort nebs BID * Continue Vest physiotherapy BID * Pt has home unit that is part of his home COPD exacerbation protocol * Continue Solu-medrol, but reduce to 60 mg q8h * Plan to discharge home on an extended steroid taper * Continue Doxycycline BID for suspected underlying bronchitis * Nursing to ambulate in hallway and monitor O2 sats and respiratory effort w/ ambulation * Maintaining sats w/ home O2 levels, but still w/ increased WOB w/ activity * CBC, CMP daily (2) Chronic respiratory failure with hypoxia, on home O2 therapy: Assessment and Plan: Chronic * Continue O2 supplementation - try to keep at home O2 delivery of 2-3L (Concentrated O2) * Currently requiring 1-2 liters (Compressed liquid O2) * Delivery is stable at baseline (3) Hypothyroid: Assessment and Plan: Chronic * Continue home levothyroxine (4) BPH (benign prostatic hyperplasia): Assessment and Plan: Chronic * Continue home tamsulosin (5) Essential tremor: Assessment and Plan: Chronic * Continue home Primidone (6) Hyperlipidemia: Assessment and Plan: Chronic * Continue home statin (7) HTN (hypertension): Assessment and Plan: Chronic * Continue home Toprol XL (8) Dementia: Assessment and Plan: Chronic * Continue home Donepezil
--- NOTE | 2023-08-02 10:00 | CM.NOTE ---
Rounds made with Dr. Espinoza, no discharge for today. Continue IV steroids and breathing treatments. Increase activity today.
[2023-08-02] MEDS: BUDESONIDE 0.5 MG/2 ML AMPULE NEB IH ×2 (10:31→23:02)
--- NOTE | 2023-08-02 11:35 | SWNOTE1 ---
SW spoke with case management and pt has an inogen machine for his oxygen. During morning rounds nursing made us aware that pt does have [facility] palliative care, they had called the floor asking for an update earlier today. No needs identified at discharge for pt.
[2023-08-02] MEDS: METHYLPREDNISOLONE SOD SUCC PF 125 MG/2 ML VIAL 60 MG IVP ×2 (13:28→21:48)
--- NOTE | 2023-08-02 14:38 | NUTR.NU ---
Pt admitted 08/01/23 w/exacerbation of COPD. PMH includes dementia, CRF, HTN, HLD, hypothyroidism. He receives palliative services through [facility], per Nursing. Pt denies weight changes, indicates no loss of appetite. PO intakes of Regular diet today are 100%. No dietary concerns at this time. Will continue to follow PRN.
[2023-08-02] MEDS: ENOXAPARIN SODIUM 40 MG/0.4 ML SYRINGE SUBQ (21:48)
[2023-08-02] MEDS: DONEPEZIL HCL 10 MG TABLET PO (21:48)
[2023-08-02] MEDS: TAMSULOSIN HCL 0.4 MG CAPSULE 0.800000000000000044 MG PO (21:48)
[2023-08-03 04:54] LABS: Basophils Percent Auto 0.1 % (0.2-2.0); Hematocrit 42.7 % (42.0-54.0); Hemoglobin 13.5 g/dL (14.0-18.0); Immature Granulocytes Abs Auto 0.11 10^3/uL (0.00-0.03); Immature Granulocytes Pct Auto 0.7 % (0.0-0.5); Lymphocytes Absolute Auto 0.7 10^3/uL (1.2-3.8); Lymphocytes Percent Auto 4.4 % (20.5-60.0); Mean Corpuscular HGB Conc 31.6 g/dL (29.9-35.2); Mean Corpuscular Hemoglobin 31.4 pg (25.9-34.0); Mean Corpuscular Volume 99.3 fL (80.0-94.0); Mean Platelet Volume 10.5 fL (9.5-13.5); Monocytes Absolute Auto 0.3 10^3/uL (0.3-0.8); Monocytes Percent Auto 1.7 % (1.7-12.0); Neutrophils Percent Auto 93.1 % (43.0-75.0); Platelet Count 197 10^3/uL (150-450); Red Cell Distribution Width 12.4 % (11.0-15.0); White Blood Count 16.1 10^3/uL (4.0-11.0)
[2023-08-03 04:56] VITALS: PULSE 78; O2SAT 94
[2023-08-03] MEDS: IPRATROPIUM/ALBUTEROL SULFATE 3 ML AMPUL.NEB IH (04:56)
[2023-08-03 05:11] LABS: Alanine Aminotransferase 26 U/L (16-63); Albumin Level 3.2 g/dL (3.4-5.0); Alkaline Phosphatase 86 U/L (46-116); Anion Gap 10.1; Aspartate Amino Transferase 17 U/L (15-37); BUN Creatinine Ratio 34.1; Bilirubin Total 0.3 mg/dL (0.2-1.0); Calcium 9.1 mg/dL (8.5-10.1); Carbon Dioxide 30.4 mmol/L (21.0-32.0); Chloride 103 mmol/L (98-107); Estimated GFR (African America >60 (>=60); Estimated GFR (Non-African Ame >60 (>=60); Globulin 3.2 g/dL; Glucose 142 mg/dL (74-106); Potassium 4.5 mmol/L (3.5-5.1); Sodium 139 mmol/L (136-145); Total Protein 6.4 g/dL (6.4-8.2)
[2023-08-03] MEDS: METHYLPREDNISOLONE SOD SUCC PF 125 MG/2 ML VIAL 60 MG IVP (05:58)
[2023-08-03] MEDS: DOXYCYCLINE MONOHYDRATE 100 MG CAPSULE PO (05:59)
[2023-08-03] MEDS: LEVOTHYROXINE SODIUM 100 MCG TABLET PO (05:59)
[2023-08-03 06:03] VITALS: BP 144/75; PULSE 72; TEMP 36.5; O2SAT 92
--- NOTE | 2023-08-03 07:23 | P.DS_ITS ---
<Statement entered by Jasmina Espinoza DO - 08/03/23 10:53> This documentation has been reviewed and approved. I have also seen and evaluated patient at the time of discharge and agree with discharge today so he may see his custodian athletic equipment, long steroid taper and doxy. DS: Providers Provider Date of admission: 08/01/23 15:47 Primary care physician: BRITTANI RAE Discharging clinician: Jerri Byrne DS: Diagnosis Discharge Diagnosis (1) Acute exacerbation of chronic obstructive pulmonary disease: (2) Leukocytosis: Qualifiers: Leukocytosis type: other Qualified Code(s): D72.828 - Other elevated white blood cell count (3) Hyperglycemia: (4) Chronic respiratory failure with hypoxia, on home O2 therapy: (5) Hypothyroid: (6) BPH (benign prostatic hyperplasia): (7) Essential tremor: (8) Hyperlipidemia: (9) HTN (hypertension): (10) Dementia: DS: Summary Hospital Course Hospital Course: The patient was admitted with an acute exacerbation of COPD. He was treated with high-dose IV steroids, scheduled nebulized breathing treatments, and doxycycline for suspected underlying acute bronchitis. His dyspnea and lung sounds slowly improved over the course of his admission. His o2 delivery was at his baseline 2-3 liters throughout his stay. He developed leukocytosis and hyperglycemia prior to discharge 2/2 to high dose corticosteroid administration. He is being discharged home in stable condition with prescriptions for a prolonged steroid taper and doxycycline prescription. He should follow up with his PCP in 5-7 days and with his custodian athletic equipment as scheduled later on the day of discharge. Status at Discharge Functional status at discharge: independent ambulation Overall status at discharge: patient is back to baseline Time Spent with Patient Time attestation: Total time spent providing and/or coordinating discharge services: Time spent: greater than 30 minutes Specific discharge activities: Physical exam, discussion of discharge plan, que stions answered. Exam Constitutional Vital Signs, click to edit/add: Last Vital Signs Temp 97.7 F 08/03/23 06:03 Pulse 72 08/03/23 06:03 Resp 20 08/03/23 06:03 BP 144/75 H 08/03/23 06:03 Pulse Ox 92 L 08/03/23 06:03 O2 Del Method Home BIPAP / CPAP 08/03/23 06:03 O2 Flow Rate 3 08/03/23 04:56 Common normals: no apparent distress, oriented x3 and alert General appearance: cooperative Orientation/consciousness: Yes awake HENMT Common normals: normocephalic and head/scalp atraumatic Eye Common normals: PERRL, EOMs intact bilaterally, conjunctivae normal and no scleral icterus Neck & C-Spine Common normals: no JVD Respiratory Common normals: normal respiratory effort and no use of accessory muscles Effort & inspection: able to speak in complete sentences and symmetric chest movement Auscultation: wheezes (Faint EE RLL, DAMIR) and diminished lung sounds (BLL, L>R) Cardio Common normals: no JVD, regular rate, regular rhythm, S1 normal heart sound, S2 normal heart sound, no murmurs and peripheral pulses 2+ throughout GI Common normals: Normal to inspection, nondistended, normoactive bowel sounds present, soft to palpation and non-tender Bladder/kidney exam: bladder normal to palpation Extremity Common normals: normal to inspection, full ROM, normal capillary refill and no pedal edema General: no cyanosis Neuro Common normals: moves all extremities, no focal motor deficits and no sensory deficits noted Speech: speech normal Psych Common normals: mental status grossly normal and activity/motor behavior normal DS: Data Data Completed and Pending Labs on day of discharge: Labs from last 24 hours 08/03/23 04:05 WBC 16.1 H RBC 4.30 L Hgb 13.5 L Hct 42.7 MCV 99.3 H MCH 31.4 MCHC 31.6 RDW 12.4 Plt Count 197 MPV 10.5 Neut % (Auto) 93.1 H Lymph % (Auto) 4.4 L [place]y % (Auto) 1.7 Eos % (Auto) 0.0 L Baso % (Auto) 0.1 L Neut # (Auto) 15.0 H Lymph # (Auto) 0.7 L [place] # (Auto) 0.3 Eos # (Auto) 0.0 Baso # (Auto) 0.0 Abs Immat Gran (auto) 0.11 H Imm/Tot Granulo (auto) 0.7 H Sodium 139 Potassium 4.5 Chloride 103 Carbon Dioxide 30.4 Anion Gap 10.1 BUN 28.0 H Creatinine 0.82 Est GFR ( Amer) >60 Est GFR (Non-Af Amer) >60 BUN/Creatinine Ratio 34.1 Glucose 142 H Calcium 9.1 Total Bilirubin 0.3 AST 17 ALT 26 Alkaline Phosphatase 86 Total Protein 6.4 Albumin 3.2 L Globulin 3.2 Albumin/Globulin Ratio 1.0 Imaging Chest x-ray: Radiologist's impression: IMPRESSION: No acute infiltrate or evidence of cardiac decompensation. The overall appearance of the chest is essentially unchanged. Discharge Plan Discharge Disposition: Home, Self-Care Condition: Fair Discharge Medications: New prednisone 10 mg tablet See Rx Instructions .ROUTE .COMPLEX 35 Days Qty: 105 0RF Rx Instructions: 5 tabs daily x 7 days, then 4 tabs daily x 7 days, then 3 tabs daily x 7 days, then 2 tabs daily x 7 days, then 1 tab daily x 7 days, resume daily 5 mg doxycycline monohydrate 100 mg tablet 100 mg PO BID 7 Days Qty: 14 0RF Continued albuterol sulfate 90 mcg/actuation HFA aerosol inhaler 2 puff INHALATION Q6H PRN (Reason: shortness of breath or wheezing) ipratropium-albuterol 0.5 mg-3 mg(2.5 mg base)/3 mL solution for nebulization 3 ml INHALATION Q6H PRN (Reason: shortness of breath or wheezing) metoprolol succinate 100 mg tablet extended release 24 hr 100 mg PO DAILY primidone 50 mg tablet 100 mg PO QAM tamsulosin 0.4 mg capsule 0.8 mg PO .qhs levothyroxine 100 mcg tablet 100 mcg PO DAILY atorvastatin 80 mg tablet 80 mg PO DAILY donepezil 10 mg tablet 10 mg PO .qhs albuterol sulfate 2.5 mg /3 mL (0.083 %) solution for nebulization 2.5 mg inhalation Q4H PRN (Reason: shortness of breath or wheezing) fluticasone furoate-vilanterol [Breo Ellipta] 200-25 mcg/dose blister with device 2 inh INHALATION BID fluticasone propionate [Flonase Allergy Relief] 50 mcg/actuation spray,suspension 1 spray INTRANASAL DAILY cyanocobalamin (vitamin B-12) [Vitamin B-12] 5,000 mcg tablet, sublingual 5,000 mcg sublingual QPM ascorbic acid (vitamin C) [C-500] 500 mg tablet 500 mg PO DAILY cholecalciferol (vitamin D3) [Vitamin D3] 25 mcg (1,000 unit) tablet 25 mcg PO DAILY Probiotic Blend 2 billion cell-50 mg capsule 1 cap PO DAILY Rx Instructions: give with meal/snack lutein-zeaxanthin 25-5 mg capsule 1 cap PO QPM omega 5-pcz-nvx-fish oil [Fish Oil] 1,000 mg (120 mg-180 mg) capsule 1 cap PO QPM coenzyme Q10 [Co Q-10] 200 mg capsule 200 mg PO QPM Held prednisone 5 mg tablet 5 mg PO DAILY Hold Instructions: Hold until Prednisone taper is completed, then resume 5mg daily azithromycin 250 mg tablet 250 mg PO .mwf Hold Instructions: Until Doxycycline course is completed, then resume Rx Instructions: in the morning Activity: increase activity as tolerated Diet: advance to your usual diet Print Language: Turkmen Patient Instructions: COPD (Chronic Obstructive Pulmonary Disease) (DC) Forms: Portal Instructions Follow Up Appointments: Brittani Rae [phone] keep Pulmonology appointment for Monday @ 1:00 Discharge Date/Time: 08/03/23 10:05
[2023-08-03] MEDS: FLUTICASONE PROPIONATE 50 MCG NASAL SPRAY 1 SPRAY NS (09:30)
[2023-08-03] MEDS: METOPROLOL SUCCINATE 100 MG TAB.ER.24H PO (09:30)
[2023-08-03] MEDS: ATORVASTATIN CALCIUM 40 MG TABLET 80 MG PO (09:30)
[2023-08-03] MEDS: PRIMIDONE 50 MG TABLET 100 MG PO (09:30)
--- NOTE | 2023-08-03 10:28 | CM.NOTE ---
Rounds made with Dr. Sari Espinoza and to be discharged home today. Patient currently has [facility] palliative care.
--- NOTE | 2023-08-04 10:52 | CM.DCFOLLOWU ---
Person spoke with:patient How are you feeling? well How is your pain? no pain, shortness of breath comes and goes. Did a breathing treatment this morning Did you understand your discharge instructions? yes Do you have any questions about your discharge instructions? no Were you given any prescriptions at discharge? yes Were you able to get your prescriptions filled? yes Do you understand how to take your medications as ordered? yes Do you have any questions about your follow up appointment and do you plan to keep your follow up appointment? no questions, reviewed with patient Is there anything else that you would like to discuss? no Questions/Comments/Concerns/Other: N/A
== END 2023-08-03 10:05 | disposition home or self-care (01) | DRG 191 ==
LOC: ER 15:40 → MS 15:51
PROVIDERS: Nurse Practitioner; Admitting Provider Family Medicine; Emergency Provider Emergency Medicine; PCP Family Medicine; Visit Provider Family Medicine
DX: J44.1 Chronic obstructive pulmonary disease with (acute) exacerbation (principal); J96.11 Chronic respiratory failure with hypoxia; E03.9 Hypothyroidism, unspecified; N40.0 Benign prostatic hyperplasia without lower urinary tract symptoms; G25.0 Essential tremor; E78.5 Hyperlipidemia, unspecified; I10 Essential (primary) hypertension; J20.9 Acute bronchitis, unspecified; J44.0 Chronic obstructive pulmonary disease with (acute) lower respiratory infection; F03.90 Unspecified dementia, unspecified severity, without behavioral disturbance, psychotic disturbance, mood disturbance, and anxiety; R73.9 Hyperglycemia, unspecified; D72.828 Other elevated white blood cell count; Z99.81 Dependence on supplemental oxygen; Z66 Do not resuscitate; Z87.891 Personal history of nicotine dependence; Z79.899 Other long term (current) drug therapy; Z79.890 Hormone replacement therapy; Z20.822 Contact with and (suspected) exposure to COVID-19
CPT/HCPCS: 0202U; 36415; 71045; 80048; 80053; 84484; 85025; 87040; 93005; 94640; 94667; 94668; 94761; 96365; 96366; 96368; 96372; 96375; 96376; 99285; J0456; J2919